=== PATIENT | male | born 1950 | race Caucasian/White ===

== ENCOUNTER 2023-04-14 08:57 | Outpatient (OUT) | payer MEDICARE, SELFPAY ==
[2023-04-14 09:23] LABS: Estimated Average Glucose 137 mg/dL; Glycohemoglobin A1C 6.4 % (4.5-6.2)
[2023-04-14 10:53] LABS: Anion Gap 7.7; BUN Creatinine Ratio 19.3; Calcium 9.5 mg/dL (8.5-10.1); Carbon Dioxide 35.7 mmol/L (21.0-32.0); Chloride 105 mmol/L (98-107); Estimated GFR (African America >60 (>=60); Estimated GFR (Non-African Ame >60 (>=60); Glucose 111 mg/dL (74-106); Potassium 4.4 mmol/L (3.5-5.1); Sodium 144 mmol/L (136-145)
== END 2023-04-14 08:58 | disposition home or self-care (01) ==
LOC: LAB 09:00
PROVIDERS: PCP Nurse Practitioner; Visit Provider Nurse Practitioner
DX: E11.9 Type 2 diabetes mellitus without complications (principal)
CPT/HCPCS: 36415; 80048; 83036

== ENCOUNTER 2024-01-17 10:53 | Outpatient (OUT) | payer MEDICARE, MEDICAID, SELFPAY ==
[2024-01-17 11:38] LABS: Estimated Average Glucose 131 mg/dL; Glycohemoglobin A1C 6.2 % (4.5-6.2)
[2024-01-17 11:40] LABS: Basophils Absolute Auto 0.1 10^3/uL (0.0-0.1); Basophils Percent Auto 1.4 % (0.2-2.0); Eosinophils Absolute Auto 0.4 10^3/uL (0.0-0.7); Eosinophils Percent Auto 5.2 % (0.9-7.0); Hematocrit 51.1 % (42.0-54.0); Hemoglobin 15.6 g/dL (14.0-18.0); Immature Granulocytes Abs Auto 0.01 10^3/uL (0.00-0.03); Immature Granulocytes Pct Auto 0.1 % (0.0-0.5); Lymphocytes Absolute Auto 1.7 10^3/uL (1.2-3.8); Lymphocytes Percent Auto 21.1 % (20.5-60.0); Mean Corpuscular HGB Conc 30.5 g/dL (29.9-35.2); Mean Corpuscular Hemoglobin 28.6 pg (25.9-34.0); Mean Corpuscular Volume 93.8 fL (80.0-94.0); Mean Platelet Volume 10.8 fL (9.5-13.5); Monocytes Absolute Auto 0.6 10^3/uL (0.3-0.8); Neutrophils Absolute Auto 5.1 10^3/uL (1.4-6.5); Neutrophils Percent Auto 64.2 % (43.0-75.0); Platelet Count 186 10^3/uL (150-450); Red Blood Count 5.45 10^6/uL (4.70-6.10); Red Cell Distribution Width 14.5 % (11.0-15.0); White Blood Count 7.9 10^3/uL (4.0-11.0)
[2024-01-17 11:48] LABS: Bilirubin Urine NEGATIVE (NEGATIVE); Blood Urine TRACE-I (NEGATIVE); Clarity Urine CLEAR (CLEAR); Color Urine LT. YELLOW (YELLOW); Glucose Urine UA NEGATIVE (NEGATIVE); Ketones Urine NEGATIVE (NEGATIVE); Leukocyte Esterase Urine TRACE (NEGATIVE); Nitrite Urine NEGATIVE (NEGATIVE); Protein Urine 100 mg/dL (NEG/TRACE); Specific Gravity Urine >=1.030 (1.005-1.025); Urobilinogen Urine 0.2 EU/dL (0.2-1.0); pH Urine 5.5 (5.0-9.0)
[2024-01-17 11:49] LABS: Urine Microscopic Indicated YES
[2024-01-17 11:56] LABS: RBC Urine 0-2 #/HPF (0-2); WBC Urine 0-2 #/HPF (NONE SEEN)
[2024-01-17 11:57] LABS: Bacteria Urine NONE SEEN #/HPF (NONE SEEN); Cast Seen? NONE SEEN #/LPF (NONE SEEN); Crystals Seen? None Seen #/HPF (None Seen); Mucus Urine NONE SEEN (NONE SEEN); Squamous Epithelial Cell Urine NONE SEEN #/LPF (NONE/RARE)
[2024-01-17 12:16] LABS: Alanine Aminotransferase 24 U/L (16-63); Albumin Globulin Ratio 0.8; Albumin Level 3.7 g/dL (3.4-5.0); Alkaline Phosphatase 96 U/L (46-116); Anion Gap 10.2; Aspartate Amino Transferase 14 U/L (15-37); BUN Creatinine Ratio 20.9; Bilirubin Total 0.6 mg/dL (0.2-1.0); Calcium 9.6 mg/dL (8.5-10.1); Carbon Dioxide 35.9 mmol/L (21.0-32.0); Chloride 102 mmol/L (98-107); Cholesterol 142 mg/dL (<=200); Estimated GFR (African America >60 (>=60); Estimated GFR (Non-African Ame >60 (>=60); Globulin 4.7 g/dL; Glucose 107 mg/dL (74-106); HDL Cholesterol 47 mg/dL (40-60); LDL Cholesterol Calculated 77.6 mg/dL; Potassium 4.1 mmol/L (3.5-5.1); Sodium 144 mmol/L (136-145); Total Protein 8.4 g/dL (6.4-8.2); Triglycerides 87 mg/dL (<=150); VLDL CHOLESTEROL 17.4 mg/dL
[2024-01-17 12:32] LABS: Prostate Specific Antigen Dx 4.02 ng/mL (<=4.00)
[2024-01-17 13:06] LABS: Creatinine Urine Random 100.18 mg/dL (20.00-300.00); Microalbum Creatinine Ratio Ur 281.4 mg/g (0.0-29.9); Microalbumin Urine Random 28.2 mg/dL (<=30.0)
[2024-01-19 04:07] LABS: PSA, Free 0.37 ng/mL
== END 2024-01-17 10:54 | disposition home or self-care (01) ==
LOC: LAB 10:55
PROVIDERS: PCP Nurse Practitioner; Visit Provider Nurse Practitioner
DX: R31.29 Other microscopic hematuria (principal); I10 Essential (primary) hypertension; Z12.5 Encounter for screening for malignant neoplasm of prostate; E11.9 Type 2 diabetes mellitus without complications; E78.2 Mixed hyperlipidemia; R97.20 Elevated prostate specific antigen [PSA]
CPT/HCPCS: 36415; 80053; 80061; 81001; 82043; 82570; 83036; 84153; 84154; 85025

== ENCOUNTER 2024-02-14 09:00 | Outpatient (OUT) | payer MEDICARE, MEDICAID, SELFPAY ==
[2024-02-14 09:33] LABS: Base Excess ABG 9.3 mmol/L (-2.0-2.0); HCO3 ABG 34.5 mmol/L (22.0-26.0); Oxygen Saturation ABG 86.7 %; pH ABG 7.378 (7.350-7.450)
[2024-02-14 09:34] LABS: Allen Test POSITIVE (POSITIVE); O2 Mode RA; Puncture Site LR
[2024-02-14 09:36] LABS: ABG PCO2 58.6 mmHg (35.0-45.0); PO2 ABG 51.1 mmHg (80.0-100.0)
--- NOTE | 2024-02-14 10:21 | RT_ITS ---
The [facility] Test Date: 2024-02-14 Pat Name: MARKEL RIGGINS Department: Room: - Gender: Male Medical Underwriter: Darell Pacheco RRT : 1950 Requested By: Suman Rutledge Order Number: [id number] Reading MD: Sumna Rutledge Interpretive Statements Pulmonary function testing was completed according to ATS criteria. Findings were considered accurate and reproducible, with exception of DLCO which did not meet ATS standards. Both pre- and post-bronchodilator values utilized for spirometry. Spirometry (based on pre-bronchodilator values): -FEV1/FVC: Normal @ 50% -FEV1: Severely reduced @ 36% -FVC: Severely reduced @ 53% -There is no significant bronchodilator response. Lung volumes by plethysmography (based on pre-bronchodilator values): -RV: Normal @ 113% -TLC: Mild-moderately reduced @ 70% Diffusion capacity: -DLCO: Severe reduction @ 42% when corrected for Hb 15.6g/dL Flow-volume loop: -Severe obstructive pattern Impressions: -Spirometry consistent with a severe obstruction without a bronchodilator response suggestive of COPD. There also appears to be a concomitant restrictive process with decreased TLC and DLCO. Clinical correlation required. Electronically Signed On 02-14-2024 16:23:46 EDT by Suman Rutledge
[2024-02-14] MEDS: ALBUTEROL SULFATE 2.5 MG/3 ML VIAL NEB IH (10:36)
== END 2024-02-14 09:01 | disposition home or self-care (01) ==
LOC: CARD 09:00
PROVIDERS: PCP Nurse Practitioner; Visit Provider Internal Medicine
DX: J43.2 Centrilobular emphysema (principal); J96.11 Chronic respiratory failure with hypoxia
CPT/HCPCS: 36600; 82805; 94060; 94726; 94729; 99406

== ENCOUNTER 2024-06-10 21:22 | Emergency (ER) | payer MEDICARE, MEDICAID, SELFPAY ==
[2024-06-10] VITALS (21 sets, daily range): BP systolic 96–122; BP diastolic 52–67; PULSE 66–80; TEMP 36.6; O2SAT 92–98; BMI 28.2
--- NOTE | 2024-06-10 21:35 | XR_ITS ---
The [address] [address] Patient Name: MARKEL RIGGINS MRN: [id number] date: 1950 Sex: M Assigned Patient Location: ED.MAIN Current Patient Location: ER Accession/Order Number: [id number] Exam Date: 06/10/2024 21:55 Report Date: 06/10/2024 22:57 At the request of: ARTI VALENZUELA Procedure: XR chest 1V EXAM: XR chest 1V HISTORY: SOB, hx of lung ca and pl effusion COMPARISON: CT chest 10/20/2023 TECHNIQUE: AP portable upright view of the chest FINDINGS: Moderate right and small left pleural effusions with adjacent hazy opacities. Vertical chronic scarring along the right lateral hemithorax is similar to CT 10/20/2023. Spiculated opacity in the right upper chest is also better visualized on CT. Prominent cardiomediastinal silhouette. No pulmonary vascular congestion or overt pneumothorax. No acute osseous or soft tissue abnormalities. XR/XR chest 1V IMPRESSION: 1.Moderate right and small left pleural effusions with adjacent hazy opacities. 2. Vertical chronic scarring along the right lateral hemithorax is similar to CT 10/20/2023. 3. Spiculated opacity/mass in the right upper chest is also better visualized on prior CT. Electronically authenticated by: LADONNA PISANO Date: 06/10/2024 22:57
--- NOTE | 2024-06-10 21:35 | ECG_ITS ---
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
--- OUTSIDE RECORDS SUMMARY | 2024-06-10 21:38 | XMS_ITS | CCD ---
Author Organization [facility] Care Team Providers Care Scientific Programmer Analyst Name Role Phone LANA EL Unavailable Unavailable AICHRUBIA MUÑOZA J. Unavailable Unavailable PHYSICIAN, DEFAULT Unavailable Unavailable PHYSICIAN, DEFAULT Unavailable Unavailable Aichholz GENO, Aidee Preston Primary Care Provider [phone] Jethro Escoto Unavailable Aichholz GENO, Aidee Preston Primary Care Provider Aichtawanaz GENO, Aidee Preston Primary Care Provider MISC, DR VASQUEZ Admitting Unavailable MISC, DR VASQUEZ Attending Unavailable AICHHOLZ, GROOMING ASSISTANT AIDEE Primary Care Unavailable AICHHOLZ, GROOMING ASSISTANT AIDEE Admitting Unavailable AICHHOLZ, GROOMING ASSISTANT AIDEE Attending Unavailable AICHHOLZ, GROOMING ASSISTANT AIDEE Primary Care Unavailable AICHHOLZ, GROOMING ASSISTANT AIDEE Consulting Unavailable AICHHOLZ, GROOMING ASSISTANT AIDEE Admitting Unavailable AICHHOLZ, GROOMING ASSISTANT AIDEE Attending Unavailable AICHHOLZ, GROOMING ASSISTANT AIDEE Primary Care Unavailable AICHHOLZ, GROOMING ASSISTANT AIDEE Consulting Unavailable Robin Mark RN Unavailable Robin Mark RN Unavailable Aichholz Aidee LORA Primary Care Provider [facility] AIDEE J Primary Care Physician AICHHOLZ, AIDEE Attending Unavailable AICHHOLZ, AIDEE Attending Unavailable AICHHOLZ, AIDEE Attending Unavailable Julita Jameson. Attending Unavailable AICHHOLZ, AIDEE J Referring Unavailable Julita Jameson. Attending Unavailable JADEN WHIPPLE Referring Unavailable JADEN WHIPPLE Attending Unavailable AICHHOLZ, AIDEE MINERVA Primary Care Unavailable JADEN WHIPPLE Referring Unavailable AICHHOLZ, AIDEE MINERVA Primary Care Unavailable JADEN WHIPPLE Referring Unavailable JADEN WHIPPLE Attending Unavailable AIDEE RAMESH Primary Care Unavailable JADEN WHIPPLE Referring Unavailable AIDEE RAMESH Primary Care Unavailable [facility] Primary Care Unavailable Gustavo, Dr. Brasher Referring Unavailable Gustavo, Dr. Brasher Attending Unavailable Dr. Shelia Blue Admitting Unavailable AIDEE RAMESH Primary Care Unavailable Blue, Dr. Brasher Attending Unavailable Gustavo, Dr. Brasher Admitting Unavailable Allergies Allergy Classification Reported Allergen(s) Allergy Type Date of Onset Reaction(s) Facility (1 source) No Known Medication Allergies; Translations: [No Known Medication Allergies] Propensity to adverse reactions (disorder) [facility] Repository Medications Current Medications Medication Drug Class(es) Dates Sig (Normalized) Sig (Original) Acetaminophen (2 sources) Tylenol NEEDE D Active amLODIPine 5 mg oral tablet (20 sources) Dihydropyridine Calcium Channel Chandni amLODIPine (NORVASC) 5 mg tablet Take 5 mg by mouth. Active Comment on above: Take 5 mg by mouth. Aspir-81 (2 sources) Aspir-81 Active Aspirin (20 sources) Platelet Aggregation Inhibitor, Nonsteroidal Anti-inflammatory Drug aspirin (ASPIR-81 ORAL) Take by mouth. Active aspirin (ASPIR-8 1 ORAL) Take by mouth. 0 Active Comment on above: Take by mouth. atorvastatin 20 mg oral tablet (20 sources) HMG-CoA Reductase Inhibitor Start: 02-28-20 24 atorvastatin 20 mg Tab Refills(s) 0 Start Date: 02/28/24 Status: Ordered Comment on above: Take 20 mg by mouth. 120 actuat budesonide 0.16 mg/actuat / formoterol fumarate 0.0048 mg/actuat / glycopyrrolate 0.009 mg/actuat metered dose inhaler (20 sources) Corticosteroid, beta2-Adrenergic Agonist Start: 10-12-19 take 2 puff(s) by inhalation twice daily budesonide-glycopyr -formoterol (BREZTRI AEROSPHERE) 160-9-4.8 mcg/actuation HFA aerosol inhaler Indications: Lung nodule , Chronic obstructive pulmonary disease, unspecified COPD type (HCC) , Nicotine dependence, chewing tobacco, with other nicotine-induced disorders Inhale 2 Puffs as instructed twice daily. 1 Inhaler 5 10/12/2021 Active Comment on above: Inhale 2 Puffs as in structed twice daily. losartan potassium 25 mg oral tablet (1 source) Angiotensin 2 Receptor Chandni Start: 02-28-20 losartan 25 mg Tab Refills(s) 0 Start Date: 02/28/24 Status: Ordered metFORMIN hydrochloride 500 mg oral tablet (20 sources) Biguanide Start: 02-28-20 metformin 500 mg Tab Refills(s) 0 Start Date: 02/28/24 Status: Ordered metFORMIN (GLUCO PHAGE) 500 mg tablet Take 2 tablets by mouth. Active take 1 tablet by charito th every twelve hours metFORMIN HCl 500 MG 1 tablet with a luis enrique l Orally BID Active Comment on above: Take 2 tablets by mo [facility]. methylPREDNISolone (11 sources) Corticosteroid Start: 01-19-2023 methylPREDNISolone (MEDROL, ORA,) 4 mg Dose-Pack Follow directions on pack. 21 tablet 01/19/2023 Active Start: 01-19-2023 methylPREDNISo lone (MEDROL, ORA,) 4 mg Dose-Pack Follow directions on pack. 21 tablet 0 01/19/2023 Active Comment on above: Follow directions on pack. sertraline 100 mg oral tablet (1 source) Serotonin Reuptake Inhibitor Start: 02-28-2024 sertraline 100 mg Tab Refills(s) 0 Start Date: 02/28/24 Status: Ordered Trelegy Ellipta 100 mcg-62.5 mcg-25 mcg inhalation powder (1 source) Start: 02-28-2024 Trelegy Ellipta 100 mcg-62.5 mcg-25 mcg inhalation powder Refills(s) 0 Start Date: 02/28/24 Status: Ordered Completed/Discontinued Medications Medication Drug Class(es) Dates Sig (Normalized) Sig (Original) albuterol 0.83 mg/ml inhalation solution (20 sources) beta2-Adrenergic Agonist Start: 07-05-2023 End: 02-14-2024 take 1 dose by inhalation three times daily as needed for wheezing albuterol (PROVENTIL) 2.5 mg /3 mL (0.083 %) nebulizer solution INHALE CONTENTS OF 1 VIAL VIA NEBULIZER 3 TIMES DAILY NEEDED FOR WHEEZING, SHORTNESS OF BREATH (INHALE OVER 5-15 MINUTES) 270 mL 5 07/05/2023 02/14/2024 Discontinued Start: 06-01-2022 End: 07-05-2023 take 2.5 mg by inhalation every eight hours as needed albuterol (PROVENTIL) 2.5 mg /3 mL (0.083 %) nebulizer solution Use 3 mL via nebulizer three times daily as needed for wheezing/shortness of breath. Inhale over 5-15 minutes 252 mL 3 06/01/2022 07/05/2023 Discontinued take 2 puff(s) by in halation every six hours as needed albuterol HFA (PROVENTIL HFA, VENTOLIN HFA) 90 mcg/actuation inhaler Inhale 2 Puffs as instructed every 6 hours as needed. Active Albuterol Sulfat e (2.5 MG/3ML) 0.083% 3 ml as needed Inhalation every 6 hrs Active Comment on above: Inhale 2 Puffs as in structed every 6 hours as needed. Use 3 mL via nebuliz er three times daily as needed for wheezing/shortness of breath. Inhale over 5-15 minutes INHALE CONTENTS OF 1 VIAL VIA NEBULIZER 3 TIMES DAILY NEEDED FOR WHEEZING, SHORTNESS OF BREATH (INHALE OVER 5-15 MINUTES) albuterol 0.833 mg/ml / ipratropium bromide 0.167 mg/ml inhalation solution (17 sources) Anticholinergic, beta2-Adrenergic Agonist Start: 11-05-19 End: 06-01-20 22 ipratropium-albutero l (DUONEB) 0.5 mg-3 mg(2.5 mg base)/3 mL nebu fluticasone-umeclidi n-vilanter (TRELEGY ELLIPTA) 200-62.5-25 mcg dsdv (20 sources) Start: 02-06-20 21 End: 09-20-19 23 take 1 dose by inhalation once daily fluticasone-umeclidi n-vilanter (TRELEGY ELLIPTA) 200-62.5-25 mcg dsdv Inhale 1 Inhalation as instructed once daily. 1 Each 0 02/05/2021 09/20/2022 Discontinued (Course of therapy completed) Start: 02-05-2021 take 1 dose by inhalation once daily zptzqnnbbwm-bhdlvesct-djcbexjb (TRELEGY ELLIPTA) 200-62.5-25 mcg dsdv Inhale 1 Inhalation as instructed once daily. 1 Each 0 02/05/2021 Active Comment on above: Inhale 1 Inhalation as instructed once daily. Problems Active Problems Problem Classification Problem Date Documented Date Episodic/Chronic Calculus of urinary tract (2 sources) Kidney stone; Translations: [Calculus of kidney] Onset: 02-28-2024 Episodic Cancer of bronchus; lung (20 sources) Malignant neoplasm of right upper lobe of lung; Translations: [Malignant neoplasm of upper lobe, right bronchus or lung] Onset: 09-20-2022 Chronic Chronic obstructive pulmonary disease and bronchiectasis (20 sources) Chronic obstructive lung disease; Translations: [Chronic obstructive pulmonary disease, unspecified] Onset: 09-20-2022 Chronic Diabetes mellitus without complication (20 sources) Type 2 diabetes mellitus without complication; Translations: [Type 2 diabetes mellitus without complications] Onset: 06-29-2020 09-21-2022 Chronic Disorders of lipid metabolism (20 sources) Hyperlipidemia; Translations: [Hyperlipidemia, unspecified] Onset: 09-20-2022 09-20-2022 Chronic Diverticulosis and diverticulitis (1 source) Diverticulitis 02-26-2024 Chronic Esophageal disorders (1 source) Gastroesophageal reflux disease 02-26-2024 Chronic Essential hypertension (20 sources) Benign essential hypertension; Translations: [Essential (primary) hypertension] Onset: 09-20-2022 09-20-2022 Chronic Genitourinary symptoms and ill-defined conditions (1 source) Microscopic hematuria 02-26-2024 Episodic Hyperplasia of prostate (1 source) Benign prostatic hypertrophy without outflow obstruction 02-26-2024 Chronic Neoplasms of unspecified nature or uncertain behavior (5 sources) Neoplasm of right upper lobe of lung; Translations: [Neoplasm of unspecified behavior of respiratory system] Episodic Other diseases of kidney and ureters (1 source) Acquired renal cyst without neoplastic change; Translations: [Cyst of kidney, acquired] Onset: 02-28-2024 Episodic Other diseases of kidney and ureters (2 sources) Cyst of kidney 02-26-2024 Episodic Other lower respiratory disease (6 sources) Nodule of lung; Translations: [Solitary pulmonary nodule] Episodic Other lower respiratory disease (4 sources) Multiple nodules of lung; Translations: [Other nonspecific abnormal finding of lung field] Episodic Other male genital disorders (2 sources) Male erectile dysfunction, unspecified; Translations: [Erectile dysfunction] Onset: 02-28-2024 Chronic Other screening for suspected conditions (not mental disorders or infectious disease) (1 source) Raised prostate specific antigen; Translations: [Elevated prostate specific antigen [PSA]] Onset: 02-26-2024 Episodic Pleurisy; pneumothorax; pulmonary collapse (3 sources) Pleural effusion; Translations: [Pleural effusion, not elsewhere classified] Onset: 05-07-2024 05-07-2024 Episodic Residual codes; unclassified (1 source) Family history of cancer; Translations: [Family history of malignant neoplasm of prostate] Onset: 02-28-2024 Episodic Residual codes; unclassified (1 source) Family history of prostate cancer 02-28-2024 Episodic Substance-related disorders (20 sources) Nicotine dependence, cigarettes, with unspecified nicotine-induced disorders; Translations: [Nicotine dependence] Onset: 03-24-2017 Chronic Unclassified (1 source) Measurement finding 02-26-2024 Past or Other Problems Problem Classification Problem Date Documented Da te Episodic/Chronic Gastritis and duodenitis (1 source) Duodenitis; Translations: [Duodenitis without bleeding] Episodic Gastrointestinal hemorrhage (3 sources) Dark stools; Translations: [Melena] Onset: 08-17-2021 Resolved: 08-17-2021 Episodic Immunizations and screening for infectious disease (2 sources) Interferon gamma assay result indeterminate; Translations: [Nonspecific reaction to cell mediated immunity measurement of gamma interferon antigen response without active tuberculosis] Episodic Other gastrointestinal disorders (2 sources) Diarrhea; Translations: [Diarrhea, unspecified] Episodic Other gastrointestinal disorders (1 source) Diarrhea, unspecified Onset: 08-17-2021 Resolved: 08-17-2021 Episodic Other lower respiratory disease (2 sources) Solitary nodule of lung; Translations: [Solitary pulmonary nodule] Episodic Other lower respiratory disease (20 sources) Abnormal findings on diagnostic imaging of lung; Translations: [Other nonspecific abnormal finding of lung field] Onset: 09-20-2022 Episodic Results Test Name Value Interpretation Reference Range Facility BODY FLUID CELL COUNTon 04-19 Clarity (Unsp spec) Not Indicated Normal Clear Cl [facility] Comment on above: Order Comment: Speci men Type: SPECIMEN FROM PLEURA OBTAINED BY THORACENTESIS Ordering Facility: [facility] Address: [address] [place] [address] Performed By: #### 2 529-6, 2344-0, 2880-1 #### [facility] CLIA [id number] [address] [place] [address] [place] Color (Body fld) Not Indicated Normal Yellow [facility] Comment on above: Order Comment: Speci men Type: SPECIMEN FROM PLEURA OBTAINED BY THORACENTESIS Ordering Facility: [facility] Address: [address] [place] [address] Performed By: #### 2 529-6, 2344-0, 2880-1 #### [facility] CLIA [id number] [address] [place] [address] [place] RBC Manual cnt (Body fld) [#/Vol] 2000 /uL High <2000 [facility] Comment on above: Order Comment: Speci men Type: SPECIMEN FROM PLEURA OBTAINED BY THORACENTESIS Ordering Facility: [facility] Address: [address] [place] [address] Performed By: #### 2 529-6, 2343-0, 2880-09 #### [facility] CLIA [id number] [address] [place] [address] [place] Specimen source Nom (Body fld) Pleural Cavity, Right Normal [facility] Comment on above: Order Comment: Speci men Type: SPECIMEN FROM PLEURA OBTAINED BY THORACENTESIS Ordering Facility: [facility] Address: [address] [place] [address] Performed By: #### 2 529-6, 2344-0, 2880-09 #### [facility] CLIA [id number] [address] [place] [address] [place] WBC Manual cnt (Body fld) [#/Vol] 994 /uL Normal <1000 [facility] Comment on above: Order Comment: Speci men Type: SPECIMEN FROM PLEURA OBTAINED BY THORACENTESIS Ordering Facility: [facility] Address: [address] [place] [address] Performed By: #### 2 529-6, 2344-0, 2881-1 #### [facility] CLIA [id number] [address] [place] [address] [place] Bacteria Fld Culton 05-07-20 24 Bacteria identified Cx Nom (Body fld) CULTURE, BODY FLD: No growth GRAM STAIN: No organisms seen Many Polymorphonuclear leukocytes Gram stain performed on cytospun specimen. Gram stain from primary specimen Normal [facility] Comment on above: Performed By: #### 2 529-6, 2344-0, 2881-1 #### [facility] CLIA [id number] [address] [place] [address] [place] Bacteria Spec Anaerobe Culto n 05-07-2024 Bacteria identified Anaer cx Nom (Unsp spec) ORGANISM ID: 1 Rare Cutibacterium acnes Susceptibility testing on C. acnes not performed due to predictable susceptibility to penicillin. C. acnes is intrinsically resistant to metronidazole. Normal [facility] Comment on above: Performed By: #### 2 529-6, 2344-0, 2881-1 #### [facility] CLIA [id number] [address] [place] [address] [place] CYTOLOGY NON-GYNon 4 CASE REPORT Normal [facility] Comment on above: Order Comment: Speci men Type: SPECIMEN FROM PLEURA OBTAINED BY THORACENTESIS Ordering Facility: [facility] Address: [address] [place] [address] Result Comment: [facility] Cytology Report Case: [id number] Authorizing Provider: Shelia Blue MD Collected: 05/07/2024 02:12 PM Ordering Location: Admitting Received: 05/07/2024 08:44 PM Pathologist: Christian Cates MD Specimen: Pleural Cavity, Right Performed By: #### C YTONON #### [facility] CLIA [id number] [address] [place] [address] [place] CLINICAL HISTORY Normal [facility] Comment on above: Order Comment: Speci men Type: SPECIMEN FROM PLEURA OBTAINED BY THORACENTESIS Ordering Facility: [facility] Address: [address] [place] [address] Result Comment: Pre- op diagnosis: Bronchiolar disease [J98.09] Performed By: #### C YTONON #### [facility] CLIA [id number] [address] [place] [address] [place] FINAL DIAGNOSIS Normal [facility] Comment on above: Order Comment: Speci men Type: SPECIMEN FROM PLEURA OBTAINED BY THORACENTESIS Ordering Facility: [facility] Address: [address] [place] [address] Result Comment: A - Pleural Cavity, Right, Fluid, Thoracentesis Negative for malignant cells. Marked chronic inflammation. The following cell blocks were associated with this case: A1 Cell Block, Alcohol Fixed Performed By: #### C YTONON #### [facility] CLIA [id number] [address] [place] [address] [place] FINAL PERFORMING LAB Normal [facility] Comment on above: Order Comment: Speci men Type: SPECIMEN FROM PLEURA OBTAINED BY THORACENTESIS Ordering Facility: [facility] Address: [address] [place] [address] Result Comment: Tech nical component, voice professor screening performed at [facility], [address] [place], [place] [id number] CLIA# [id number] Diagnostic interpretation performed at [facility], [address] [place] [id number] CLIA# [id number] Commercial Account Officer: Hiram Parsons M.D. Performed By: #### C YTONON #### [facility] CLIA [id number] [address] [place] [address] [place] GROSS DESCRIPTION Normal [facility] Comment on above: Order Comment: Speci men Type: SPECIMEN FROM PLEURA OBTAINED BY THORACENTESIS Ordering Facility: [facility] Address: [address] [place] [address] Result Comment: A. P leural Cavity, Right 60 cc cloudy j luis fluid with material. ThinPrep and Cell Block prepared. Performed By: #### C SAGAR #### [facility] CLIA [id number] [address] [place] [address] [place] ORDER COMMENT Normal [facility] Comment on above: Order Comment: Speci men Type: SPECIMEN FROM PLEURA OBTAINED BY THORACENTESIS Ordering Facility: [facility] Address: [address] [place] [address] Result Comment: Pre- op diagnosis: Bronchiolar disease [J98.09] Performed By: #### C SAGAR #### [facility] CLIA [id number] [address] [place] [address] [place] Glucose Fld-mCncon 4 Glucose (Body fld) [Mass/Vol] 112 mg/dL Normal See Comment [facility] Comment on above: Order Comment: Speci men Type: SPECIMEN FROM PLEURA OBTAINED BY THORACENTESIS Ordering Facility: [facility] Address: [address] [place] [address] Result Comment: Syno vial fluid: Synovial fluid glucose measurement may be useful in classifying various joint disorders. A concurrent plasma glucose measurement should be performed to determine the glucose plasma minus glucose synovial fluid???difference, which is normally <= 10.0 mg/dL. Artificial lowering of synovial fluid glucose, due to glycolytic action of leukocytes, may result from analyses that occur more than one hour from the time of collection. Reference: 1. CLSI. Analysis of Body Fluids in Clinical Chemistry Approved Guideline. CLSI document C49A. SIMA Gonzalez: Clinical Laboratory Standards [place]: 2007. Performed By: #### 2 529-6, 2344-0, 2881-1 #### [facility] CLIA [id number] [address] [place] [address] [place] HISTORY PHYSICALon 4 HISTORY PHYSICAL HNO ID: [id number] Author: SHELIA BLUE MD Service: Critical Care Author Type: Physician Type: H&P Filed: 05/07/2024 14:42 Note Text: Impression / Recommendations 73 year old M with history of treated malignancy of the RUL now with increasing Rt-sided pleural effusion. Pleural effusion -will proceed with diagnostic therapeutic thoracentesis. Will send fluid for routine cell count, chemistry, cytology. -risks, benefits of thoracentesis procedure discussed with patient. -obtain post thoracentesis CXR to document lung re-expansion. Thank you for allowing me to participate in the care of Markel Riggins. Please feel free to contact me with any questions or concerns. Shelia Blue MD Consulting Physician Jaden Whipple MD Reason for the Consult Markel Riggins presents today for consultation / opinion regarding pleural effusion. My impression and final recommendations will be communicated back to the requesting physician by way of shared medical record or letter via US mail. 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 Patient reports symptoms of shortness of breath the past 2-3 weeks. He had some chills a couple days ago. Weight is down 50 lbs due to loss of appetite. No significant cough or sputum production. He recently had his surveillance CT with radiation oncology. CT chest showed large right-sided pleural effusion for which he is referred today for a thoracentesis. Past Medical History PAST MEDICAL HISTORY No date: COPD (chronic obstructive pulmonary disease) (HCC) No date: Diabetes (HCC) No date: High cholesterol No date: HTN (hypertension) 12/2020: Lung nodule No date: Melanoma (HCC) Comment: left ear There is no immunization history on file for this patient. Past Surgical History PAST SURGICAL HISTORY No date: APPENDECTOMY 2018: KNEE SURGERY HX Comment: left knee replacement Medications albuterol (PROVENTIL) 2.5 mg /3 mL (0.083 %) nebulizer solutionINHALE CONTENTS OF 1 VIAL VIA NEBULIZER 3 TIMES DAILY NEEDED FOR WHEEZING, SHORTNESS OF BREATH (INHALE OVER 5-15 MINS)Disp: 270 mLRfl: 11 methylPREDNISolone (MEDROL, ORA,) 4 mg Dose-PackFollow directions on pack.Disp: 21 tabletRfl: 0 infdocxxxl-msehpszc-ki rmoterol (BREZTRI AEROSPHERE) 160-9-4.8 mcg/actuation HFA aerosol inhalerInhale 2 Puffs as instructed twice daily.Disp: 1 InhalerRfl: 5 aspirin (ASPIR-81 ORAL)Take by mouth.Disp: Rfl: albuterol HFA (PROVENTIL HFA, VENTOLIN HFA) 90 mcg/actuation inhalerInhale 2 Puffs as instructed every 6 hours as needed.Disp: Rfl: amLODIPine (NORVASC) 5 mg tabletTake 5 mg by mouth.Disp: Rfl: atorvastatin (LIPITOR) 20 mg tabletTake 20 mg by mouth.Disp: Rfl: metFORMIN (GLUCOPHAGE) 500 mg tabletTake 2 tablets by mouth. Disp: Rfl: Allergies ALLERGIES No Known Allergies Family History FAMILY HISTORY Problem Relation Age of Onset Heart disease Father other (kidney cancer) Father Cancer Sister Prostate Cancer Brother Social History Social History Tobacco Use Smoking status: Every Day Current packs/day: 1.00 Average packs/day: 1 pack/day for 51.6 years (51.6 ttl pk-yrs) Types: Cigarettes Start date: 1971 Smokeless tobacco: Never Tobacco comments: Currently smoking 0.5 pack a day. 09/20/22 - smokes 1 pack over 3 days. Vaping Use Vaping status: Never Used Substance Use Topics Alcohol use: Not Currently Drug use: Not Currently Review of Systems As per HPI. Physical Exam BP 133/70 Pulse 75 Temp 96.8 Resp 16 SpO2 98% O2 Therapy: Nasal Cannula, Liters: 2 GEN: Alert, oriented x 3, NAD, speaking in full sentences, well nourished, affect normal Diagnostic Data CT Chest 04/30/2024: Lung parenchyma and airways: Unchanged postradiation scarring with parenchymal retraction and volume loss in right upper lobe, in keeping with treated neoplasm measuring 3.2 x 3.0 cm in the AP dimension on image 60. There are additional centrilobular nodules, subpleural reticulations and associated traction bronchiectasis throughout the right upper lobe consistent with post radiation changes with an adjacent pleural effusion as described below. Upper lobe predominant centrilobular/parasept al emphysema. Mild diffuse bronchial wall thickening. Scattered sub-3 mm pulmonary nodules. No suspicious pulmonary nodule. The central airways are patent. Pleural space: Interval increase in large right-sided pleural effusion measuring near simple fluid attenuation that is loculated and tracking posteriorly from the base to the apex. No pleural thickening. Lower neck, lymph nodes, and mediastinum: The imaged thyroid gland is normal. No lymphadenopa (more content not included)... Normal [facility] LDH Fld[facility] 05-07-2024 LDH (Body fld) [Catalytic activity/Vol] 124 U/L Normal See Comment [facility] Comment on above: Order Comment: Speci men Type: SPECIMEN FROM PLEURA OBTAINED BY THORACENTESIS Ordering Facility: [facility] Address: [address] [place] [address] Result Comment: Pleu ral fluids: Pleural fluid lactate dehydrogenase (LDH) measurements may be useful for classifying pleural effusions as exudates. A ratio of pleural fluid LDH to a concurrent serum LDH > 0.6 is suggestive of exudate. Peritoneal fluids: Ascitic fluid LDH measurements may aid in characterizing secondary peritonitis and should be interpreted along with other clinical and laboratory information. Synovial fluids: Synovial fluid LDH measurements may be useful as an inflammatory marker for various arthritic conditions and should be interpreted along with other clinical and laboratory information. Reference: 1. CLSI. Analysis of Body Fluids in Clinical Chemistry Approved Guideline. CLSI document C49A. [place], [place]: Clinical Laboratory Standards [place]: 2007. Reference: 2. Hemant DIXON, Leonor Diane. Body fluid analysis: clinical utility and applicability of published studies to guide interpretation of today's laboratory testing in serous fluids. Crit Rev Clin Lab Sci, 2013:50(4,5):107 to 124. Reference: 3. Brii Saha, Jeannie Diane, Amrita DIXON. Lactate dehydrogenase activity and its isoenzymes in serum and synovial fluid of patients with rheumatoid arthritis and osteoarthritis. J Rheumatol. 1992:19:529 to 533. Performed By: #### 2 529-6, 2344-0, 288-1 #### [facility] CLIA [id number] [address] [place] [address] [place] MANUAL DIFFERENTIAL, BODY FL UIDon 05-07-2024 DIF TTL, BODY FLUID 100 cells counted Normal [facility] Comment on above: Order Comment: Speci men Type: SPECIMEN FROM PLEURA OBTAINED BY THORACENTESIS Ordering Facility: [facility] Address: [address] [place] [address] Performed By: #### 2 529-6, 2344-0, 288-1 #### [facility] CLIA [id number] [address] [place] [address] [place] EOSIN%, BF 2 % Normal [facility] Comment on above: Order Comment: Speci men Type: SPECIMEN FROM PLEURA OBTAINED BY THORACENTESIS Ordering Facility: [facility] Address: [address] [place] [address] Performed By: #### 2 529-6, 2344-0, 2880-1 #### [facility] CLIA [id number] [address] [place] [address] [place] LYMPH%, BF 47 % High 18-36 [facility] Comment on above: Order Comment: Speci men Type: SPECIMEN FROM PLEURA OBTAINED BY THORACENTESIS Ordering Facility: [facility] Address: [address] [place] [address] Performed By: #### 2 529-6, 2344-0, 288-1 #### [facility] CLIA [id number] [address] [place] [address] [place] MACRO%, BF 38 % Low 64-80 [facility] Comment on above: Order Comment: Speci men Type: SPECIMEN FROM PLEURA OBTAINED BY THORACENTESIS Ordering Facility: [facility] Address: [address] [place] [address] Performed By: #### 2 529-6, 2344-0, 2881-1 #### [facility] CLIA [id number] [address] [place], [place] [address] [place] MESO %, BF 6 % High 0-2 [facility] Comment on above: Order Comment: Speci men Type: SPECIMEN FROM PLEURA OBTAINED BY THORACENTESIS Ordering Facility: [facility] Address: [address] [place] [address] Performed By: #### 2 529-6, 2344-0, 2881-1 #### [facility] CLIA [id number] [address] [place] [address] [place] NEUT%, BF 7 % High 0-1 [facility] Comment on above: Order Comment: Speci men Type: SPECIMEN FROM PLEURA OBTAINED BY THORACENTESIS Ordering Facility: [facility] Address: [address] [place] [address] Performed By: #### 2 529-6, 2344-0, 2881-1 #### [facility] CLIA [id number] [address] [place] [address] [place] OPERATIVE NOon 05-07-2024 OPERATIVE NO HNO ID: [id number] Author: SHELIA BLUE MD Service: Pulmonary Disease Author Type: Physician Type: Operative Report Filed: 05/07/2024 16:36 Note Text: THORACENTESIS NOTE SERVICE DATE: 05/07/2024 SERVICE TIME: 1417 LOCATION: Outpatient PROCEDURE: Right Thoracentesis with Ultrasound guidance VETERINARY MEDICINE TEACHER: Shelia Blue MD ARMED SECURITY PROFESSIONAL: Jae Yousif MD (fellow) REFERRING PHYSICIAN/SERVICE Jaden Whipple MD PRE - PROCEDURE DIAGNOSIS: Pleural effusion POST PROCEDURE DIAGNOSIS: Pleural effusion INDICATION: Diagnostic and Therapeutic SAFE PRACTICE: Informed consent obtained and filed in patient's chart. SAFE PRACTICE Sign in Communication: Completed. Time Out: The procedural team confirmed the Correct Patient, the Correct Procedure, the Correct Site and the Correct Position (if applicable) during the audible time out: Completed. Sign Out Communication: Completed. PROCEDURE START TIME: 1418 IMAGING GUIDANCE: Ultrasound was used. Images were recorded. ULTRASOUND FINDINGS: The Right chest was scanned using ultrasound. A large sized effusion was seen. Septations: Absent. Pleural nodules: Absent. Pleural thickening was Absent. ANESTHESIA: Local, using 10ml of 1% Lidocaine. SEDATION: No PROCEDURE DETAIL: After scanning the chest the appropriate site for thoracentesis was marked and was prepped using Chlorhexidine Gluconate Local anesthesia was administered. A standard thoracentesis needle and catheter were advanced into the right fluid collection without any difficulty. Once the fluid collection was found, the catheter was advanced further into the pleural space, the needle was removed, and drainage was initiated using a wall suction method. Once drainage was completed the catheter was removed and the site was bandaged. The fluid was sent to the lab for further analysis. FLUID COLOR: Serous TOTAL FLUID REMOVED: 1550mL THORACENTESIS PRESSURES: Intrapleural pressures not measured. PROCEDURE END TIME: 1434 PROCEDURE TERMINATED DUE TO: No further drainage IMMEDIATE COMPLICATIONS: None POST PROCEDURE ULTRASOUND: done, with the following findings: no fluid remaining on post-US. Good apposition of lung IMPRESSION: Completed Right thoracentesis with approximately 1550mL of fluid withdrawal. Estimated blood loss: none. SIGNATURE: Jae Yousif MD PATIENT NAME: Markel Riggins DATE: May 07, 2024 TIME: 2:43 PM PAGER/CONTACT #: Attending Note For the thoracentesis procedure, I was physically present during the entire procedure. Signature: Shelia Blue MD Date: 05/07/2024 Time: 4:35 PM Normal [facility] PH PLEURAL FLUID (FOR USE [facility])on 05-07-2024 Fluid Nom (Body fld) Pleural Cavity, Right Normal [facility] Comment on above: Order Comment: Speci men Type: SPECIMEN FROM PLEURA OBTAINED BY THORACENTESIS Ordering Facility: [facility] Address: [address] [place] [address] Performed By: #### 2 529-6, 2344-0, 2881-1 #### [facility] CLIA [id number] [address] [place] [address] [place] [address] [place] pH (Body fld) 7.7 [pH] Normal [facility] Comment on above: Order Comment: Speci men Type: SPECIMEN FROM PLEURA OBTAINED BY THORACENTESIS Ordering Facility: [facility] Address: [address] [place] [address] Result Comment: No r eference range has been established for this specimen type. This test was developed and its performance characteristics determined by [facility] [place] ([facility] It has not been cleared or approved by the FDA. [facility] is regulated under CLIA as qualified to perform high-complexity testing. This test is used for clinical purposes. It should not be regarded as investigational or for research. Performed By: #### 2 529-6, 2344-0, 288-1 #### [facility] CLIA [id number] [address] [place] [address] [place] [facility] Protein (Body fld) [Mass/Vol] 4.8 g/dL Normal See Comment [facility] Comment on above: Order Comment: Speci men Type: SPECIMEN FROM PLEURA OBTAINED BY THORACENTESIS Ordering Facility: [facility] Address: [address] [place] [address] Result Comment: Sero us fluids: Effusions are the accumulation of clinically detected fluid in any of the serous cavities. Effusions are further into transudates and exudates, which aid in determining the etiology of the effusion. Transudate: Body fluid total protein measurement < 3.0 g/dL. A ratio of serous fluid total protein to a concurrent serum total protein < 0.5 indicates a transudate. Exudate: Body fluid total protein measurement >= 3.0 g/dL. A ratio of serous fluid total protein to a concurrent serum total protein >= 0.5 indicates an exudate. Reference: 1. CLSI. Analysis of Body Fluids in Clinical Chemistry Approved Guideline. CLSI document C49A. SIMA Gonzalez: Clinical Laboratory Standards [place]: 2007. Performed By: #### 2 529-6, 2344-0, 288-1 #### [facility] CLIA [id number] [address] [place] [address] [place] [facility] XR CHEST 2V FRONTAL/LATon XR CHEST 2V FRONTAL/LAT * * *Final Report* * * DATE OF EXAM: May 07 2024 3:06PM ZAK [id number] - XR CHEST 2V FRONTAL/LAT / PROCEDURE REASON: * * * * Physician Interpretation * * * * EXAMINATION: CHEST RADIOGRAPH (2 VIEW FRONTAL and LATERAL) CLINICAL HISTORY: Pleural effusion MQ: XC2_6 EXAM DATE/TIME: 05/07/2024 3:06 PM COMPARISON: CT chest, 04/30/2024 RESULT: Lines, tubes, and devices: None. Lungs and pleura: There is a spiculated nodule in the right upper lobe which likely represents treated malignancy with postradiation fibrosis in the surrounding parenchyma. There is a small right pleural effusion with mild atelectasis in the right lung base. No new consolidations in the left lung and no left No pleural effusion. No pneumothorax. Cardiomediastinal silhouette: Normal cardiomediastinal silhouette. Bones and soft tissues: Degenerative changes are present within the thoracic spine. IMPRESSION: See result. Quality Specialist: ASHLEY Transcribe Date/Time: May 07 2024 6:32P Dictated by : ERNIE MACHADO MD This examination was interpreted and the report reviewed and electronically signed by: ERNIE MACHADO MD on May 07 2024 6:32PM EST [id number] Normal [facility] XR Chest PA and Lateralon IMPRESSION: See result. Quality Specialist: PSCShari Transcribe Date/Time: May 07 2024 6:32P Dictated by : ERNIE MACHADO MD This examination was interpreted and the report reviewed and electronically signed by: ERNIE MACHADO MD on May 07 2024 6:32PM EST DIVISION OF RADIOLOGY * * *Final Report* * * DATE OF EXAM: May 07 2024 3:06PM ZAK [id number] - XR CHEST 2V FRONTAL/LAT / PROCEDURE REASON: * * * * Physician Interpretation * * * * EXAMINATION: CHEST RADIOGRAPH (2 VIEW FRONTAL & LATERAL) CLINICAL HISTORY: Pleural effusion MQ: XC2_6 EXAM DATE/TIME: 05/07/2024 3:06 PM COMPARISON: CT chest, 04/30/2024 RESULT: Lines, tubes, and devices: None. Lungs and pleura: There is a spiculated nodule in the right upper lobe which likely represents treated malignancy with postradiation fibrosis in the surrounding parenchyma. There is a small right pleural effusion with mild atelectasis in the right lung base. No new consolidations in the left lung and no left No pleural effusion. No pneumothorax. Cardiomediastinal silhouette: Normal cardiomediastinal silhouette. Bones and soft tissues: Degenerative changes are present within the thoracic spine. DIV[facility]OLOGY [facility] * * *Final Report* * * DATE OF EXAM: May 07 2024 3:06PM ZAK [id number] - XR CHEST 2V FRONTAL/LAT / PROCEDURE REASON: * * * * Physician Interpretation * * * * EXAMINATION: CHEST RADIOGRAPH (2 VIEW FRONTAL & LATERAL) CLINICAL HISTORY: Pleural effusion MQ: XC2_6 EXAM DATE/TIME: 05/07/2024 3:06 PM COMPARISON: CT chest, 04/30/2024 RESULT: Lines, tubes, and devices: None. Lungs and pleura: There is a spiculated nodule in the right upper lobe which likely represents treated malignancy with postradiation fibrosis in the surrounding parenchyma. There is a small right pleural effusion with mild atelectasis in the right lung base. No new consolidations in the left lung and no left No pleural effusion. No pneumothorax. Cardiomediastinal silhouette: Normal cardiomediastinal silhouette. Bones and soft tissues: Degenerative changes are present within the thoracic spine. IMPRESSION IMPRESSION: See result. Quality Specialist: PSCB Transcribe Date/Time: May 07 2024 6:32P Dictated by : ERNIE MACHADO MD This examination was interpreted and the report reviewed and electronically signed by: ERNIE MACHADO MD on May 07 2024 6:32PM EST [facility] Study observation (narrative) [facility] XR Chest PA and LateralOrder ed By: [facility] Provider on 05-07-2024 [facility] NURSING PROGon 05-06-2024 NURSING PROG HNO ID: [id number] Author: NIKKIE JEAN BAPTISTE RN Service: Nursing Author Type: Registered Nurse Type: Nursing Progress Note Filed: 05/06/2024 10:44 Note Text: AMBULATORY PATIENT EDUCATION TOPIC: bronchoscopy READINESS TO LEARN COGNITIVE ABILITY: Alert and oriented MOTIVATION TO LEARN: Interested FAMILY SUPPORT: None - Unavailable/disinteres reina INSTRUCTION PROVIDED TO: Patient PATIENT LEARNS BEST BY: Individual Instruction Verbal Instruction FACTORS AFFECTING LEARNING: None PHYSICAL LIMITATIONS AFFECTING LEARNING: None LEARNING RESPONSE DIAGNOSIS: lung disease METHOD OF INSTRUCTION: Individual instruction Verbal instruction PATIENT / FAMILY RESPONSE: Verbalizes understanding of: PRE-PROCEDURE INSTRUCTIONS-Correct action to take to follow pre-procedure instructions FOLLOW-UP PLAN: Complete - No need for follow-up SUPPLEMENTAL MATERIAL: None REFERRAL (RECOMMENDATION): None Electronically Signed By: Nikkie Jean Baptiste RN In Department: ADMITTING Normal [facility] 05-02-2024 CNPN Telephone ([id number]) MARKEL RIGGINS ([id number]) 1950 M Date Time Provider Department 05/02/24 LADY VIDAL [id number] During your visit today, we recorded the following information about you: Allergies As of Date: 05/02/2024 (No Known Allergies) Date Reviewed: 01/19/2023 Reviewed by: Nena Bruner RN - Fully Assessed Reason for Visit: Appointment [186] Cmt: Thoracentesis Prescriptions as of 05/02/2024 - albuterol (PROVENTIL) 2.5 mg /3 mL (0.083 %) nebulizer solution INHALE CONTENTS OF 1 VIAL VIA NEBULIZER 3 TIMES DAILY NEEDED FOR WHEEZING, SHORTNESS OF BREATH (INHALE OVER 5-15 MINS) - methylPREDNISolone (MEDROL, ORA,) 4 mg Dose-Pack Follow directions on pack. - irciclzgql-tpalqwfn-zt rmoterol (BREZTRI AEROSPHERE) 160-9-4.8 mcg/actuation HFA aerosol inhaler Inhale 2 Puffs as instructed twice daily. - aspirin (ASPIR-81 ORAL) Take by mouth. - albuterol HFA (PROVENTIL HFA, VENTOLIN HFA) 90 mcg/actuation inhaler Inhale 2 Puffs as instructed every 6 hours as needed. - amLODIPine (NORVASC) 5 mg tablet Take 5 mg by mouth. - atorvastatin (LIPITOR) 20 mg tablet Take 20 mg by mouth. - metFORMIN (GLUCOPHAGE) 500 mg tablet Take 2 tablets by mouth. Problem List As Of Date 05/02/2024 Noted Resolved Type 2 diabetes mellitus without complications *06/29/2020 Nicotine dependence, cigarettes, uncomplicated *11/19/2020 Chronic obstructive lung disease (HCC) [J44.9] 09/20/2022 Benign essential hypertension [I10] 09/20/2022 Hyperlipidemia [E78.5] 09/20/2022 Preoperative examination [Z01.818] 09/20/2022 Abnormal finding on lung imaging [R91.8] 09/20/2022 Lung cancer (HCC) [C34.90] 09/20/2022 Encounter Status:Closed by LADY LINDO on 05/02/24 [facility] Telephone ([id number]) MARKEL RIGGINS ([id number]) 1950 Date Time Provider Department 05/02/24 LADY VIDAL [id number] During your visit today, we recorded the following information about you: Allergies As of Date: 05/02/2024 (No Known Allergies) Date Reviewed: 01/19/2023 Reviewed by: Nena Bruner, EARNEST - Fully Assessed Reason for Visit: Appointment [186] Cmt: Thoracentesis Prescriptions as of 05/02/2024 - albuterol (PROVENTIL) 2.5 mg /3 mL (0.083 %) nebulizer solution INHALE CONTENTS OF 1 VIAL VIA NEBULIZER 3 TIMES DAILY NEEDED FOR WHEEZING, SHORTNESS OF BREATH (INHALE OVER 5-15 MINS) - methylPREDNISolone (MEDROL, ORA,) 4 mg Dose-Pack Follow directions on pack. - mzegttutmj-welrmhxd-mi rmoterol (BREZTRI AEROSPHERE) 160-9-4.8 mcg/actuation HFA aerosol inhaler Inhale 2 Puffs as instructed twice daily. - aspirin (ASPIR-81 ORAL) Take by mouth. - albuterol HFA (PROVENTIL HFA, VENTOLIN HFA) 90 mcg/actuation inhaler Inhale 2 Puffs as instructed every 6 hours as needed. - amLODIPine (NORVASC) 5 mg tablet Take 5 mg by mouth. - atorvastatin (LIPITOR) 20 mg tablet Take 20 mg by mouth. - metFORMIN (GLUCOPHAGE) 500 mg tablet Take 2 tablets by mouth. Problem List As Of Date 05/02/2024 Noted Resolved Type 2 diabetes mellitus without complications *06/29/2020 Nicotine dependence, cigarettes, uncomplicated *11/19/2020 Chronic obstructive lung disease (HCC) [J44.9] 09/20/2022 Benign essential hypertension [I10] 09/20/2022 Hyperlipidemia [E78.5] 09/20/2022 Preoperative examination [Z01.818] 09/20/2022 Abnormal finding on lung imaging [R91.8] 09/20/2022 Lung cancer (HCC) [C34.90] 09/20/2022 Encounter Status:Closed by LADY LINDO on 05/02/24 Normal [facility] CT Chest WO contraston 05-01 IMPRESSION: 1. Stable post radiation scarring in the right upper lobe. Interval increase in right low density pleural effusion, of uncertain etiology. 2. No new or enlarging pulmonary nodules/thoracic lymphadenopathy. Transcribe Date/Time: May 01 2024 1:27P Dictated by: ANGELES GAY MD This examination was interpreted and the report reviewed and electronically signed by: ROLANDO CORDOVA MD on May 01 2024 3:33PM EST Thank you for allowing us to participate in the care of your patient. Should there be any questions regarding this interpretation, please call [phone]. If you are unable to reach us at the number above, please feel free to contact [facility] at [phone]. DIVISION OF RADIOLOGY * * *Final Report* * * DATE OF EXAM: Apr 30 2024 2:18PM [facility] 0541 - CT CHEST WO IVCON / PROCEDURE REASON: Malignant neoplasm of unspecified part of unspecified bronchus or lung (HCC) * * * * Physician Interpretation * * * * RESULT: EXAMINATION: CHEST CT WITHOUT CONTRAST CLINICAL HISTORY: 73-year-old male with right upper lobe neoplasm, status post SBRT completed on 10/18/2022. Biopsy demonstrated atypical cells, EBUS negative, PET negative for adeel and distant disease. Technique: Spiral CT acquisition of the chest from the thoracic inlet to the upper abdomen without contrast. MQ: CTCWO_6 CT Radiation dose: Integrated Dose-length product (DLP) for this visit = 362 mGy*cm CT Dose Reduction Employed: Automated exposure control (AEC) Comparison: CT chest 10/20/2023 RESULT: Limitations: None. Lines, tubes, and devices: None. Lung parenchyma and airways: Unchanged postradiation scarring with parenchymal retraction and volume loss in right upper lobe, in keeping with treated neoplasm measuring 3.2 x 3.0 cm in the AP dimension on image 60. There are additional centrilobular nodules, subpleural reticulations and associated traction bronchiectasis throughout the right upper lobe consistent with post radiation changes with an adjacent pleural effusion as described below. Upper lobe predominant centrilobular/parasept al emphysema. Mild diffuse bronchial wall thickening. Scattered sub-3 mm pulmonary nodules. No suspicious pulmonary nodule. The central airways are patent. Pleural space: Interval increase in large right-sided pleural effusion measuring near simple fluid attenuation that is loculated and tracking posteriorly from the base to the apex. No pleural thickening. Lower neck, lymph nodes, and mediastinum: The imaged thyroid gland is normal. No lymphadenopathy in the supraclavicular, axillary, mediastinal, or hilar regions. Heart, pericardium, and thoracic vessels: The thoracic aorta and main pulmonary artery are normal in caliber. Atherosclerotic calcification of the ascending aorta, aortic arch and descending aorta. The cardiac chambers are normal in size. No coronary artery atherosclerotic calcifications are noted, although the study is not optimized for coronary assessment. No pericardial effusion or thickening. Bones and soft tissues: Degenerative changes of the spine. No destructive bone lesion. Last PET scan on 09/01/2022 did not show any neoplastic hypermetabolic lesions. Upper abdomen: Splenic granulomas. Diverticulosis without diverticulitis. Localizer images: No additional findings. DIVISION OF RADIOLOGY Provider, [facility] - 05/01/2024 * * *Final Report* * * DATE OF EXAM: Apr 30 2024 2:18PM [facility] 0541 - CT CHEST WO IVCON / PROCEDURE REASON: Malignant neoplasm of unspecified part of unspecified bronchus or lung (HCC) * * * * Physician Interpretation * * * * RESULT: EXAMINATION: CHEST CT WITHOUT CONTRAST CLINICAL HISTORY: 73-year-old male with right upper lobe neoplasm, status post SBRT completed on 10/18/2022. Biopsy demonstrated atypical cells, EBUS negative, PET negative for adeel and distant disease. Technique: Spiral CT acquisition of the chest from the thoracic inlet to the upper abdomen without contrast. MQ: CTCWO_6 CT Radiation dose: Integrated Dose-length product (DLP) for this visit = 362 mGy*cm CT Dose Reduction Employed: Automated exposure control (AEC) Comparison: CT chest 10/20/2023 RESULT: Limitations: None. Lines, tubes, and devices: None. Lung parenchyma and airways: Unchanged postradiation scarring with parenchymal retraction and volume loss in right upper lobe, in keeping with treated neoplasm measuring 3.2 x 3.0 cm in the AP dimension on image 60. There are additional centrilobular nodules, subpleural reticulations and associated traction bronchiectasis throughout the right upper lobe consistent with post radiation changes with an adjacent pleural effusion as described below. Upper lobe predominant centrilobular/parasept al emphysema. Mild diffuse bronchial wall thickening. Scattered sub-3 mm pulmonary nodules. No suspicious pulmonary nodule. The central airways are patent. Pleural space: Interval increase in large right-sided pleural effusion measuring near simple fluid attenuation that is loculated and tracking posteriorly from the base to the apex. No pleural thickening. Lower neck, lymph nodes, and mediastinum: The imaged thyroid gland is normal. No lymphadenopathy in the supraclavicular, axillary, mediastinal, or hilar regions. Heart, pericardium, and thoracic vessels: The thoracic aorta and main pulmonary artery are normal in caliber. Atherosclerotic calcification of the ascending aorta, aortic arch and descending aorta. The cardiac chambers are normal in size. No coronary artery atherosclerotic calcifications are noted, although the study is not optimized for coronary assessment. No pericardial effusion or thickening. Bones and soft tissues: Degenerative changes of the spine. No destructive bone lesion. Last PET scan on 09/01/2022 did not show any neoplastic hypermetabolic lesions. Upper abdomen: Splenic granulomas. Diverticulosis without diverticulitis. Localizer images: No additional findings. IMPRESSION IMPRESSION: 1. Stable post radiation scarring in the right upper lobe. Interval increase in right low density pleural effusion, of uncertain etiology. 2. No new or enlarging pulmonary nodules/thoracic lymphadenopathy. Transcribe Date/Time: May 01 2024 1:27P Dictated by: ANGELES GAY MD This examination was interpreted and the report reviewed and electronically signed by: ROLANDO CORDOVA MD on May 01 2024 3:33PM EST Thank you for allowing us to participate in the care of your patient. Should there be any questions regarding this interpretation, please call [phone]. If you are unable to reach us at the number above, please feel free to contact [facility] at [phone]. [facility] Chest WO contrastOrdered By: Ccf Provider on 05-01-[address] [facility] [address] CHEST WO IVCONon 04-30-20 CT CHEST WO IVCON * * *Final Report* * * DATE OF EXAM: Apr 30 2024 2:18PM [facility] 0541 - CT CHEST WO IVCON / PROCEDURE REASON: Malignant neoplasm of unspecified part of unspecified bronchus or lung (HCC) * * * * Physician Interpretation * * * * RESULT: EXAMINATION: CHEST CT WITHOUT CONTRAST CLINICAL HISTORY: 73-year-old male with right upper lobe neoplasm, status post SBRT completed on 10/18/2022. Biopsy demonstrated atypical cells, EBUS negative, PET negative for adeel and distant disease. Technique: Spiral CT acquisition of the chest from the thoracic inlet to the upper abdomen without contrast. MQ: CTCWO_6 CT Radiation dose: Integrated Dose-length product (DLP) for this visit = 362 mGy*cm CT Dose Reduction Employed: Automated exposure control (AEC) Comparison: CT chest 10/20/2023 RESULT: Limitations: None. Lines, tubes, and devices: None. Lung parenchyma and airways: Unchanged postradiation scarring with parenchymal retraction and volume loss in right upper lobe, in keeping with treated neoplasm measuring 3.2 x 3.0 cm in the AP dimension on image 60. There are additional centrilobular nodules, subpleural reticulations and associated traction bronchiectasis throughout the right upper lobe consistent with post radiation changes with an adjacent pleural effusion as described below. Upper lobe predominant centrilobular/parasept al emphysema. Mild diffuse bronchial wall thickening. Scattered sub-3 mm pulmonary nodules. No suspicious pulmonary nodule. The central airways are patent. Pleural space: Interval increase in large right-sided pleural effusion measuring near simple fluid attenuation that is loculated and tracking posteriorly from the base to the apex. No pleural thickening. Lower neck, lymph nodes, and mediastinum: The imaged thyroid gland is normal. No lymphadenopathy in the supraclavicular, axillary, mediastinal, or hilar regions. Heart, pericardium, and thoracic vessels: The thoracic aorta and main pulmonary artery are normal in caliber. Atherosclerotic calcification of the ascending aorta, aortic arch and descending aorta. The cardiac chambers are normal in size. No coronary artery atherosclerotic calcifications are noted, although the study is not optimized for coronary assessment. No pericardial effusion or thickening. Bones and soft tissues: Degenerative changes of the spine. No destructive bone lesion. Last PET scan on 09/01/2022 did not show any neoplastic hypermetabolic lesions. Upper abdomen: Splenic granulomas. Diverticulosis without diverticulitis. Localizer images: No additional findings. IMPRESSION: 1. Stable post radiation scarring in the right upper lobe. Interval increase in right low density pleural effusion, of uncertain etiology. 2. No new or enlarging pulmonary nodules/thoracic lymphadenopathy. Transcribe Date/Time: May 01 2024 1:27P Dictated by: ANGELES GAY MD This examination was interpreted and the report reviewed and electronically signed by: ROLANDO CORDOVA MD on May 01 2024 3:33PM EST Thank you for allowing us to participate in the care of your patient. Should there be any questions regarding this interpretation, please call [phone]. If you are unable to reach us at the number above, please feel free to contact [facility] at [phone]. [id number] Normal [facility] CT Chest WO contraston 04-30 Radiology Study observation (narrative) [facility] Reportson 03-01-2024 Lab Reports [id number]. 00TIFF [facility] Physician Referralon 024 Physician Referral [id number]. 00TIFF [facility] Screenson 02-29-2024 Screens [id number]. 00TIFF [facility] Screens [id number] TIFF [facility] Ambulatory Visit Summaryon 0 02-28-2024 Ambulatory Visit Summary MARKEL RIGGINS :1950 Visit Date:02/28/2024 Ambulatory Visit Instructions Your Diagnosis Rising PSA level Current smoker Kidney stone Bilateral renal cysts Erectile dysfunction Family history of prostate cancer Lung cancer Your Care Team Attending Physician - Julita Jameson MD Primary Care Physician - AIDEE RAMESH CNP Referring Physician - AIDEE RAMESH CNP This Is Your Medications List Contact prescribing physician if questions or concerns atorvastatin (atorvastatin 20 mg Tab) fluticasone/umeclidini um/vilanterol (Trelegy Ellipta 100 mcg-62.5 mcg-25 mcg inhalation powder) losartan (losartan 25 mg Tab) metformin (metformin 500 mg Tab) sertraline (sertraline 100 mg Tab) Procedures Performed Cystourethroscopy (06/30/2014), Appendectomy, Cataract, Knee, Tonsillectomy. Discharge Vitals Heart Rate (Peripheral) 75 Respiratory Rate 16 Blood Pressure 127/85 Height 185 cm Height 73 in Weight 96 kg Weight 211.2 lb BMI 28.05 What to do next Scheduled Follow-Up Appointments Monday 10:45 AM EDT With: Julita Jameson MD Where: [facility] Patient Educationon 02-28-20 24 Patient Education Oncology Prostate Cancer Screening Prostate cancer screening is testing that is done to check for the presence of prostate cancer in men. The prostate gland is a walnut-sized gland that is located below the bladder and in front of the rectum in males. The function of the prostate is to add fluid to semen during ejaculation. Prostate cancer is one of the most common types of cancer in men. Who should have prostate cancer screening? Screening recommendations vary based on age and other risk factors, as well as between the professional organizations who make the recommendations. In general, screening is recommended if: ? You are age 50 to 70 and have an average risk for prostate cancer. You should talk with your health care provider about your need for screening and how often screening should be done. Because most prostate cancers are slow growing and will not cause , screening in this age group is generally reserved for men who have a 10- to 15-year life expectancy. ? You are younger than age 50, and you have these risk factors: ? Having a father, brother, or uncle who has been diagnosed with prostate cancer. The risk is higher if your family member's cancer occurred at an early age or if you have multiple family members with prostate cancer at an early age. ? Being a male who is Black or is of [place] or sub-Saharan descent. In general, screening is not recommended if: ? You are younger than age 40. ? You are between the ages of 40 and 49 and you have no risk factors. ? You are 70 years of age or older. At this age, the risks that screening can cause are greater than the benefits that it may provide. If you are at high risk for prostate cancer, your health care provider may recommend that you have screenings more often or that you start screening at a younger age. How is screening for prostate cancer done? The recommended prostate cancer screening test is a blood test called the prostate-specific antigen (PSA) test. PSA is a protein that is made in the prostate. As you age, your prostate naturally produces more PSA. Abnormally high PSA levels may be caused by: ? Prostate cancer. ? An enlarged prostate that is not caused by cancer (benign prostatic hyperplasia, or BPH). This condition is very common in older men. ? A prostate gland infection (prostatitis) or urinary tract infection. ? Certain medicines such as male hormones (like testosterone) or other medicines that raise testosterone levels. A rectal exam may be done as part of prostate cancer screening to help provide information about the size of your prostate gland. When a rectal exam is performed, it should be done after the PSA level is drawn to avoid any effect on the results. Depending on the PSA results, you may need more tests, such as: ? A physical exam to check the size of your prostate gland, if not done as part of screening. ? Blood and imaging tests. ? A procedure to remove tissue samples from your prostate gland for testing (biopsy). This is the only way to know for certain if you have prostate cancer. What are the benefits of prostate cancer screening? ? Screening can help to identify cancer at an early stage, before symptoms start and when the cancer can be treated more easily. ? There is a small chance that screening may lower your risk of dying from prostate cancer. The chance is small because prostate cancer is a slow-growing cancer, and most men with prostate cancer from a different cause. What are the risks of prostate cancer screening? The main risk of prostate cancer screening is diagnosing and treating prostate cancer that would never have caused any symptoms or problems. This is called overdiagnosisand overtreatment. PSA screening cannot tell you if your PSA is high due to cancer or a different cause. A prostate biopsy is the only procedure to diagnose prostate cancer. Even the results of a biopsy may not tell you if your cancer needs to be treated. Slow-growing prostate cancer may not need any treatment other than monitoring, so diagnosing and treating it may cause unnecessary stress or other side effects. Questions to ask your health care provider ? When should I start prostate cancer screening? ? What is my risk for prostate cancer? ? How often do I need screening? ? What type of screening tests do I need? ? How do I get my test results? ? What do my results mean? ? Do I need treatment? Where to find more information ? The [place] [employer]: www.cancer.org ? [place] [employer]: www.auanet.org Contact a health care provider if: ? You have difficulty urinating. ? You have pain when you urinate or ejaculate. ? You have blood in your urine or semen. ? You have pain in your back or in the area of your prostate. Summary ? Prostate cancer is a common type of cancer in men. The prostate gland is located below the bladder and in front of the rectum. This gland adds flu (more content not included)... Normal [facility] CT CHEST WO IVCONon 10-20-19 CT CHEST WO IVCON * * *Final Report* * * DATE OF EXAM: Oct 20 2023 8:29AM [facility] 0541 - CT CHEST WO IVCON / PROCEDURE REASON: Malignant neoplasm of unspecified part of unspecified bronchus or lung (HCC) * * * * Physician Interpretation * * * * RESULT: EXAMINATION: CHEST CT WITHOUT CONTRAST CLINICAL HISTORY: 73-year-old male with right upper lobe neoplasm (biopsy is not diagnostic), status post SBRT completed on 10/18/2022. Technique: Spiral CT acquisition of the chest from the thoracic inlet to the upper abdomen without contrast. MQ: CTCWO_6 CT Radiation dose: Integrated Dose-length product (DLP) for this visit = 434 mGy*cm CT Dose Reduction Employed: Automated exposure control (AEC) Comparison: Prior chest CTs with most recent dated 01/19/2023 RESULT: Limitations: Respiratory motion artifacts. Lines, tubes, and devices: None. 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 Interval development of a low-density indeterminate medium-size RIGHT pleural effusion. There are a few additional small lung nodule, stable. For reference, a 3 mm left apical nodule on image 42, a 2 mm left upper lobe nodule on image 57. Interval resolution of right lower lobe centrilobular tree-in-bud opacities, likely infectious in etiology. Upper lung predominant mild centrilobular and paraseptal emphysema. Mild diffuse bronchial wall thickening. Minimal secretions in the trachea. Lower neck, lymph nodes, and mediastinum: The imaged thyroid gland is normal. Stable mediastinal and right hilar calcified lymph nodes. No new or enlarging lymphadenopathy in the supraclavicular, axillary, mediastinal, or hilar regions. The esophagus is not dilated. Heart, pericardium, and thoracic vessels: The thoracic aorta and main pulmonary artery are normal in caliber. Mild atherosclerotic calcifications in the thoracic aorta and aortic root. The cardiac chambers are normal in size. Scattered three-vessel coronary artery atherosclerotic calcifications are noted, although the study is not optimized for coronary assessment. No pericardial effusion or thickening. Bones and soft tissues: No destructive bone lesion. Severe degenerative changes of the thoracic spine. Diffuse osteopenia. Small intramuscular lipoma in the right teres minor muscle. Bilateral small gynecomastia. Upper abdomen: No acute abnormality in the imaged upper abdomen. Parts Consultant (topogram) images: No additional findings. IMPRESSION: 1. Evolving post radiation fibrotic changes in the RIGHT upper lobe. New low-density medium sized RIGHT pleural effusion, of uncertain etiology. 2. Interval resolution of previously noted bronchiolitis in the RIGHT lower lobe. Few small nodules in the LEFT lung are stable since the prior exam. No new or enlarging pulmonary nodules are noted. 3. No thoracic lymphadenopathy. Transcribe Date/Time: Oct 20 2023 1:09P Dictated by: DEVON TOURE MD This examination was interpreted and the report reviewed and electronically signed by: HEIDE MALONE MD on Oct 20 2023 4:30PM EST Thank you for allowing us to participate in the care of your patient. Should there be any questions regarding this interpretation, please call [phone]. If you are unable to reach us at the number above, please feel free to contact [facility] at [phone]. [id number] Normal [facility] CT Chest WO contraston 10-20 IMPRESSION: 1. Evolving post radiation fibrotic changes in the RIGHT upper lobe. New low-density medium sized RIGHT pleural effusion, of uncertain etiology. 2. Interval resolution of previously noted bronchiolitis in the RIGHT lower lobe. Few small nodules in the LEFT lung are stable since the prior exam. No new or enlarging pulmonary nodules are noted. 3. No thoracic lymphadenopathy. Transcribe Date/Time: Oct 20 2023 1:09P Dictated by: DEVON TOURE MD This examination was interpreted and the report reviewed and electronically signed by: HEIDE MALONE MD on Oct 20 2023 4:30PM EST Thank you for allowing us to participate in the care of your patient. Should there be any questions regarding this interpretation, please call [phone]. If you are unable to reach us at the number above, please feel free to contact [facility] at [phone]. DIVISION OF RADIOLOGY * * *Final Report* * * DATE OF EXAM: Oct 20 2023 8:29AM [facility] 0541 - CT CHEST WO IVCON / PROCEDURE REASON: Malignant neoplasm of unspecified part of unspecified bronchus or lung (HCC) * * * * Physician Interpretation * * * * RESULT: EXAMINATION: CHEST CT WITHOUT CONTRAST CLINICAL HISTORY: 73-year-old male with right upper lobe neoplasm (biopsy is not diagnostic), status post SBRT completed on 10/18/2022. Technique: Spiral CT acquisition of the chest from the thoracic inlet to the upper abdomen without contrast. MQ: CTCWO_6 CT Radiation dose: Integrated Dose-length product (DLP) for this visit = 434 mGy*cm CT Dose Reduction Employed: Automated exposure control (AEC) Comparison: Prior chest CTs with most recent dated 01/19/2023 RESULT: Limitations: Respiratory motion artifacts. Lines, tubes, and devices: None. 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 Interval development of a low-density indeterminate medium-size RIGHT pleural effusion. There are a few additional small lung nodule, stable. For reference, a 3 mm left apical nodule on image 42, a 2 mm left upper lobe nodule on image 57. Interval resolution of right lower lobe centrilobular tree-in-bud opacities, likely infectious in etiology. Upper lung predominant mild centrilobular and paraseptal emphysema. Mild diffuse bronchial wall thickening. Minimal secretions in the trachea. Lower neck, lymph nodes, and mediastinum: The imaged thyroid gland is normal. Stable mediastinal and right hilar calcified lymph nodes. No new or enlarging lymphadenopathy in the supraclavicular, axillary, mediastinal, or hilar regions. The esophagus is not dilated. Heart, pericardium, and thoracic vessels: The thoracic aorta and main pulmonary artery are normal in caliber. Mild atherosclerotic calcifications in the thoracic aorta and aortic root. The cardiac chambers are normal in size. Scattered three-vessel coronary artery atherosclerotic calcifications are noted, although the study is not optimized for coronary assessment. No pericardial effusion or thickening. Bones and soft tissues: No destructive bone lesion. Severe degenerative changes of the thoracic spine. Diffuse osteopenia. Small intramuscular lipoma in the right teres minor muscle. Bilateral small gynecomastia. Upper abdomen: No acute abnormality in the imaged upper abdomen. Parts Consultant (topogram) images: No additional findings. DIVISION OF RADIOLOGY [facility] * * *Final Report* * * DATE OF EXAM: Oct 20 2023 8:29AM [facility] 0541 - CT CHEST WO IVCON / PROCEDURE REASON: Malignant neoplasm of unspecified part of unspecified bronchus or lung (HCC) * * * * Physician Interpretation * * * * RESULT: EXAMINATION: CHEST CT WITHOUT CONTRAST CLINICAL HISTORY: 73-year-old male with right upper lobe neoplasm (biopsy is not diagnostic), status post SBRT completed on 10/18/2022. Technique: Spiral CT acquisition of the chest from the thoracic inlet to the upper abdomen without contrast. MQ: CTCWO_6 CT Radiation dose: Integrated Dose-length product (DLP) for this visit = 434 mGy*cm CT Dose Reduction Employed: Automated exposure control (AEC) Comparison: Prior chest CTs with most recent dated 01/19/2023 RESULT: Limitations: Respiratory motion artifacts. Lines, tubes, and devices: None. 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 Interval development of a low-density indeterminate medium-size RIGHT pleural effusion. There are a few additional small lung nodule, stable. For reference, a 3 mm left apical nodule on image 42, a 2 mm left upper lobe nodule on image 57. Interval resolution of right lower lobe centrilobular tree-in-bud opacities, likely infectious in etiology. Upper lung predominant mild centrilobular and paraseptal emphysema. Mild diffuse bronchial wall thickening. Minimal secretions in the trachea. Lower neck, lymph nodes, and mediastinum: The imaged thyroid gland is normal. Stable mediastinal and right hilar calcified lymph nodes. No new or enlarging lymphadenopathy in the supraclavicular, axillary, mediastinal, or hilar regions. The esophagus is not dilated. Heart, pericardium, and thoracic vessels: The thoracic aorta and main pulmonary artery are normal in caliber. Mild atherosclerotic calcifications in the thoracic aorta and aortic root. The cardiac chambers are normal in size. Scattered three-vessel coronary artery atherosclerotic calcifications are noted, although the study is not optimized for coronary assessment. No pericardial effusion or thickening. Bones and soft tissues: No destructive bone lesion. Severe degenerative changes of the thoracic spine. Diffuse osteopenia. Small intramuscular lipoma in the right teres minor muscle. Bilateral small gynecomastia. Upper abdomen: No acute abnormality in the imaged upper abdomen. Parts Consultant (topogram) images: No additional findings. IMPRESSION IMPRESSION: 1. Evolving post radiation fibrotic changes in the RIGHT upper lobe. New low-density medium sized RIGHT pleural effusion, of uncertain etiology. 2. Interval resolution of previously noted bronchiolitis in the RIGHT lower lobe. Few small nodules in the LEFT lung are stable since the prior exam. No new or enlarging pulmonary nodules are noted. 3. No thoracic lymphadenopathy. Transcribe Date/Time: Oct 20 2023 1:09P Dictated by: DEVON TOURE MD This examination was interpreted and the report reviewed and electronically signed by: HEIDE MALONE MD on Oct 20 2023 4:30PM EST Thank you for allowing us to participate in the care of your patient. Should there be any questions regarding this interpretation, please call [phone]. If you are unable to reach us at the number above, please feel free to contact [facility] at [phone]. [facility] Study observation (narrative) [facility] CT Chest WO contrastOrdered By: Ccf Provider on 10-20-[address] [facility] [address] CHEST WO IVCONon 01-20-20 [facility] PSA, FREE AND TOTAL RATIOon 10-04-2022 % Free PSA 21.3 % Normal [facility] Comment on above: Result Comment: The table below lists the probability of prostate cancer for men with non-suspicious RICK results and total PSA between 4 and 10 ng/mL, by patient age (Gamal et al, WEN 1998, 279:1542). % Free PSA 50-64 yr 65-75 yr 0.00-10.00% 56% 55% 10.01-15.00% 24% 35% 15.01-20.00% 17% 23% 20.01-25.00% 10% 20% >25.00% 5% 9% Please note: Gamal et al did not make specific recommendations regarding the use of percent free PSA for any other population of men. Performed By: #### P SAFREE #### [facility] [address] [place] [address] Dr. Dallas Crawley Prostate specific Ag [Mass/Vol] 2.4 ng/mL Normal 0.0-4.0 [facility] Comment on above: Result Comment: Ruby michaels ECLIA methodology. . According to the [place] [employer], Serum PSA should decrease and remain at undetectable levels after radical prostatectomy. The AUA defines biochemical recurrence as an initial PSA value 0.2 ng/mL or greater followed by a subsequent confirmatory PSA value 0.2 ng/mL or greater. Values obtained with different assay methods or kits cannot be used interchangeably. Results cannot be interpreted as absolute evidence of the presence or absence of malignant disease. Performed By: #### P SAFREE #### [facility] [address] [place] [address] Dr. Dallas Crawley PSA, Free 0.51 ng/mL Normal N/A [facility] Comment on above: Result Comment: Ruby michaels ECLIA methodology. Performed By: #### P SAFREE #### [facility] [address] [place] [address] Dr. Dallas Crawley CBC AUTO DIFFon 10-03-2022 BASO # 0.1 103/ul Normal 0.0-0.1 [facility] Comment on above: Performed By: #### C BC #### [facility] [address] [place] [address] Dr. Dallas Crawley Basophils/100 WBC (Bld) 1.3 % Normal 0.2-2.0 [facility] Comment on above: Performed By: #### C BC #### [facility] [address] [place] [address] Dr. Dallas Crawley EO # 0.4 103/ul Normal 0.0-0.7 [facility] Comment on above: Performed By: #### C BC #### [facility] [address] [place] [address] Dr. Dallas Crawley Eosinophils/100 WBC (Bld) 3.8 % Normal 0.9-7.0 [facility] Comment on above: Performed By: #### C BC #### [facility] [address] [place] [address] Dr. Dlalas Crawley Erythrocyte distribution width (RBC) [Ratio] 13.4 % Normal 11.0-15.0 [facility] Comment on above: Performed By: #### C BC #### [facility] [address] [address] [address] Dallas Crawley Hematocrit (Bld) [Volume fraction] 46.7 % Normal 42.0-54.0 [facility] Comment on above: Performed By: #### C BC #### [facility] [address] [place] [address] Dr. Dallas Crawley Hemoglobin (Bld) [Mass/Vol] 14.8 g/dL Normal 14.0-18.0 [facility] Comment on above: Performed By: #### C BC #### [facility] [address] [place] [address] Dr. Dallas Crawley IG # 0.03 10e3/ul Normal 0.00-0.03 [facility] Comment on above: Performed By: #### C BC #### [facility] [address] [place] [address] Dr. Dallas Crawley IG % 0.3 % Normal 0.0-0.5 [facility] Comment on above: Performed By: #### C BC #### [facility] [address] [place] [address] Dr. Dallas Crawley LYMPH # 3.3 103/ul Normal 1.2-3.8 [facility] Comment on above: Performed By: #### C BC #### [facility] [address] [place] [address] Dr. Dallas Crawley Lymphocytes/100 WBC (Bld) 33.3 % Normal 20.5-60.0 [facility] Comment on above: Performed By: #### C BC #### [facility] [address] [place] [address] Dr. Dallas Crawley MANUAL DIFF REQ NO Normal [facility] Comment on above: Performed By: #### C BC #### [facility] [address] [place] [address] Dr. Dallas Crawley MCH (RBC) [Entitic mass] 29.4 pg Normal 25.9-34.0 [facility] Comment on above: Performed By: #### C BC #### [facility] [address] [id number] Dallas Crawley MCHC (RBC) [Mass/Vol] 31.7 g/dL Normal 29.9-35.2 [facility] Comment on above: Performed By: #### C BC #### [facility] [address] [id number] Dallas Crawley MCV (RBC) [Entitic vol] 92.7 fL Normal 80.0-94.0 [facility] Comment on above: Performed By: #### C BC #### [facility] [address] [address] [address] Dallas Crawley MONO # 0.8 103/ul Normal 0.3-0.8 [facility] Comment on above: Performed By: #### C BC #### [facility] [address] [place] [address] Dr. Dallas Crawley Monocytes/100 WBC (Bld) 8.2 % Normal 1.7-12.0 [facility] Comment on above: Performed By: #### C BC #### [facility] [address] [place] [address] Dr. Dallas Crawley NEUT # 5.3 103/ul Normal 1.4-6.5 [facility] Comment on above: Performed By: #### C BC #### [facility] [address] [place] [address] Dr. Dallas Crawley Neutrophils/100 WBC (Bld) 53.1 % Normal 43.0-75.0 [facility] Comment on above: Performed By: #### C BC #### [facility] [address] [place], [place] [id number] Dr. Dallas Crawley Platelet mean volume (Bld) [Entitic vol] 10.1 fL Normal 9.5-13.5 [facility] Comment on above: Performed By: #### C BC #### [facility] [address] [place] [address] Dr. Dallas Crawley PLT 196 103/ul Normal 150-450 [facility] Comment on above: Performed By: #### C BC #### [facility] [address] [address] [address] Dallas Crawley RBC 5.04 106/ul Normal 4.70-6.10 [facility] Comment on above: Performed By: #### C BC #### [facility] [address] [place] [address] Dr. Dallas Crawley WBC 9.9 103/ul Normal 4.0-11.0 [facility] Comment on above: Performed By: #### C BC #### [facility] [address] [place] [address] Dr. Dallas Crawley GLYCOHEMOGLOBIN A1Con 2022 ADA RECOMMENDATION SEE BELOW Normal [facility] Comment on above: Result Comment: ADA RECOMMENDED LIMIT 4.0 - 6.0 ADA THERAPEUTIC TARGET < 7.0 ACTION SUGGESTED > 7.0 Performed By: #### A 1C #### [facility] [address] [place] [address] Dr. Dallas Crawley Glucose [Mass/Vol] 146 mg/dL Normal [facility] Comment on above: Performed By: #### A 1C #### [facility] [address] [place] [address] Dr. Dallas Crawley HbA1c (Bld) [Mass fraction] 6.7 % Critically high 4.5-6.2 [facility] Comment on above: Performed By: #### A 1C #### [facility] [address] [place] [address] Dr. Dallas Crawley LIPID PROFILEon 10-03-2022 CHOL-HDL RATIO NORM SEE BELOW Normal [facility] Comment on above: Result Comment: 3.3 - 4.4 LOW RISK 4.4 - 7.1 AVERAGE RISK 7.1 - 11.0 MODERATE RISK >11.0 HIGH RISK Performed By: #### L IPID, CMP #### [facility] [address] [place] [address] Dr. Dallas Crawley Cholesterol [Mass/Vol] 137 mg/dL Normal <=200 [facility] Comment on above: Performed By: #### L IPID, CMP #### [facility] [address] [place] [address] Dr. Dallas Crawley Cholesterol in HDL [Mass/Vol] 43 mg/dL Normal 40-60 [facility] Comment on above: Performed By: #### L IPID, CMP #### [facility] [address] [address] [address] Dallas Crawley Cholesterol in LDL [Mass/Vol] 71.0 mg/dL Normal [facility] Comment on above: Performed By: #### L IPID, CMP #### [facility] [address] [place] [address] Dr. Dallas Crawley Cholesterol.total/C holesterol in HDL [Mass ratio] 3.2 {ratio} Normal [facility] Comment on above: Performed By: #### L IPID, CMP #### [facility] [address] [place] [address] Dr. Dallas Crawley HDL NORMAL > or = 60 mg/dl - LO W CARDIOVASCULAR RISK <40 mg/dl - HIGH CARDIOVASCULAR RISK Normal [facility] Comment on above: Performed By: #### L IPID, CMP #### [facility] [address] [place] [address] Dr. Dallas Crawley LDL CALC NORMAL SEE BELOW Normal [facility] Comment on above: Result Comment: <100 mg/dl OPTIMAL 100 - 129 mg/dl NEAR OR ABOVE OPTIMAL 130 - 159 mg/dl BORDERLINE HIGH 160 - 189 mg/dl HIGH >190 mg/dl VERY HIGH Performed By: #### L IPID, CMP #### [facility] [address] [place] [address] Dr. Dallas Crawley Triglyceride [Mass/Vol] 115 mg/dL Normal <=150 [facility] Comment on above: Performed By: #### L IPID, CMP #### [facility] [address] [place] [address] Dr. Dallas Crawley VLDL CALC 23.0 mg/dL Normal [facility] Comment on above: Performed By: #### L IPID, CMP #### [facility] [address] [place] [address] Dr. Dallas Crawley MICROALBUMIN, RAND URon 01- mALB 33.3 mg/L Critically high <=30.0 [facility] Comment on above: Performed By: #### M ALBR #### [facility] [address] [address] [address] Dallas Crawley PROF 14(COMP METB)on 023 Albumin [Mass/Vol] 3.6 g/dL Normal 3.4-5.0 [facility] Comment on above: Performed By: #### L IPID, CMP #### [facility] [address] [place] [address] Dr. Dallas Crawley Albumin/Globulin [Mass ratio] 0.8 {ratio} Normal [facility] Comment on above: Performed By: #### L IPID, CMP #### [facility] [address] [place] [address] Dr. Dallas Crawley ALP [Catalytic activity/Vol] 90 U/L Normal 46-116 [facility] Comment on above: Performed By: #### L IPID, CMP #### [facility] [address] [place] [address] Dr. Dallas Crawley ALT [Catalytic activity/Vol] 27 U/L Normal 16-63 [facility] Comment on above: Performed By: #### L IPID, CMP #### [facility] [address] [place] [address] Dr. Dallas Crawley Anion gap [Moles/Vol] 12.0 mmol/L Normal [facility] Comment on above: Performed By: #### L IPID, CMP #### [facility] [address] [place] [address] Dr. Dallas Crawley AST [Catalytic activity/Vol] 20 U/L Normal 15-37 [facility] Comment on above: Performed By: #### L IPID, CMP #### [facility] [address] [address] [address] Dallas Crawley Bilirubin [Mass/Vol] 0.5 mg/dL Normal 0.2-1.0 [facility] Comment on above: Performed By: #### L IPID, CMP #### [facility] [address] [place] [address] Dr. Dallas Crawley Calcium [Mass/Vol] 9.5 mg/dL Normal 8.5-10.1 [facility] Comment on above: Performed By: #### L IPID, CMP #### [facility] [address] [place] [address] Dr. Dallas Crawley Chloride [Moles/Vol] 103 mmol/L Normal 98-107 [facility] Comment on above: Performed By: #### L IPID, CMP #### [facility] [address] [place] [address] Dr. Dallas Crawley CO2 [Moles/Vol] 31.4 mmol/L Normal 21.0-32.0 [facility] Comment on above: Performed By: #### L IPID, CMP #### [facility] [address] [place] [address] Dr. Dallas Crawley Creatinine [Mass/Vol] 0.76 mg/dL Normal 0.70-1.30 [facility] Comment on above: Performed By: #### L IPID, CMP #### [facility] [address] [place] [address] Dr. Dallas Crawley EGFR-AF JORDANIAN >60 Normal >=60 [facility] Comment on above: Performed By: #### L IPID, CMP #### [facility] [address] [place] [address] Dr. Dallas Crawley EGFR-NON AF JORDANIAN >60 Normal >=60 [facility] Comment on above: Performed By: #### L IPID, CMP #### [facility] [address] [place] [address] Dr. Dallas Crawley Globulin (S) [Mass/Vol] 4.4 g/dL Normal [facility] Comment on above: Performed By: #### L IPID, CMP #### [facility] [address] [place] [address] Dr. Dallas Crawley Glucose [Mass/Vol] 108 mg/dL Critically high 74-106 [facility] Comment on above: Performed By: #### L IPID, CMP #### [facility] [address] [place] [address] Dr. Dallas Crawley Potassium [Moles/Vol] 4.4 mmol/L Normal 3.5-5.1 [facility] Comment on above: Performed By: #### L IPID, CMP #### [facility] [address] [place] [address] Dr. Dallas Crawley Protein [Mass/Vol] 8.0 g/dL Normal 6.4-8.2 [facility] Comment on above: Performed By: #### L IPID, CMP #### [facility] [address] [place] [address] Dr. Dallas Crawley Sodium [Moles/Vol] 142 mmol/L Normal 136-145 [facility] Comment on above: Performed By: #### L IPID, CMP #### [facility] [address] [place] [address] Dr. Dallas Crawley Urea nitrogen [Mass/Vol] 14.0 mg/dL Normal 7.0-18.0 [facility] Comment on above: Performed By: #### L IPID, CMP #### [facility] [address] [place] [address] Dr. Dallas Crawley Urea nitrogen/Creatinine [Mass ratio] 18.4 mg/mg Normal [facility] Comment on above: Performed By: #### L IPID, CMP #### [facility] [address] [place] [address] Dr. Dallas Crawley UA RANDOM W/MICROSCOPICon BACTERIA NONE SEEN Normal NONE SEEN [facility] Comment on above: Performed By: #### U AMIC #### [facility] [address] [place] [address] Dr. Dallas Crawley Bilirubin Ql (U) Negative Normal NEGATIVE [facility] Comment on above: Performed By: #### U AMIC #### [facility] [address] [place] [address] Dr. Dallas Crawley CAST NONE SEEN Normal NONE SEEN [facility] Comment on above: Performed By: #### U AMIC #### [facility] [address] [place] [address] Dr. Dallas Crawley Clarity (U) CLEAR Normal CLEAR [facility] Comment on above: Performed By: #### U AMIC #### [facility] [address] [address] [address] Dallas Crawley Color (U) LT. YELLOW Normal YELLOW [facility] Comment on above: Performed By: #### U AMIC #### [facility] [address] [address] [address] Dallas Crawley Crystals LM Nom (Urine sed) NONE SEEN Normal NONE SEEN [facility] Comment on above: Performed By: #### U AMIC #### [facility] [address] [address] [address] Dallas Crawley Epithelial cells LM Ql (Urine sed) FEW Abnormal NONE SEEN /RARE [facility] Comment on above: Performed By: #### U AMIC #### [facility] [address] [address] [address] Dallas Crawley Glucose Ql (U) Negative Normal NEGATIVE [facility] Comment on above: Performed By: #### U AMIC #### [facility] [address] [address] [address] Dallas Crawley Hemoglobin Ql (U) TRACE-INTACT Abnormal NEGATIVE [facility] Comment on above: Performed By: #### U AMIC #### [facility] [address] [place] [address] Dr. Dallas Crawley Ketones Ql (U) Negative Normal NEGATIVE [facility] Comment on above: Performed By: #### U AMIC #### [facility] [address] [address] [address] Dallas Crawley LEUKOCYTES Negative Normal NEGATIVE [facility] Comment on above: Performed By: #### U AMIC #### [facility] [address] [address] [address] Dallas Crawley MUCOUS NONE SEEN Normal NONE SEEN [facility] Comment on above: Performed By: #### U AMIC #### [facility] [address] [address] [address] Dallas Crawley Nitrite Ql (U) Negative Normal NEGATIVE [facility] Comment on above: Performed By: #### U AMIC #### [facility] [address] [place] [address] Dr. Dallas Crawley pH (U) 6.0 [pH] Normal 5-9 [facility] Comment on above: Performed By: #### U AMIC #### [facility] [address] [place] [address] Dr. Dallas Crawley RBC 0-2 Normal 0-2 [facility] Comment on above: Performed By: #### U AMIC #### [facility] [address] [place] [address] Dr. Dallas Crawley SPEC GRAVITY 1.025 Normal 1.005-<=1.025 [facility] Comment on above: Performed By: #### U AMIC #### [facility] [address] [place] [address] Dr. Dallas Crawley UA PROTEIN 30 mg/dl Abnormal NEGATIVE/ TRACE [facility] Comment on above: Performed By: #### U AMIC #### [facility] [address] [place] [address] Dr. Dallas Crawley Urobilinogen Qn (U) 0.2 {Christiano'U}/dL Normal 0.2 - 1. 0 [facility] Comment on above: Performed By: #### U AMIC #### [facility] [address] [place] [address] Dr. Dallas Crawley WBC NONE SEEN Normal NONE SEEN [facility] Comment on above: Performed By: #### U AMIC #### [facility] [address] [place] [address] Dr. Dallas Crawley CYTOLOGY NON-GYNon 3 ADEQUACY INTERPRETATION A: #1,2: Atypical cells present #3-5: Non-diagnostic B: #1: Non-diagnostic #2,3: Lymphoid sample C: #1: Atypical cells present #2: Non-diagnostic D: #1,2: Lymphoid sample E: #1,2: Non-diagnostic Dr. Cliff Brothers/ Denisse Barlow/ Lolis Ramirez Each letter in the above intra-procedural assessment refers to a unique site. The specific site is indicated in the final diagnosis portion of the report. Each number in this assessment references a discrete evaluation episode. Intra-procedural assessment performed at [facility], [address] [place], [place] [address]. [place] [address] [facility] Case Report Medical Cytology Report Case: [id number] Authorizing Provider: Ihsan Shah MD Collected: 09/21/2022 08:37 AM Ordering Location: Admitting Received: 09/21/2022 11:49 AM Pathologist: Joelle Brothers MD Specimens: A) - TRANSBRONCHIAL FINE-NEEDLE ASPIRATION, RIGHT UPPER LOBE APICAL NODULE B) - EBUS TRANSBRONCHIAL FINE-NEEDLE ASPIRATION, 4L C) - BRONCHIAL BRUSHING, RIGHT UPPER LOBE APICAL NODULE D) - EBUS TRANSBRONCHIAL FINE-NEEDLE ASPIRATION, 4R E) - BRONCHIAL BRUSHING, RIGHT UPPER LOBE APICAL NODULE, TRIPLE NEEDLE BRUSH [facility] Clinical History Right upper lobe nodules, smoker, prior lung carcinoma right upper lobe s/p radiation therapy [facility] Diagnosis Comment Rare atypical cells are seen in all three samples from the right upper lobe apical nodule (parts A, C, and E), in a background of alveolar macrophages and histocytes. The cells have abundant cytoplasm, large nuclei, prominent nucleoli, and frequent multinucleation. The patient's prior history of clinically diagnosed lung carcinoma treated with radiation therapy is noted. The significance of these atypical cells is uncertain; too few cells are present for further evaluation. This case was reviewed at the cytology consensus conference, and Drs. Yusuf and Osman agree with the diagnosis. [facility] FINAL DIAGNOSIS A - TRANSBRONCHIAL FINE-NEEDLE ASPIRATION - RIGHT UPPER LOBE APICAL NODULE Rare atypical cells present, not otherwise diagnostic. (See comment.) B - EBUS TRANSBRONCHIAL FINE-NEEDLE ASPIRATION - 4L Negative for malignant cells. Benign lymphoid sample. C - BRONCHIAL BRUSHING - RIGHT UPPER LOBE APICAL NODULE Rare atypical cells present, not otherwise diagnostic. (See comment.) D - EBUS TRANSBRONCHIAL FINE-NEEDLE ASPIRATION - 4R Negative for malignant cells. Benign lymphoid sample. E - BRONCHIAL BRUSHING - RIGHT UPPER LOBE APICAL NODULE, TRIPLE NEEDLE BRUSH Rare atypical cells present, not otherwise diagnostic. (See comment.) The following cell blocks were associated with this case: A1 Cell Block, Alcohol Fixed B1 Cell Block, Alcohol Fixed C1 Cell Block, Alcohol Fixed D1 Cell Block, Alcohol Fixed E1 Cell Block, Alcohol Fixed [facility] Gross Description A. TRANSBRONCHIAL FINE-NEEDLE ASPIRATION 30 cc clear red CytoLyt with particles. ThinPrep and Cell Block prepared and 10 smears (5 air dried and 5 fixed). [facility] ORDER COMMENT Pre-op diagnosis: Bronchiolar disease [J98.09] [facility] Performing Lab Technical component, voice professor screening [facility] [address] [facility] [address] CLIA# [id number] Diagnostic interpretation performed at [facility], [address] [facility] [address] CLIA# [id number] Commercial Account Officer: Hiram Parsons M.D. [facility] BRONCHOSCOPYon 09-21-[address] [facility] [address] CHEST WO IVCONon 09-20-[address] [facility] [address] CHEST WO IVCONon 08-12-[address] [facility] [address] CHEST WO IVCONon 05-17-20 22 [facility] GLYCOHEMOGLOBIN A1Con 2021 ADA RECOMMENDATION SEE BELOW Normal [facility] Comment on above: Result Comment: ADA RECOMMENDED LIMIT 4.0 - 6.0 ADA THERAPEUTIC TARGET < 7.0 ACTION SUGGESTED > 7.0 Performed By: #### A 1C #### [facility] [address] [address] [address] Dallas Crawley Glucose [Mass/Vol] 146 mg/dL Normal [facility] Comment on above: Performed By: #### A 1C #### [facility] [address] [address] [address] Dallas Crawley HbA1c (Bld) [Mass fraction] 6.7 % Critically high 4.5-6.2 [facility] Comment on above: Performed By: #### A 1C #### [facility] [address] [address] [address] Dallas Crawley PROF CHEM 8 (BAS METB)on Anion gap [Moles/Vol] 11.2 mmol/L Normal [facility] Comment on above: Performed By: #### B MP #### [facility] [address] [address] [address] Dallas Crawley Calcium [Mass/Vol] 9.3 mg/dL Normal 8.5-10.1 [facility] Comment on above: Performed By: #### B MP #### [facility] [address] [place] [address] Dr. Dallas Crawley Chloride [Moles/Vol] 102 mmol/L Normal 98-107 [facility] Comment on above: Performed By: #### B MP #### [facility] [address] [address] [address] Dallas Crawley CO2 [Moles/Vol] 31.3 mmol/L Normal 21.0-32.0 [facility] Comment on above: Performed By: #### B MP #### [facility] [address] [address] [address] Dallas Crawley Creatinine [Mass/Vol] 1.12 mg/dL Normal 0.70-1.30 [facility] Comment on above: Performed By: #### B MP #### [facility] [address] [address] [address] Dallas Crawley EGFR-AF JORDANIAN >60 Normal >=60 [facility] Comment on above: Performed By: #### B MP #### [facility] [address] [address] [address] Dallas Crawley EGFR-NON AF JORDANIAN >60 Normal >=60 [facility] Comment on above: Performed By: #### B MP #### [facility] [address] [address] [address] Dallas Crawley Glucose [Mass/Vol] 104 mg/dL Normal 74-106 [facility] Comment on above: Performed By: #### B MP #### [facility] [address] [address] [address] Dallas Crawley Potassium [Moles/Vol] 4.5 mmol/L Normal 3.5-5.1 [facility] Comment on above: Performed By: #### B MP #### [facility] [address] [address] [address] Dallas Crawley Sodium [Moles/Vol] 140 mmol/L Normal 136-145 [facility] Comment on above: Performed By: #### B MP #### [facility] [address] [address] [address] Dallas Crawley Urea nitrogen [Mass/Vol] 16.0 mg/dL Normal 7.0-18.0 [facility] Comment on above: Performed By: #### B MP #### [facility] [address] [place], [place] [address] Dr. Dallas Crawley Urea nitrogen/Creatinine [Mass ratio] 14.3 mg/mg Normal [facility] Comment on above: Performed By: #### B MP #### [facility] [address] [place], [place] [address] Dr. Dallas Crawley SIX MINUTE WALKon 12-24-2021 [facility] Glucose Poct Glucometerson 1 10-25-2020 Commemt1 Glu2: Cleaned Meter Normal [facility] Comment on above: Result Comment: PERF ORMED BY: [facility] [address] [place] [place] [address] PATHOLOGIST P[employer] LINE MAINTENANCE SUPERVISOR JACK OREILLY M.D. Performed By: #### G LULS #### Point of Care testing , Glucose [Mass/Vol] 120 mg/dL Normal [facility] Comment on above: Result Comment: [facility] Glucose Reference Range is dependent on time and content of last meal. Glucose of more than 200 mg/dL in a nonstressed, ambulatory subject supports the diagnosis of Diabetes Mellitus. Performed By: #### G LULS #### Point of Care testing , Histoplasma Galacto Ag EIAon 12-23-2020 Disclaimer: Normal . [facility] Comment on above: Order Comment: Reaso n for Exam Lung nodule Result Comment: This test was developed and its performance characteristics determined by [facility]. It has not been cleared or approved by the Food and Drug Administration. Performed at: [facility] [address] [id number] Tire Spotter: Alvarado Pierre MD, Phone: [phone] PERFORMED BY: [facility] [address] [place] [address] PATHOLOGIST [employer] MAINTENANCE SUPERVISOR JACK OREILLY M.D. Performed By: #### H ISTOPL GAL AG #### [facility] , Histoplasma Gal'millan Ag, Ser <0.5 Normal <0.5 ng/mL [facility] Comment on above: Order Comment: Reaso n for Exam Lung nodule Performed By: #### H ISTOPL GAL AG #### [facility] , Histoplasma Galacto Ag, Uron 12-22-2020 Histoplasma disclaimer Normal . [facility] Comment on above: Order Comment: Reaso n for Exam Lung nodule Result Comment: This test was developed and its performance characteristics determined by [facility]. It has not been cleared or approved by the Food and Drug Administration. Performed at: [address] [id number] Tire Spotter: Alvarado Pierre MD, Phone: [phone] PERFORMED BY: [facility] [address] [place] [address] PATHOLOGIST P[employer] LINE MAINTENANCE SUPERVISOR JACK OREILLY M.D. Performed By: #### Q UANT TB, UR HISTOPLAS #### [facility] , Histoplasma GALACTOMANNAN, UR <0.5 Normal <0.5 ng/mL [facility] Comment on above: Order Comment: Reaso n for Exam Lung nodule Performed By: #### Q UANT TB, UR HISTOPLAS #### [facility] , QuantiFERON TB Goldon 2020 QFTB Criteria Normal . [facility] Comment on above: Order Comment: Reaso n for Exam Lung nodule Result Comment: The QuantiFERON-TB Gold Plus result is determined by subtracting the Nil value from either TB antigen (Ag) tube. The mitogen tube serves as a control for the test. Performed By: #### Q UANT TB, UR HISTOPLAS #### [facility] , Quant TB Ag Value 2.20 Normal . [facility] Comment on above: Order Comment: Reaso n for Exam Lung nodule Performed By: #### Q UANT TB, UR HISTOPLAS #### [facility] , Quant TB Gold Plus Positive Critically abnormal Negative [facility] Comment on above: Order Comment: Reaso n for Exam Lung nodule Result Comment: The specimen received for QuantiFERON testing was incubated by the ordering institution. Specific procedures outlined in our Directory of Services and in the package insert for the QuantiFERON Gold (In Tube) test must be followed to enable for proper stimulation of cells for the production of interferon gamma. Chemiluminescence immunoassay methodology Performed at: [facility] [address] [id number] Tire Spotter: Deep Wilson PhD, Phone: [phone] PERFORMED BY: [place] [address] PATHOLOGIST PIPE LINE MAINTENANCE SUPERVISOR JACK OREILLY M.D. Performed By: #### Q UANT TB, UR HISTOPLAS #### [facility] , Quant TB2 Ag Value 1.94 Normal . [facility] Comment on above: Order Comment: Reaso n for Exam Lung nodule Performed By: #### Q UANT TB, UR HISTOPLAS #### [facility] , Quantiferon Nil Value 0.04 Normal . [facility] Comment on above: Order Comment: Reaso n for Exam Lung nodule Performed By: #### Q UANT TB, UR HISTOPLAS #### [facility] , Quantiferon TB Mitogen >10.00 Normal . [facility] Comment on above: Order Comment: Reaso n for Exam Lung nodule Performed By: #### Q UANT TB, UR HISTOPLAS #### [facility] , Glucose Poct Glucometerson 0 12-02-2020 Glucose [Mass/Vol] 133 mg/dL Normal [facility] Comment on above: Result Comment: [facility] Glucose Reference Range is dependent on time and content of last meal. Glucose of more than 200 mg/dL in a nonstressed, ambulatory subject supports the diagnosis of Diabetes Mellitus. PERFORMED BY: [place] [address] PATHOLOGIST PIPE LINE MAINTENANCE SUPERVISOR JACK OREILLY M.D. Performed By: #### G LULS #### Point of Care testing , PET tumor init tx strat sb-m ton 12-02-2020 PET tumor init tx strat sb-mt [facility] [place] [address] Nuclear Medicine Report Signed Patient: Markel Riggins MR#: [id number] : 1950 Acct:[id number] Age/Sex: 70 / M ADM Date: 12/02/20 Loc: Room: Type: [facility] Attending Dr: Aidee Ramesh Ordering Provider: Aidee Ramesh Date of Service: 12/02/20 PET/PET tumor init tx strat sb-mt: R91.8 Copies to: Bobby Bradford Jr, MD Whole body PET-CT 12/02/2020. CLINICAL DATA: Right upper lobe lung nodule. TECHNIQUE: Nondiagnostic CT of the whole body was performed for anatomic localization and attenuation correction. Positron emission tomography (PET) of the whole body was then performed 1 hour after the intravenous administration of 11.2 mCi of F-18 Fluorodeoxyglucose (FDG). The CT and PET data sets were fused. The blood glucose level at the time of injection was 133 mg/dl. COMPARISON: CT chest 11/19/2020 ([facility]). FINDINGS: There is a small irregular nodular density demonstrating hypermetabolic activity consistent with malignancy in the upper lobe of the right lung (maximum SUV 6.1). There are also a few mildly hypermetabolic right hilar lymph nodes (maximum SUV 3.4). No other hypermetabolic activity suspicious for malignancy is identified in the neck, chest, abdomen, or pelvis. Intestinal activity is presumably physiologic. There is physiologic activity in the urinary tract. There are findings related to a history of granulomatous disease. There is right nephrolithiasis. There is a right renal cyst. There are other indeterminate lesions demonstrating no hypermetabolic activity arising from both kidneys. There is colonic diverticulosis. Atherosclerotic disease is noted. PET/PET tumor init tx strat sb-mt IMPRESSION: 1. Small irregular nodular density demonstrating hypermetabolic activity consistent with malignancy in the upper lobe of the right lung. 2. Few mildly hypermetabolic right hilar lymph nodes. Impression dictated by: Bobby Taylor Jr., M.D.12/02/2020 7:20 PM Dictation Location: [place] [address] Transcribed By: [facility] 12/02/201919 Dictated By: Bobby Taylor Jr, MD 12/02/20 1437 Signed By: 12/02/201919 [facility] CT LUNG SCREENINGon 03-24-20 CT LUNG SCREENING EXAMINATION: Chest C T without contrast (Low Dose - Lung Cancer Screening)DATE: 03/24/2017.COMPARISON: None.CLINICAL HISTORY: Patient is a 66-year-old former smoker who quit less than 15 years ago with a greater than 40 pack-year smoking history.TECHNIQUE: Multiple contiguous axial images through the chest were obtained utilizing low dose protocol. Sagittal and Coronal Reformations, as well as MIP images were also provided.DFOV: 380 mmCTDIvol: 2.48 mGyFINDINGS:No focal consolidation, pleural effusion or pneumothorax. No pulmonary nodules are seen. No mediastinal or hilar lymphadenopathy. Calcified mediastinal and bihilar lymph nodes. Normal cardiac size. Coronary artery atherosclerosis. Nonaneurysmal thoracic aorta. Visualized upper abdomen is normal. Hypertrophic degenerative changes thoracic spine.1. Benign previous granulomatous disease2. No pulmonary nodulesMODIFIER: NoneLUNG RADS CATEGORY:Category 1: NegativeRecommendation s: Continue annual screening with low dose CT in 12 months.If you would like to register your patient with the [facility] Lung Nodule/Lung Cancer Screening Program, please contact the Nurse Navigator at [phone] inal report electronically signed by Radha Munguia on 03/24/2017 2:09 PMInterpreted by:DUKE Mcallisterigned by:Radha Munguia MD03/24/17Final result Normal [facility] Vital Signs Date Time Vital Sign Value Performing Clinician Facility 02-28-2024 09:37-0400 Blood Pressure Location Julita Jameson [facility] 02-28-2024 09:37-0400 Diastolic blood pressure 85 mm[Hg] Julita Upe [facility] 02-28-2024 09:37-0400 Heart rate 75 /min Julita Jameson [facility] 02-28-2024 09:37-0400 Respiratory rate 16 /min Julita Jameson [facility] 02-28-2024 09:37-0400 Systolic blood pressure 127 mm[Hg] Juliat Lue [facility] 01-19-2023 11:10-0400 Body temperature 97.81 [degF] Jaden Whipple MD Work Phone: [facility] 01-19-2023 11:10-0400 Body weight 117.57 kg Jaden Whipple MD Work Phone: [facility] 01-19-2023 11:10-0400 Diastolic blood pressure 60 mm[Hg] Jaden Whipple MD Work Phone: [facility] 01-19-2023 11:10-0400 Heart rate 93 /min Jaden Whipple MD Work Phone: [facility] 01-19-2023 11:10-0400 Respiratory rate 20 /min Jaden Whipple MD Work Phone: [facility] 01-19-2023 11:10-0400 SaO2% (BldA) [Mass fraction] 93 % Jaden Whipple MD Work Phone: [facility] 01-19-2023 11:10-0400 Systolic blood pressure 117 mm[Hg] Jaden Whipple MD Work Phone: [facility] 10-18-2022 15:01-0500 Body temperature 97.5 [degF] Jaden Whipple MD Work Phone: [facility] 10-18-2022 15:01-0500 Body weight 118.03 kg Jaden Whipple MD Work Phone: [facility] 10-18-2022 15:01-0500 Diastolic blood pressure 60 mm[Hg] Jaden Whipple MD Work Phone: [facility] 10-18-2022 15:01-0500 Heart rate 76 /min Jaden Whipple MD Work Phone: [facility] 10-18-2022 15:01-0500 Respiratory rate 20 /min Jaden Whipple MD Work Phone: [facility] 10-18-2022 15:01-0500 SaO2% (BldA) [Mass fraction] 94 % Jaden Whipple MD Work Phone: [facility] 10-18-2022 15:01-0500 Systolic blood pressure 157 mm[Hg] Jaden Whiplpe MD Work Phone: [facility] 10-05-2022 10:57-0500 Body temperature 97.9 [degF] Nurse Main Work Phone: [facility] 10-05-2022 10:57-0500 Body weight 117.84 kg Nurse Main Work Phone: [facility] 10-05-2022 10:57-0500 Diastolic blood pressure 64 mm[Hg] Nurse Main Work Phone: [facility] 10-05-2022 10:57-0500 Heart rate 74 /min Nurse Main Work Phone: [facility] 10-05-2022 10:57-0500 Respiratory rate 16 /min Nurse Main Work Phone: [facility] 10-05-2022 10:57-0500 SaO2% (BldA) [Mass fraction] 94 % Nurse Main Work Phone: [facility] 10-05-2022 10:57-0500 Systolic blood pressure 140 mm[Hg] Nurse Main Work Phone: [facility] 09-21-2022 12:15-0500 Diastolic blood pressure 60 mm[Hg] Ihsan Shah MD Work Phone: [facility] 09-21-2022 12:15-0500 Heart rate 64 /min Ihsan Shah MD Work Phone: [facility] 09-21-2022 12:15-0500 Respiratory rate 18 /min Ihsan Shah MD Work Phone: [facility] 09-21-2022 12:15-0500 SaO2% (BldA) [Mass fraction] 96 % Ihsan Shah MD Work Phone: [facility] 09-21-2022 12:15-0500 Systolic blood pressure 128 mm[Hg] Ihsan Shah MD Work Phone: [facility] 09-21-2022 11:24-0500 Body temperature 96.8 [degF] Ihsan Shah MD Work Phone: [facility] 09-20-2022 08:46-0500 Body temperature 96.8 [degF] Sumaya Clement PA-C Work Phone: [facility] 09-20-2022 08:46-0500 Diastolic blood pressure 59 mm[Hg] Sumaya Clement PA-C Work Phone: [facility] 09-20-2022 08:46-0500 Heart rate 85 /min Sumaya Clement PA-C Work Phone: [facility] 09-20-2022 08:46-0500 Respiratory rate 16 /min Sumaya Clement PA-C Work Phone: [facility] 09-20-2022 08:46-0500 SaO2% (BldA) [Mass fraction] 94 % Sumaya Clement PA-C Work Phone: [facility] 09-20-2022 08:46-0500 Systolic blood pressure 136 mm[Hg] Sumaya Clement PA-C Work Phone: [facility] 06-01-2022 11:07-0400 Body height 182.9 cm Vesta Willard APRN.GROOMING ASSISTANT Work Phone: [facility] 06-01-2022 11:07-0400 Body weight 119.75 kg Vesta Willard APRN.GROOMING ASSISTANT Work Phone: [facility] 06-01-2022 11:07-0400 Diastolic blood pressure 80 mm[Hg] Vesta Willard FORM TAMPER.GROOMING ASSISTANT Work Phone: [facility] 06-01-2022 11:07-0400 Heart rate 71 /min Vesta Willard FORM TAMPER.GROOMING ASSISTANT Work Phone: [facility] 06-01-2022 11:07-0400 SaO2% (BldA) [Mass fraction] 93 % Vesta Willard FORM TAMPER.GROOMING ASSISTANT Work Phone: [facility] 06-01-2022 11:07-0400 Systolic blood pressure 143 mm[Hg] Vesta Willard FORM TAMPER.GROOMING ASSISTANT Work Phone: [facility] 05-18-2022 13:51-0400 Body temperature 97.81 [degF] Jaden Whipple MD Work Phone: [facility] 05-18-2022 13:51-0400 Body weight 119.93 kg Jaden Whipple MD Work Phone: [facility] 05-18-2022 13:51-0400 Diastolic blood pressure 82 mm[Hg] Jaden Whipple MD Work Phone: [facility] 05-18-2022 13:51-0400 Heart rate 71 /min Jaden Whipple MD Work Phone: [facility] 05-18-2022 13:51-0400 Respiratory rate 20 /min Jaden Whipple MD Work Phone: [facility] 05-18-2022 13:51-0400 SaO2% (BldA) [Mass fraction] 95 % Jaden Whipple MD Work Phone: [facility] 05-18-2022 13:51-0400 Systolic blood pressure 137 mm[Hg] Jadne Whipple MD Work Phone: [facility] 01-06-2022 13:29-0400 Body temperature 97.81 [degF] Jaden Whipple MD Work Phone: [facility] 01-06-2022 13:29-0400 Body weight 121.43 kg Jaden Whipple MD Work Phone: [facility] 01-06-2022 13:29-0400 Diastolic blood pressure 57 mm[Hg] Jaden Whipple MD Work Phone: [facility] 01-06-2022 13:29-0400 Heart rate 81 /min Jaden Whipple MD Work Phone: [facility] 01-06-2022 13:29-0400 Respiratory rate 18 /min Jdaen Whipple MD Work Phone: [facility] 01-06-2022 13:29-0400 SaO2% (BldA) [Mass fraction] 95 % Jaden Whipple MD Work Phone: [facility] 01-06-2022 13:29-0400 Systolic blood pressure 152 mm[Hg] Jaden Whipple MD Work Phone: [facility] 12-24-2021 13:00-0400 Body height 180.9 cm Pulm 1 Work Phone: [facility] 12-24-2021 13:00-0400 Body weight 118.25 kg Pulm 1 Work Phone: [facility] 12-24-2021 09:34-0400 Body temperature 97.5 [degF] Nurse Main Work Phone: [facility] 12-24-2021 09:34-0400 Body weight 118.84 kg Nurse Main Work Phone: [facility] 12-24-2021 09:34-0400 Diastolic blood pressure 59 mm[Hg] Nurse Main Work Phone: [facility] 12-24-2021 09:34-0400 Heart rate 74 /min Nurse Main Work Phone: [facility] 12-24-2021 09:34-0400 Respiratory rate 14 /min Nurse Main Work Phone: [facility] 12-24-2021 09:34-0400 SaO2% (BldA) [Mass fraction] 95 % Nurse Main Work Phone: [facility] 12-24-2021 09:34-0400 Systolic blood pressure 135 mm[Hg] Nurse Main Work Phone: [facility] 12-21-2021 10:10-0400 Body height 181.6 cm Jaden Whipple MD Work Phone: [facility] 12-21-2021 10:10-0400 Body temperature 97.39 [degF] Jaden Whipple MD Work Phone: [facility] 12-21-2021 10:10-0400 Body weight 118.62 kg Jaden Whipple MD Work Phone: [facility] 12-21-2021 10:10-0400 Diastolic blood pressure 62 mm[Hg] Jaden Whipple MD Work Phone: [facility] 12-21-2021 10:10-0400 Heart rate 73 /min Jaden Whipple MD Work Phone: [facility] 12-21-2021 10:10-0400 Respiratory rate 20 /min Jaden Whipple MD Work Phone: [facility] 12-21-2021 10:10-0400 SaO2% (BldA) [Mass fraction] 97 % Jaden Whipple MD Work Phone: [facility] 12-21-2021 10:10-0400 Systolic blood pressure 142 mm[Hg] Jaden Whipple MD Work Phone: [facility] 08-17-2021 10:00-0500 Body height 185.42 cm Jethro Escoto Other [employer] Other 08-17-2021 10:00-0500 Body mass index (BMI) [Ratio] 34.04 kg/m2 Jethro Escoto Other [facility] Other 08-17-2021 10:00-0500 Body weight 117.03 kg Jethro Escoto Other [employer] Other Encounters Encounter Date Encounter Type Care Provider Facility Start: 08-21-2024 ambulatory Julita Jameson Facility:[facility] Start: 05-24-2024 End: 05-24-2024 Orders Only Jaden Whipple MD Work Phone: Radiation Oncology Comment on above: Malignant neoplasm o f unspecified part of unspecified bronchus or lung (HCC) (Primary Dx) Start: 05-07-2024 End: 05-07-2024 Subsequent hospital visit by physician Shelia Blue MD Work Phone: Radiology Comment on above: Pleural effusion [J9 0] Start: 05-07-2024 End: 05-07-2024 ambulatory AIDEE RAMESH Facility:[facility] Start: 05-02-2024 End: 05-24-2024 Telemedicine consultation with patient Jaden Whipple MD Work Phone: Radiation Oncology Start: 05-02-[address] [id number] Comment on above: Appointment (Thorace ntesis) Start: 05-02-2024 End: 05-24-2024 ambulatory Jaden Whipple MD Work Phone: Radiation Oncology Comment on above: Malignant neoplasm o f unspecified part of unspecified bronchus or lung (HCC) (Primary Dx); Pleural effusion Start: 04-30-2024 End: 04-30-2024 ambulatory JADEN WHIPPLE Facility:[facility] Start: 04-30-2024 End: 04-30-2024 Subsequent hospital visit by physician Arrival Time Radiology Work Phone: Radiology Pet CT Comment on above: Malignant neoplasm o f unspecified part of unspecified bronchus or lung (HCC) [C34.90] Start: 04-23-2024 End: 04-23-2024 ambulatory AIDEE RAMESH Not Available Start: 02-28-2024 End: 02-28-2024 ambulatory AIDEE RAMESH Facility:[facility] Start: 02-28-2024 End: 02-28-2024 Patient encounter procedure Julita Jameson [facility] Start: 02-10-2024 Refill William Salazar MD Work Phone: Pulmonary Medicine Comment on above: Refill Request Start: 01-18-2024 ambulatory Julita Jameson Facility:[facility] Start: 01-18-2024 End: 01-18-2024 ambulatory AIDEE WORLEYHOLChristos Not Available Start: 12-06-2023 End: 12-06-2023 ambulatory AIDEE AICHHOLZ Not Available Start: 11-02-2023 ambulatory Jaden corcker MD Work Phone: Radiation Oncology Comment on above: Malignant neoplasm o f unspecified part of unspecified bronchus or lung (HCC) (Primary Dx) Start: 11-02-2023 Telemedicine consultation with patient Jaden Whipple MD Work Phone: [facility] Start: 11-01-2023 End: 11-01-2023 ambulatory JADEN WHIPPLE Facility:[facility] Start: 10-20-2023 End: 10-20-2023 ambulatory JADEN WHIPPLE Facility:[facility] Start: 10-20-2023 End: 10-20-2023 Subsequent hospital visit by physician Arrival Time Radiology Work Phone: Radiology Pet CT Comment on above: Malignant neoplasm o f unspecified part of unspecified bronchus or lung (HCC) [C34.90] Start: 06-17-2023 Refill Vesta Willard APRN.CNP Work Phone: Pulmonary Medicine Comment on above: Refill Request Start: 01-19-2023 End: 01-19-2023 Patient encounter procedure Jaden Whipple MD Work Phone: Radiation Oncology Comment on above: Malignant neoplasm o f unspecified part of unspecified bronchus or lung (HCC) (Primary Dx) Start: 01-19-2023 End: 01-19-2023 Subsequent hospital visit by physician [facility] Work Phone: Radiology Comment on above: Neoplasm of lung [D4 9.1] Start: 01-16-2023 End: 01-16-2023 ambulatory [facility]m [place] Work Phone: Pulmonary Lab Comment on above: Spirometry Start: 01-16-2023 End: 01-16-2023 Patient encounter procedure [facility] [place] Work Phone: [facility] Start: 10-18-2022 End: 10-18-2022 Patient encounter procedure Jaden Whipple MD Work Phone: [facility] Comment on above: Malignant neoplasm o f bronchus and lung (HCC) (Primary Dx); Neoplasm of lung Start: 10-18-2022 Radiation Oncology Note Asher Whipple MD Work Phone: Radiation Oncology Comment on above: Completion Note Start: 10-05-2022 End: 10-05-2022 Patient encounter procedure Jaden Whipple MD Work Phone: [facility] Comment on above: Malignant neoplasm o f upper lobe of right lung (HCC) (Primary Dx) Start: 10-05-2022 Radiation Oncology Note Asher Whipple MD Work Phone: Radiation Oncology Comment on above: Simulation Note Treatment Planning Start: 10-05-2022 End: 10-05-2022 Nursing evaluation of patient and report Nurse Juliann Main Work Phone: Radiation Oncology Comment on above: Lung nodules (Primar y Dx); Malignant neoplasm of upper lobe of right lung (HCC) Start: 10-03-2022 End: 10-04-2022 ambulatory GENO RAMESH Facility: Start: 09-28-2022 Orders Only Jaden crocker MD Work Phone: Radiation Oncology Comment on above: Lung nodules (Primar y Dx); Malignant neoplasm of upper lobe of right lung (HCC) Start: 09-26-2022 Telephone encounter Ihsan Shah MD Work Phone: Pulmonary Medicine Comment on above: Results Malignant neoplasm o f upper lobe of right lung (HCC) (Primary Dx) Start: 09-21-2022 End: 09-21-2022 Subsequent hospital visit by physician Ihasn Shah MD Work Phone: Admitting Comment on above: Bronchiolar disease [J98.09] Start: 09-20-2022 End: 09-20-2022 Subsequent hospital visit by physician Ct 2 Main Qb (I-Stat) Radiology Comment on above: Preoperative examina tion [Z01.818] Start: 09-20-2022 End: 09-20-2022 Patient encounter procedure Sumayalucho Peña PA-C Work Phone: Pulmonary Medicine Comment on above: Chronic obstructive pulmonary disease, unspecified COPD type (HCC) (Primary Dx); Preoperative examination; Abnormal finding on lung imaging; Malignant neoplasm of upper lobe of right lung (HCC); Nicotine dependence, cigarettes, uncomplicated Start: 09-20-2022 End: 09-20-2022 Preprocedural examination done Sumayalucho Peña PA-C Work Phone: Pulmonary Medicine Start: 09-08-2022 [facility] above: pre op bronch (Sched ule and confirm) Start: 09-07-2022 Orders Only Sumaya Kwok ent PA-C Work Phone: Admitting Comment on above: Preoperative examina tion (Primary Dx) Start: 09-07-2022 Preprocedural examination done Sumayalucho Peña PA-C Work Phone: Admitting Start: 09-06-2022 Telephone encounter Jaden Whipple MD Work Phone: Radiation Oncology Comment on above: Bronchoscopy Schedul ing Start: 08-15-2022 Orders Only Jaden crocker MD Work Phone: Radiation Oncology Comment on above: Lung nodules (Primar y Dx); Neoplasm of lung Start: 08-12-2022 End: 08-12-2022 Subsequent hospital visit by physician Mindy [facility] Work Phone: Radiology Comment on above: Malignant neoplasm o f unspecified part of unspecified bronchus or lung (HCC) [C34.90] Start: 06-01-2022 End: 06-01-2022 Orders Only William Salazar MD Work Phone: Pulmonary Medicine Comment on above: COPD, severe (HCC) ( Primary Dx) Lung nodule Start: 05-19-2022 Patient encounter procedure Karen Riggins RN Pulmonary Medicine Comment on above: Lung nodule (Primary Dx) Start: 05-19-2022 Telephone encounter Karen Riggins RN Pulmonary Medicine Comment on above: Dr. Seven roper obey't w /MD or OBEY Start: 05-18-2022 End: 05-18-2022 ambulatory Pulm [facility] Pulmonary Medicine Comment on above: Spirometry Start: 05-18-2022 End: 05-18-2022 Patient encounter procedure Pulm [facility] 8 [facility] Comment on above: Malignant neoplasm o f unspecified part of unspecified bronchus or lung (HCC) (Primary Dx) Start: 05-17-2022 End: 05-17-2022 Subsequent hospital visit by physician Mindy [facility] Work Phone: Radiology Comment on above: Malignant neoplasm o f unspecified part of unspecified bronchus or lung (HCC) [C34.90] Start: 03-17-2022 End: 03-18-2022 ambulatory GROOMING ASSISTANT AIDEE RAMESH Facility: Start: 01-06-2022 End: 01-06-2022 Patient encounter procedure Jaden Whipple MD Work Phone: Radiation Oncology Comment on above: Malignant neoplasm o f upper lobe of right lung (HCC) (Primary Dx); Malignant neoplasm of unspecified part of unspecified bronchus or lung (HCC) Start: 12-24-2021 End: 12-24-2021 Patient encounter procedure Pulm [facility] 1 Work Phone: [facility] Start: 12-24-2021 Radiation Oncology Note Asher Whipple MD Work Phone: Radiation Oncology Comment on above: Simulation Note Treatment Planning Start: 12-24-2021 End: 12-24-2021 ambulatory Pulm [facility] 1 Work Phone: Pulmonary Medicine Comment on above: Spirometry Start: 12-24-2021 End: 12-24-2021 Nursing evaluation of patient and report Nurse Radt Main Work Phone: Radiation Oncology Comment on above: Malignant neoplasm o f upper lobe of right lung (HCC) (Primary Dx) Start: 12-21-2021 End: 12-21-2021 Orders Only Jaden Whipple MD Work Phone: Radiation Oncology Comment on above: Malignant neoplasm o f upper lobe of right lung (HCC) (Primary Dx) Start: 12-09-2021 Chart abstracting [place] FORM TAMPER.GROOMING ASSISTANT Work Phone: Radiation Oncology Start: 12-08-2021 Telephone encounter Karen Riggins RN Pulmonary Medicine Comment on above: Appointment (1st Rad -Onc visit) Start: 10-16-[address] DOCTOR JIANG Facility : Start: 09-24-2021 End: 09-24-2021 ambulatory Jethro Escoto Other [employer] Other Start: 09-24-2021 Telephone encounter Jethro VARGAS G G[facility] Start: 08-17-2021 End: 08-17-2021 ambulatory Jethro Escoto Other [employer] Other Start: 08-17-2021 Patient encounter procedure Jethro Escoto [facility] Start: 03-24-2017 End: 03-25-2017 Ambulatory LANA Arcos [facility] Start: 03-16-2017 End: 03-17-2017 Ambulatory DEFAULT PHYSICIAN Facility:[facility] Procedures Date Procedure Procedure Detail Performing Clinician Start: 05-07-2024 Radiologic exam ches t 2 views Shelia Blue MD Work Phone: Start: 04-30-2024 Ct thorax w/o contra st material Jaden Whipple MD Work Phone: Start: 10-20-2023 Ct thorax w/o contra st material Yessi Martins MD Work Phone: Start: 01-19-2023 Ct thorax w/o contra st material Soco Shelley FORM TAMPER.GROOMING ASSISTANT Work Phone: Start: 01-16-2023 Spmtry w/vc expirato ry mary w/wo mxml vol vntj [place] Shel[place] FORM TAMPER.GROOMING ASSISTANT Work Phone: Start: 09-21-2022 Cytp eval fine needl e aspirate interp & report Ihsan Shah MD Work Phone: Start: 09-21-2022 End: 09-21-2022 Brnchsc incl fluor gdnce dx w/cell washg spx Ihsan Shah MD Work Phone: Start: 09-21-2022 Brnchsc incl fluor g dnce dx w/cell washg spx Jaden Whipple MD Work Phone: Start: 09-20-2022 Ct thorax w/o contra st material Sumaya Peña PA-C Work Phone: Start: 08-12-2022 Ct thorax w/o contra st material Sarabjit Espino MD Work Phone: Start: 05-18-2022 Spmtry w/vc expirato ry mary w/wo mxml vol vntj Jaden Whipple MD Work Phone: Start: 05-17-2022 Ct thorax w/o contra st material Jaden Whipple MD Work Phone: Start: 05-15-2022 Adult depression scr eening assessment Pulm 8 Start: 12-24-2021 Pulmonary stress testing William Salazar MD Work Phone: Start: 12-24-2021 Brncdilat rspse spmt ry pre&post-brncdilat admn William Salazar MD Work Phone: Start: 12-23-2021 Adult depression scr eening assessment Nurse Main Work Phone: Start: 03-24-2017 CT LUNG SCREENING LANA EL Start: 06-30-2014 Transurethral cystoscopy Julita Lue Appendectomy Julita Lue Cataract (disorder) Julita michaels Knee region structur e (body structure) Julita Jameson Tonsillectomy Julita Jameson Plan of Treatment Date Care Activity Detail Author Start: 05-17-2025 DIABETES SCREEN DIABETES SCREEN [facility] Start: 05-19-2024 Covid-19 Vaccine () Covid-19 Vaccine () [facility] Start: 05-19-2024 Influenza vaccination [facility] Start: 05-07-2024 End: 05-07-2024 Admission to same day surgery center 05/07/2024 1:30 PM EDT - 05/07/2024 2:30 PM EDT Surgery Admitting [address] [place], [place] [id number] Shelia Blue MD [address] [id number] THORACENTESIS NEEDLE OR CATHETER ASPIRATION OF THE PLEURAL SPACE W IMAGING GUIDANCE Admitting Comment on above: THORACENTESIS NEEDLE OR CATHETER ASPIRATION OF THE PLEURAL SPACE W IMAGING GUIDANCE Start: 05-07-2024 Subsequent hospital visit by physician 05/07/2024 1:30 PM EDT Hospital Encounter Admitting [address] [place] [id number] Shelia Blue MD [address] [place] [address] Bronchiolar disease [J98.09] Admitting Comment on above: Bronchiolar disease [J98.09] Start: 05-07-2024 End: 05-07-2024 Thoracentesis needle/cath pleura w/imaging THORACENTESIS NEEDLE OR CATHETER ASPIRATION OF THE PLEURAL SPACE W IMAGING GUIDANCE Bronchiolar disease 05/07/2024 1:30 PM EDT [facility] Start: 02-06-2024 DIABETES SCREEN DIABETES SCREEN [facility] Start: 01-20-2024 BP CONTROLLED (<130/80) BP CONTROLLE D (<130/80) [facility] Start: 09-18-2023 Advance Directive Discussion Advance Directive Discussion [facility] Start: 09-18-2023 Behavioral Health Screening Behavioral Health Screening [facility] Start: 09-18-2023 Depression Assessment Depression Ass essment [facility] Start: 05-19-2023 Covid-19 Vaccine ( season) Covid-19 Vaccine ( season) [facility] Start: 05-19-2023 Influenza vaccination [facility] Start: 05-15-2023 Adult depression screening assessment DEPRESSION SCREENING [facility] Start: 04-21-2023 End: 02-18-2024 Ct thorax w/o contrast material CT CHEST WO IVCON Radiology Routine Malignant neoplasm of unspecified part of unspecified bronchus or lung (HCC) Expected: 04/21/2023, Expires: 02/18/2024 [facility] Work Phone: Comment on above: Expected: 04/21/2023 , Expires: 02/18/2024 Start: 01-15-2023 End: 11-16-2023 Ct thorax w/o contrast material CT CHEST WO IVCON Radiology Routine Neoplasm of lung Expected: 01/15/2023 (Approximate), Expires: 11/16/2023 [facility] Work Phone: Comment on above: Expected: 01/15/2023 (Approximate), Expires: 11/16/2023 Start: 01-15-2023 End: 11-17-2023 SPIROMETRY BASELINE ONLY SPIROMETRY BASELINE ONLY PFT Routine Malignant neoplasm of bronchus and lung (HCC) Expected: 01/15/2023 (Approximate), Expires: 11/17/2023 [facility] Work Phone: Comment on above: Expected: 01/15/2023 (Approximate), Expires: 11/17/2023 Start: 12-23-2022 Adult depression screening assessment DEPRESSION SCREENING [facility] Start: 11-15-2022 End: 11-17-2023 LUNG DIFFUSION CAPACITY (DLCO) LUNG DIFFUSION CAPACITY (DLCO) PFT Routine Malignant neoplasm of bronchus and lung (HCC) Expected: 11/15/2022 (Approximate), Expires: 11/17/2023 [facility] Work Phone: Comment on above: Expected: 11/15/2022 (Approximate), Expires: 11/17/2023 Start: 09-18-2022 ADVANCE DIRECTIVE DISCUSSION ADVANCE DIRECTIVE DISCUSSION [facility] Start: 09-18-2022 DEPRESSION ASSESSMENT DEPRESSION ASS ESSMENT [facility] Start: 09-07-2022 End: 11-07-2022 Basic metabolic 2000 panel - Serum or Plasma BASIC METABOLIC PNL Lab STAT Preoperative examination Expected: 09/07/2022, Expires: 11/07/2022 [facility] Work Phone: Comment on above: Expected: 09/07/2022 , Expires: 11/07/2022 Start: 09-07-2022 End: 11-07-2022 CBC W Auto Differential panel - Blood CBC + DIFF Lab STAT Preoperative examination Expected: 09/07/2022, Expires: 11/07/2022 [facility] Work Phone: Comment on above: Expected: 09/07/2022 , Expires: 11/07/2022 Start: 09-07-2022 End: 10-07-2023 Ct thorax w/o contrast material CT CHEST WO IVCON Radiology Routine Preoperative examination Expected: 09/07/2022, Expires: 10/07/2023 [facility] Work Phone: Comment on above: Expected: 09/07/2022 , Expires: 10/07/2023 Start: 09-07-2022 End: 09-07-2023 ECG COMPLETE ECG COMPLETE ECG STAT Preoperative examination Expected: 09/07/2022, Expires: 09/07/2023 [facility] Work Phone: Comment on above: Expected: 09/07/2022 , Expires: 09/07/2023 Start: 09-07-2022 End: 01-06-2023 SARS-CoV-2 (COVID-19) RNA [Presence] in Respiratory specimen by GABBY with probe detection INTERMEDIATE RAPID COVID Microbiology Routine Preoperative examination Expected: 09/07/2022, Expires: 01/06/2023 [facility] Work Phone: Comment on above: Expected: 09/07/2022 , Expires: 01/06/2023 Start: 05-19-2022 Influenza vaccination [facility] Start: 12-16-2021 COVID-19 VACCINE (3 - Booster for Pfizer series) COVID-19 VACCINE (3 - Booster for Pfizer series) [facility] Start: 09-18-2021 ADVANCE DIRECTIVE DISCUSSION ADVANCE DIRECTIVE DISCUSSION [facility] Start: 09-18-2021 DEPRESSION ASSESSMENT DEPRESSION ASS ESSMENT [facility] Start: 09-12-2021 COVID-19 VACCINE (3 - Booster for Pfizer series) COVID-19 VACCINE (3 - Booster for Pfizer series) [facility] Start: 09-12-2021 COVID-19 VACCINE (3 - Pfizer series) COVID-19 VACCINE (3 - Pfizer series) [facility] Start: 05-19-2021 Influenza vaccination INFLUENZA (#1) [facility] Start: 03-18-2019 Urine microalbumin profile DTaP,Tdap,Td Vaccine (2 - Td or Tdap) [facility] Start: 2016 PNEUMOVAX AGE 65 AND OVER WITH 5YR LOOKBACK (#1) PNEUMOVAX AGE 65 AND OVER WITH 5YR LOOKBACK (#1) [facility] Start: 2011 Hepatitis B Vaccine (1 of 3 - Risk 3-dose series) Hepatitis B Vaccine (1 of 3 - Risk 3-dose series) [facility] Start: 2011 RSV Vaccine (1 - 1-d ose 60+ series) RSV Vaccine (1 - 1-dose 60+ series) [facility] Start: 2001 SHINGRIX VACCINE (1 of 2) SHINGRIX VACCINE (1 of 2) [facility] Start: 1996 COLOGUARD (FIT-DNA) COLOGUARD (FIT-D NA) [facility] Start: 1996 Colonoscopy COLONOSCOPY [facility] Start: 1996 COLORECTAL CANCER SCREENING COLORECTAL CANCER SCREENING [facility] Start: [address] COLONOGRAPHY [facility] Start: 1996 FECAL OCCULT BLOOD FECAL OCCULT BLOO D [facility] Start: 1996 Screening for malign ant neoplasm of colon [facility] Start: 1996 SIGMOIDOSCOPY SIGMOIDOSCOPY [facility] Start: 1986 LIPID SCREEN LIPID SCREEN [facility] Start: 1981 Zoledronic acid therapy ALPHA- 1 ANTITRYPSIN DEFICIENCY SCREENING [facility] Start: 1970 Urine microalbumin profile [facility] Start: 1969 ANNUAL PCP TEAM ELDERLY COMPANION MK DISEASE VISIT ANNUAL PCP TEAM CHRONIC DISEASE VISIT [facility] Start: 1969 Anxiety Screening Anxiety Screening [facility] Start: 1969 BP CONTROLLED (<130/80) BP CONTROLLE D (<130/80) [facility] Start: 1969 Depression Screening Depression Scre ening [facility] Start: 1969 Hepatitis B surface antibody level LDL CHOLESTEROL [facility] Start: 1969 HEPATITIS C SCREENING HEPATITIS C SC [facility] Start: 1969 Hepatitis C screening Hepatitis C Sc [facility] Start: 1963 Adult depression screening assessment DEPRESSION SCREENING [facility] Start: 1961 3 comp foot exam completed DIABETIC FOOT EXAM [facility] Start: 1961 Diabetic foot examination Diabetic Foot Exam [facility] Start: 1961 Glaucoma screening Dilated Retinal E xam [facility] Start: 1961 Hepatitis B screening URINE AL BUMIN:CREATININE RATIO [facility] Start: 1961 Hepatitis C antibody , confirmatory test DILATED RETINAL EXAM [facility] Start: 1957 Pneumococcal Vaccine : 65+ (1 - PCV) Pneumococcal Vaccine: 65+ (1 - PCV) [facility] Start: 1957 PNEUMOCOCCAL: 65+ (1 - PCV) PNEUMOCOCCAL: 65+ (1 - PCV) [facility] Start: 1956 Hemoglobin A1c measurement HbA1C [facility] Start: 1956 Hemoglobin A1c/Hemoglobin.total in Blood HBA1C [facility] Start: 1951 ABDOMINAL AORTIC ANEURYSM SCREENING ABDOMINAL AORTIC ANEURYSM SCREENING [facility] Start: 1951 Abdominal aortic aneurysm screening Abdominal Aortic Aneurysm Screening [facility] End: 12-01-2024 CT Chest WO contrast CT CHEST WO IVCON Radiology Routine Malignant neoplasm of unspecified part of unspecified bronchus or lung (HCC) 1 Occurrences starting 11/02/2023 until 12/01/2024 [facility] Work Phone: Comment on above: 1 Occurrences starti ng 11/02/2023 until 12/01/2024 End: 06-23-2025 CT Chest WO contrast CT CHEST WO IVCON Radiology Routine Malignant neoplasm of unspecified part of unspecified bronchus or lung (HCC) 1 Occurrences starting 05/24/2024 until 06/23/2025 [facility] Work Phone: Comment on above: 1 Occurrences starti ng 05/24/2024 until 06/23/2025 CT SIM PLANNING RADIATION ONCOLOGY CT SIM PLANNING RADIATION ONCOLOGY Radiology Routine Malignant neoplasm of upper lobe of right lung (HCC) Ordered: 12/22/2021 [facility] Work Phone: Comment on above: Ordered: 12/22/2021 CT SIM PLANNING RADIATION ONCOLOGY CT SIM PLANNING RADIATION ONCOLOGY Radiology Routine Malignant neoplasm of upper lobe of right lung (HCC) Ordered: 09/29/2022 [facility] Work Phone: Comment on above: Ordered: 09/29/2022 End: 02-05-2023 Ct thorax w/o contrast material CT CHEST WO IVCON Radiology Routine Malignant neoplasm of unspecified part of unspecified bronchus or lung (HCC) 1 Occurrences starting 01/06/2022 until 02/05/2023 [facility] Work Phone: Comment on above: 1 Occurrences starti ng 01/06/2022 until 02/05/2023 End: 06-17-2023 Ct thorax w/o contrast material CT CHEST WO IVCON Radiology Routine Malignant neoplasm of unspecified part of unspecified bronchus or lung (HCC) 1 Occurrences starting 05/18/2022 until 06/17/2023 [facility] Work Phone: Comment on above: 1 Occurrences starti ng 05/18/2022 until 06/17/2023 End: 02-05-2023 LUNG DIFFUSION CAPACITY (DLCO) LUNG DIFFUSION CAPACITY (DLCO) PFT Routine Malignant neoplasm of upper lobe of right lung (HCC) 1 Occurrences starting 01/06/2022 until 02/05/2023 [facility] Work Phone: Comment on above: 1 Occurrences starti ng 01/06/2022 until 02/05/2023 End: 09-14-[address] attenuation skull base mid-thigh NM PET/CT SKULL-THIGH INITIAL Radiology Routine Lung nodules Neoplasm of lung 1 Occurrences starting 08/15/2022 until 09/14/2023 [facility] Work Phone: Comment on above: 1 Occurrences starti ng 08/15/2022 until 09/14/2023 Pulmonary rehabilita tion pro PULMONARY REHABILITATION PRO Procedures Routine COPD, severe (HCC) Ordered: 06/01/2022 [facility] Work Phone: Comment on above: Ordered: 06/01/2022 End: 02-05-2023 SPIROMETRY BASELINE ONLY SPIROMETRY BASELINE ONLY PFT Routine Malignant neoplasm of upper lobe of right lung (HCC) 1 Occurrences starting 01/06/2022 until 02/05/2023 [facility] Work Phone: Comment on above: 1 Occurrences starti ng 01/06/2022 until 02/05/2023 SPIROMETRY BASELINE ONLY SPIROME TRY BASELINE ONLY PFT Routine Malignant neoplasm of upper lobe of right lung (HCC) 05/18/2022 9:27 AM EDT [facility] Work Phone: SPIROMETRY BASELINE ONLY SPIROME TRY BASELINE ONLY PFT Routine Malignant neoplasm of bronchus and lung (HCC) 01/16/2023 10:20 AM EDT [facility] Work Phone: SPIROMETRY WITH DILA TOR IF OBSTRUCTED SPIROMETRY WITH DILATOR IF OBSTRUCTED PFT Routine Lung nodule Chronic obstructive pulmonary disease, unspecified COPD type (HCC) Nicotine dependence, chewing tobacco, with other nicotine-induced disorders 12/24/2021 12:09 PM EDT [facility] Work Phone: [facility] Immunizations Immunization Date Immunization Notes Care Provider Nanci chavez 06-20-2023 influenza virus vacc ine, unspecified formulation Lady GUILLEN [facility] 06-18-2022 influenza virus vacc ine, unspecified formulation Vesta Willard APRN.GROOMING ASSISTANT Work Phone: [facility] Payers Date Payer Category Payer Medicaid [place] [id number] 2023-Present [phone] [address] [place] [address] Medicaid [id number] 2023 Medicaid [id number] 2023 Private Health Insurance [id number] 2021 Medicare HUMANA MEDICARE HU[employer]NA MEDICARE PPO [id number] 2021-Present [phone] [address] [address] [place] [address] PPO [id number] 2021 Medicare [id number] 2016 Medicare [id number] 1959 Medicare [id number] 1959 Self-pay 1950 Unknown [id number] 1951 Unknown [id number] 93 1951 Unknown [id number] 93 1951 Unknown [id number] 259 1951 Unknown [id number] 1951 Unknown [id number] 259 1951 Unknown [id number] 27 1951 Unknown [id number] 27 1951 Unknown [id number] 27 Unknown Social History Date Type Detail Facility Start: 09-18-1972 End: 09-20-2022 Tobacco smoking status NHIS Smokes tobacco daily [facility] Start: 09-18-1972 History of tobacco use Cigarette Smo ker [facility] Start: 01-26-2021 End: 08-13-2022 Cigarettes smoked current (pack per day) - Reported 1 [facility] Start: 01-26-2021 End: 09-20-2022 Tobacco use and exposure Smokeless tobacco non-user [facility] Start: 02-05-2021 End: 01-19-2023 Alcohol intake Ex-drinker (finding) [facility] Start: 1950 Sex Assigned At Male [facility] Start: 12-11-2021 End: 05-18-2022 Exposure to SARS-CoV-2 (event) Not sure [facility] Start: 01-26-2021 End: 05-18-2022 Sex Assigned At [facility] Start: 06-01-2022 Tobacco Comment Currently smok ing 0.5 pack a day [facility] Start: 08-05-2022 End: 08-15-2022 Exposure to SARS-CoV-2 (event) Unable to assess [facility] Start: 09-20-2022 Tobacco Comment Currently smok ing 0.5 pack a day. 09/20/22 - smokes 1 pack over 3 days. [facility] Adult Depression Screening Assessment 1 [facility] Start: 11-25-2021 Gender identity Identifies as male gender (finding) [facility] Start: 11-25-2021 Sexual orientation Heterosexual (fin ding) [facility] Start: 02-28-2024 Tobacco smoking status Light t obacco smoker (finding) [facility] Functional Status Date Assessment Result Facility 02-28-2024 Functional Status N/A [facility] Clinical Notes 06-18-2021 to 05-24-2024 Jaden Whipple MD - 05/24/2024 7:50 AM Timmy Baird RT(R) - 05/07/2024 2:55 PM Wild Brasher RT(R) - 04/30/2024 1:15 PM EDTJaden Whipple MD - 11/01/2023 4:00 PM EST Note Date & Type Note Facility 05-24-2024 Note HNO ID: [id number] Author: JADEN WHIPPLE MD Service: ? Author Type: Physician Type: Progress Notes Filed: 05/24/2024 07:55 Note Text: AMBULATORY TELEPHONE VISIT Markel Riggins has consented to this telephone encounter. Persons Present: patient DIAGNOSIS: High risk operable [by PFTs] 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 S/p SBRT to the RUL 34 Gy in 1 fx completed on 10/18/22 Chief Complaint/Reason: surveillance HPI: says he notes increasing SOB, otherwise generally feeling OK Data Reviewed: Most recent imaging Results CT CHEST WO IVCON ([id number]) (Order [id number]) Patient Info Patient Name Sex Markel Riggins ([id number]) Male 1950 05/01/2024 3:35 PM - Radiology, Oru In Impression IMPRESSION: 1. Stable post radiation scarring in the right upper lobe. Interval increase in right low density pleural effusion, of uncertain etiology. 2. No new or enlarging pulmonary nodules/thoracic lymphadenopathy. Transcribe Date/Time: May 01 2024 1:27P Dictated by: ANGELES GAY MD This examination was interpreted and the report reviewed and electronically signed by: ROLANDO CORDOVA MD on May 01 2024 3:33PM EST Thank you for allowing us to participate in the care of your patient. Should there be any questions regarding this interpretation, please call [phone]. If you are unable to reach us at the number above, please feel free to contact [facility] at [phone]. Assessment: Worsening R pleural effusion, likely reactive as late SBRT effect Plan: Refer to pulmonary medicine to consider thoracentesis, dx and therapeutic Total Time Spent: 15 minutes Jaden Whipple MD [facility] 05-24-2024 History of Presen t illness Narrative AMBULATORY TELEPHONE VISIT Markel Riggins has consented to this telephone encounter. Persons Present: patient DIAGNOSIS: High risk operable [by PFTs] 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 S/p SBRT to the RUL 34 Gy in 1 fx completed on 10/18/22 Chief Complaint/Reason: surveillance HPI: says he notes increasing SOB, otherwise generally feeling OK Data Reviewed: Most recent imaging Results CT CHEST WO IVCON (Acc#[id number]) (Order [id number]) Patient Info Patient Name Sex Markel Riggins ([id number]) Male 1950 05/01/2024 3:35 PM - Radiology, Oru In Impression IMPRESSION: 1. Stable post radiation scarring in the right upper lobe. Interval increase in right low density pleural effusion, of uncertain etiology. 2. No new or enlarging pulmonary nodules/thoracic lymphadenopathy. Transcribe Date/Time: May 01 2024 1:27P Dictated by: ANGELES GAY MD This examination was interpreted and the report reviewed and electronically signed by: ROLANDO CORDOVA MD on May 01 2024 3:33PM EST Thank you for allowing us to participate in the care of your patient. Should there be any questions regarding this interpretation, please call [phone]. If you are unable to reach us at the number above, please feel free to contact [facility] at [phone]. Assessment: Worsening R pleural effusion, likely reactive as late SBRT effect Plan: Refer to pulmonary medicine to consider thoracentesis, dx and therapeutic Total Time Spent: 15 minutes Jaden Whipple MD documented in this encounter [facility] 05-07-2024 History of Presen t illness Narrative Radiology Service Progress Note PATIENT NAME: Markel Riggins DATE OF SERVICE: May 07, 2024 TIME: 3:09 PM PATIENT IDENTITY VERIFICATION COMPLETED USING TWO (2) IDENTIFIERS: Name and Date of confirmed by patient verbally. FALL SCREENING: Has the patient had 2 falls in the last year or 1 fall with injury or currently using an Ambulatory Assistive Device (Walker, Cane, Wheelchair, Crutches, etc.)? No PATIENT GENDER DATA: Male PATIENT RELEVANT IMPLANT DATA REVIEWED: Not Applicable PATIENT PRESENTS WITH AN IMPLANTABLE OR ATTACHED BIOMEDICAL EQUIPMENT TECH: No RADIOLOGY DEPARTMENT: General X-ray: Exam(s) Completed: Chest X-Ray PERIPHERAL IV DATA: Not applicable SIGNED BY: RT Marilu(Dereje) May 07, 2024 3:09 PM documented in this encounter [facility] 05-07-2024 Note HNO ID: [id number] Author: TIMMY DEL ROSARIO RT(Dereje) Service: ? Author Type: Bag Turner Type: Progress Notes Filed: 05/07/2024 15:09 Note Text: Radiology Service Progress Note PATIENT NAME: Markel Riggins DATE OF SERVICE: May 07, 2024 TIME: 3:09 PM PATIENT IDENTITY VERIFICATION COMPLETED USING TWO (2) IDENTIFIERS: Name and Date of confirmed by patient verbally. FALL SCREENING: Has the patient had 2 falls in the last year or 1 fall with injury or currently using an Ambulatory Assistive Device (Walker, Cane, Wheelchair, Crutches, etc.)? No PATIENT GENDER DATA: Male PATIENT RELEVANT IMPLANT DATA REVIEWED: Not Applicable PATIENT PRESENTS WITH AN IMPLANTABLE OR ATTACHED BIOMEDICAL EQUIPMENT TECH: No RADIOLOGY DEPARTMENT: General X-ray: Exam(s) Completed: Chest X-Ray PERIPHERAL IV DATA: Not applicable SIGNED BY: RT Marilu(Dereje) May 07, 2024 3:09 PM [facility] 04-30-2024 History of Presen t illness Narrative Radiology Service Progress Note PATIENT NAME: Markel Riggins DATE OF SERVICE: April 30, 2024 TIME: 1:46 PM PATIENT IDENTITY VERIFICATION COMPLETED USING TWO (2) IDENTIFIERS: Name and Date of confirmed by patient verbally. FALL SCREENING: Has the patient had 2 falls in the last year or 1 fall with injury or currently using an Ambulatory Assistive Device (Walker, Cane, Wheelchair, Crutches, etc.)? No PATIENT GENDER DATA: Male PATIENT RELEVANT IMPLANT DATA REVIEWED: Not Applicable PATIENT PRESENTS WITH AN IMPLANTABLE OR ATTACHED BIOMEDICAL EQUIPMENT TECH: No RADIOLOGY DEPARTMENT: CT; Exam(s) Completed: Chest PERIPHERAL IV DATA: Not applicable SIGNED BY: RT Anna(Dereje) April 30, 2024 1:46 PM documented in this encounter [facility] 04-30-2024 Note HNO ID: [id number] Author: WILD SAMSON RT(R) Service: ? Author Type: Technologist Type: Progress Notes Filed: 04/30/2024 13:46 Note Text: Radiology Service Progress Note PATIENT NAME: Markel Riggins DATE OF SERVICE: April 30, 2024 TIME: 1:46 PM PATIENT IDENTITY VERIFICATION COMPLETED USING TWO (2) IDENTIFIERS: Name and Date of confirmed by patient verbally. FALL SCREENING: Has the patient had 2 falls in the last year or 1 fall with injury or currently using an Ambulatory Assistive Device (Walker, Cane, Wheelchair, Crutches, etc.)? No PATIENT GENDER DATA: Male PATIENT RELEVANT IMPLANT DATA REVIEWED: Not Applicable PATIENT PRESENTS WITH AN IMPLANTABLE OR ATTACHED BIOMEDICAL EQUIPMENT TECH: No RADIOLOGY DEPARTMENT: CT; Exam(s) Completed: Chest PERIPHERAL IV DATA: Not applicable SIGNED BY: RT Anna(Dereje) April 30, 2024 1:46 PM [facility] 02-28-2024 Hospital Discharg e instructions Patient Education 02/28/2024 09:50:01 Health Risks of Smoking Health Risks of Smoking Smoking tobacco is very bad for your health. Tobacco smoke contains many toxic chemicals that can damage every part of your body. Secondhand smoke can be harmful to those around you. Tobacco or nicotine use can cause many long-term (chronic) diseases. Smoking is difficult to quit because a chemical in tobacco, called nicotine, causes addiction or dependence. When you smoke and inhale, nicotine is absorbed quickly into your bloodstream through your lungs. Both inhaled and non-inhaled nicotine may be addictive. How can quitting affect me? There are health benefits of quitting smoking. Some benefits happen right away and others take time. Benefits may include: Blood flow, blood pressure, heart rate, and lung capacity may begin to improve. However, any lung damage that has already occurred cannot be repaired. Respiratory symptoms from smoking, such as nasal congestion and cough, may improve over time. Your risk of heart disease, stroke, and cancer is reduced. The overall quality of your health may improve. You may save money, as you will not spend money on tobacco products and may spend less money on smoking-related health issues. What can increase my risk? Smoking harms nearly every organ in the body. People who smoke tobacco have a shorter life expectancy and an increased risk of many serious medical problems. These include: More respiratory infections, such as colds and pneumonia. Cancer. Heart disease. Stroke. Chronic respiratory diseases. Delayed wound healing and increased risk of complications during surgery. Problems with reproduction, , and childbirth, such as infertility, early (premature) births, stillbirths, and defects. Secondhand smoke exposure to children increases the risk of: Sudden infant syndrome (SIDS). Infections in the nose, throat, or airways (respiratory infections). Chronic respiratory symptoms. What actions can I take to quit? Smoking is an addiction that affects both your body and your mind, and long-time habits can be hard to change. Your health care provider can recommend: Nicotine replacement products, such as patches, gum, and nasal sprays. Use these products only as directed. Do not replace cigarette smoking with electronic cigarettes, which are commonly called e-cigarettes. The safety of e-cigarettes is not known, and some may contain harmful chemicals. Programs and community resources, which may include group support, education, or talk therapy. Prescription medicines to help reduce cravings. A combination of two or more quit methods, which may increase the success of quitting. Where to find support Follow the recommendations from your health care provider about support groups and other assistance. You can also visit: U.S. Department of Health and Human Services: www.smokefree.gov [place] [employer]: www.freedomfromsmoking.org [place] [employer]: www.heart.org Where to find more information Centers for Disease Control and Prevention: www.cdc.gov World Health Organization: www.who.int Summary Smoking tobacco is very bad for your health. Tobacco smoke contains many toxic chemicals that can damage every part of the body. Smoking is difficult to quit because a chemical in tobacco, called nicotine, causes addiction or dependence. There are immediate and long-term health benefits of quitting smoking. A combination of two or more quit methods may increase the success of quitting. This information is not intended to replace advice given to you by your health care provider. Make sure you discuss any questions you have with your health care provider. Document Revised: 09/06/2022 Document Reviewed: 09/06/2022 [employer] Patient Education 2022 [employer]. 02/28/2024 09:36:01 Prostate Cancer Screening Prostate Cancer Screening Prostate cancer screening is testing that is done to check for the presence of prostate cancer in men. The prostate gland is a walnut-sized gland that is located below the bladder and in front of the rectum in males. The function of the prostate is to add fluid to semen during ejaculation. Prostate cancer is one of the most common types of cancer in men. Who should have prostate cancer screening? Screening recommendations vary based on age and other risk factors, as well as between the professional organizations who make the recommendations. In general, screening is recommended if: You are age 50 to 70 and have an average risk for prostate cancer. You should talk with your health care provider about your need for screening and how often screening should be done. Because most prostate cancers are slow growing and will not cause , screening in this age group is generally reserved for men who have a 10- to 15-year life expectancy. You are younger than age 50, and you have these risk factors: ?Having a father, brother, or uncle who has been diagnosed with prostate cancer. The risk is higher if your family member's cancer occurred at an early age or if you have multiple family members with prostate cancer at an early age. ?Being a male who is Black or is of [place] or sub-Saharan descent. In general, screening is not recommended if: You are younger than age 40. You are between the ages of 40 and 49 and you have no risk factors. You are 70 years of age or older. At this age, the risks that screening can cause are greater than the benefits that it may provide. If you are at high risk for prostate cancer, your health care provider may recommend that you have screenings more often or that you start screening at a younger age. How is screening for prostate cancer done? The recommended prostate cancer screening test is a blood test called the prostate-specific antigen (PSA) test. PSA is a protein that is made in the prostate. As you age, your prostate naturally produces more PSA. Abnormally high PSA levels may be caused by: Prostate cancer. An enlarged prostate that is not caused by cancer (benign prostatic hyperplasia, or BPH). This condition is very common in older men. A prostate gland infection (prostatitis) or urinary tract infection. Certain medicines such as male hormones (like testosterone) or other medicines that raise testosterone levels. A rectal exam may be done as part of prostate cancer screening to help provide information about the size of your prostate gland. When a rectal exam is performed, it should be done after the PSA level is drawn to avoid any effect on the results. Depending on the PSA results, you may need more tests, such as: A physical exam to check the size of your prostate gland, if not done as part of screening. Blood and imaging tests. A procedure to remove tissue samples from your prostate gland for testing (biopsy). This is the only way to know for certain if you have prostate cancer. What are the benefits of prostate cancer screening? Screening can help to identify cancer at an early stage, before symptoms start and when the cancer can be treated more easily. There is a small chance that screening may lower your risk of dying from prostate cancer. The chance is small because prostate cancer is a slow-growing cancer, and most men with prostate cancer from a different cause. What are the risks of prostate cancer screening? The main risk of prostate cancer screening is diagnosing and treating prostate cancer that would never have caused any symptoms or problems. This is called overdiagnosisand overtreatment. PSA screening cannot tell you if your PSA is high due to cancer or a different cause. A prostate biopsy is the only procedure to diagnose prostate cancer. Even the results of a biopsy may not tell you if your cancer needs to be treated. Slow-growing prostate cancer may not need any treatment other than monitoring, so diagnosing and treating it may cause unnecessary stress or other side effects. Questions to ask your health care provider When should I start prostate cancer screening? What is my risk for prostate cancer? How often do I need screening? What type of screening tests do I need? How do I get my test results? What do my results mean? Do I need treatment? Where to find more information The [place] [employer]: www.cancer.org [place] [employer]: www.auanet.org Contact a health care provider if: You have difficulty urinating. You have pain when you urinate or ejaculate. You have blood in your urine or semen. You have pain in your back or in the area of your prostate. Summary Prostate cancer is a common type of cancer in men. The prostate gland is located below the bladder and in front of the rectum. This gland adds fluid to semen during ejaculation. Prostate cancer screening may identify cancer at an early stage, when the cancer can be treated more easily and is less likely to have spread to other areas of the body. The prostate-specific antigen (PSA) test is the recommended screening test for prostate cancer, but it has associated risks. Discuss the risks and benefits of prostate cancer screening with your health care provider. If you are age 70 or older, the risks that screening can cause are greater than the benefits that it may provide. This information is not intended to replace advice given to you by your health care provider. Make sure you discuss any questions you have with your health care provider. Document Revised: 02/28/2022 Document Reviewed: 02/28/2022 Ur[employer] Patient Education 2022 [employer]. Follow Up Care 01/23/2024 13:31:42 With:Trino AMANDA, NADIA Menendez, URO Address: When: Unknown [facility] 02-28-2024 Note Chief Complaint Referral *Elevated PSA HPI Staff New pt referred by Aidee Ramesh NP for rising PSA level. Last seen in office 10/13/[address] Lockwood. Dx: BPH with obstruction, renal mass. S/p Cysto 06/30/14. PSA 10/29/15 - 0.25 01/18/16 - 0.39 04/17/19 - 1.01 06/29/20 - 1.18 09/29/21 - 1.7 10/03/22 - 2.4 & 21.3% 01/17/24 - 3.0 & 12.3% Fam Hx of colon cancer (brother) & Renal Cancer (father) Current Smoker States he was scheduled for renal Bx around 2016, however did not follow through with procedure, at surgeons recommendation. Occasional slight burn at beginning of urination over the last few months. States he did have microscopic hematuria a yr ago. Voiding q2-3hrs during day. Denies getting up at night. Denies straining. Strong stream in morning, weakens throughout the day. Does state his is concerned with ED. Has tried Viagra 2yrs ago, had chest pulsations, DC'd med. History of Present Illness Tests reviewed: reviewed UA, external referral records including PSA I have reviewed the previous health record information and history for this patient from Aidee Ramesh NP . I have reviewed and verified the staff HPI to be accurate for this encounter. There have been no associated fever, chills, flank pain, or blood in the urine. Denies any urinary infections since last encounter. Review of Systems PHQ Score Initial Depression Screen Score: 0 SCORE ROS - Provider Constitutional: denies weight loss, denies hot flashes. Eyes: denies eye problems. Gastrointestinal: denies nausea, denies vomiting. Cardiovascular: denies chest pain or angina. Integumentary: no dryness Musculoskeletal: denies musculoskeletal symptoms. ENMT: denies otolaryngeal symptoms. Respiratory: no shortness of breath. Heme/Lymph: denies easy bleeding tendency, denies easy bruising tendency. Psychiatric: no confusion, no anxiety. Genitourinary: See HPI. Physical Exam Vitals & Measurements HR: 75(Peripheral) RR: 16 BP: 127/85 HT: 73 in HT: 185 cm WT: 96 kg WT: 211.2 lb BMI: 28.05 General Appearance: alert, no distress, well nourished, well developed male. Head: normocephalic . Eyes: normal orbit and globe. ENMT: normal examination of external ears. Chest: symmetric chest rise, respirations non labored. Cardiovascular: regular rate and rhythm. Abdomen: soft, non distended, no tenderness Genitourinary: Flank Pain: none. Bladder: nonpalpable. Skin: warm, dry, no bruising. Psychiatric: cooperative, affect appropriate for age, normal judgement, euthymic mood. Assessment/Plan Markel is a 73 yo male new pt referred by Aidee Ramesh NP due to rising PSA. Last seen in office 10/13/[address] Lockwood. 1. Rising PSA level (R97.20: Elevated prostate specific antigen [PSA]) PSA: 10/29/15 - 0.25 01/18/16 - 0.39 04/17/19 - 1.01 06/29/20 - 1.18 09/29/21 - 1.70 10/03/22 - 2.40 & 21.3% 01/17/24 - 3.00 & 12.3% and 4.02 (F&T and total done the same day) IPSS 12. No voiding complaints. Voids wo difficulty. Fine with his current urination. Pt did not do strenuous activity prior to PSA level. PSA not very elevated for age however increased from prior level. Percent free is less favorable. Discussed options including cont to monitor PSA vs proceed with prostate MRI vs biopsy. Pros and cons of options discussed. Pt does have metal in his knee and some claustrophobia but can tolerate MRI. He would like to proceed with close monitoring. Follow up 6 mos with PSA F&T or sooner if needed. Pt understands and agrees with plan. -If PSA cont to increase, proceed with MRI prostate -Pt knows to notify office if his urination were to become bothersome. 2. Current smoker (F17.200: Nicotine dependence, unspecified, uncomplicated) Elevated risk for bladder ca. Cysto 2013 neg. No gross hematuria. Shares he had a trace amount of blood per dip a few yrs ago. Educated pt smoking can also cause bladder ca. UA today negative for blood and infection. -Pt knows to notify office if he were to experience gross hematuria or clots. 3. Kidney stone (N20.0: Calculus of kidney) 48 hr urine 04/19/16 - Low volume, elevated Ca OX super saturation. VERONIKA 2016 - 7 mm L renal stone, no hydro. Pt passed stone from 2016. No renal pain. Educated pt on dietary modifications and fluid intake for stone prevention. -High fluid intake. Add lemon. Declines surveillance at this time 4. Bilateral renal cysts (N28.1: Cyst of kidney, acquired) BI renal simple cysts stable 2017 per report. Fam Hx of Renal Cancer (father). 5. Erectile dysfunction (N52.9: Male erectile dysfunction, unspecified) JONN 7. Tried Viagra one, caused chest palpitations. Discussed risks/benefits of ED options including try other oral med, pumps, and implant. Pt is not interested in trying other oral ED meds due to SEs from viagra. Would like to try JONAH. -Try JONAH. Educational pamphlet provided. 6. Family history of prostate cancer (Z80.42: Family history of malignant (more content not included)... [facility] Comment on above: Result Comment: Elec tronically Signed By: Julita Jameson MD\.br\Date and Time Signed: 02/28/24 10:15 EDT\.br\Electronically Co-Signed By: Yumiko Mims\.br\Date and Time Co-Signed: 02/28/24 10:11 EDT 11-01-2023 History of Presen t illness Narrative AMBULATORY TELEPHONE VISIT Markel Riggins has consented to this telephone encounter. Persons Present: patient Chief Complaint/Reason: surveillance HPI: he says he is keeping motivated , no major complaints or medical issues brought up today in our conversation. 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 S/p SBRT to the RUL 34 Gy in 1 fx completed on 10/18/22 Data Reviewed: Most recent imaging I personally reviewed and compared his current imaging to previous imaging. I concur with the radiology report. 10/20/2023 4:32 PM - Radiology, Oru In Impression IMPRESSION: 1. Evolving post radiation fibrotic changes in the RIGHT upper lobe. New low-density medium sized RIGHT pleural effusion, of uncertain etiology. 2. Interval resolution of previously noted bronchiolitis in the RIGHT lower lobe. Few small nodules in the LEFT lung are stable since the prior exam. No new or enlarging pulmonary nodules are noted. 3. No thoracic lymphadenopathy. 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 Total Time Spent: 10 minutes Jaden Whipple MD documented in this encounter [facility] 11-01-2023 Note HNO ID: [id number] Author: JADEN WHIPPLE MD Service: ? Author Type: Physician Type: Progress Notes Filed: 11/02/2023 11:02 Note Text: AMBULATORY TELEPHONE VISIT Markel Riggins has consented to this telephone encounter. Persons Present: patient Chief Complaint/Reason: surveillance HPI: he says he is keeping motivated , no major complaints or medical issues brought up today in our conversation. 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 S/p SBRT to the RUL 34 Gy in 1 fx completed on 10/18/22 Data Reviewed: Most recent imaging I personally reviewed and compared his current imaging to previous imaging. I concur with the radiology report. 10/20/2023 4:32 PM - Radiology, Oru In Impression IMPRESSION: 1. Evolving post radiation fibrotic changes in the RIGHT upper lobe. New low-density medium sized RIGHT pleural effusion, of uncertain etiology. 2. Interval resolution of previously noted bronchiolitis in the RIGHT lower lobe. Few small nodules in the LEFT lung are stable since the prior exam. No new or enlarging pulmonary nodules are noted. 3. No thoracic lymphadenopathy. 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 Total Time Spent: 10 minutes Jaden Whipple MD [facility] 10-20-2023 History of Presen t illness Narrative Radiology Service Progress Note PATIENT NAME: Markel Riggins DATE OF SERVICE: October 20, 2023 TIME: 8:28 AM PATIENT IDENTITY VERIFICATION COMPLETED USING TWO (2) IDENTIFIERS: Name and Date of confirmed by patient verbally. FALL SCREENING: Has the patient had 2 falls in the last year or 1 fall with injury or currently using an Ambulatory Assistive Device (Walker, Cane, Wheelchair, Crutches, etc.)? No PATIENT GENDER DATA: Male PATIENT RELEVANT IMPLANT DATA REVIEWED: Not Applicable PATIENT PRESENTS WITH AN IMPLANTABLE OR ATTACHED BIOMEDICAL EQUIPMENT TECH: No RADIOLOGY DEPARTMENT: CT; Exam(s) Completed: Chest PERIPHERAL IV DATA: Not applicable SIGNED BY: RT Guy(R) October 20, 2023 8:28 AM documented in this encounter [facility] 10-20-2023 Note HNO ID: [id number] Author: JOSH FIELDS RT(R) Service: ? Author Type: Technologist Type: Progress Notes Filed: 10/20/2023 08:28 Note Text: Radiology Service Progress Note PATIENT NAME: Markel Riggins DATE OF SERVICE: October 20, 2023 TIME: 8:28 AM PATIENT IDENTITY VERIFICATION COMPLETED USING TWO (2) IDENTIFIERS: Name and Date of confirmed by patient verbally. FALL SCREENING: Has the patient had 2 falls in the last year or 1 fall with injury or currently using an Ambulatory Assistive Device (Walker, Cane, Wheelchair, Crutches, etc.)? 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 S/p SBRT to the RUL 34 Gy in 1 fx completed on 10/18/22 INTERVAL HISTORY: Markel presents today 3 months after completion of SBRT to the RUL metachronous lung lesions. For the past month he has been coughing more and feeling very fatigued. Had night sweats about 3 weeks ago and severe coughing fits. His states he had low oxygen at home <90%. He did not seek medical attention and was taking OTC medications without much relief. He has felt some improvement the past 5 days- cough has reduced in frequency and severity. He states sometimes it is a dry cough other times the mucus gets stuck in his throat. He has never had a fever but did not take his temperature when he was having night sweats. CT Chest 01/19/23 IMPRESSION: -Decreased size of the two treated right upper lobe with evolving surrounding changes of radiation pneumonitis with new mild RIGHT pleural thickening. -New infectious/inflammatory findings in the RIGHT lower lobe, presumably secondary to aspiration given the presence of luminal opacification of the RIGHT lower lobe bronchi. -No thoracic lymphadenopathy. ALLERGIES No Known Allergies MEDICATIONS: albuterol (PROVENTIL) 2.5 mg /3 mL (0.083 %) nebulizer solution Use 3 mL via nebulizer three times daily as needed for wheezing/shortness of breath. Inhale over 5-15 minutes zcaehtqwyl-ljtztkez-nxlwmddqhn (BREZTRI AEROSPHERE) 160-9-4.8 mcg/actuation HFA aerosol inhaler Inhale 2 Puffs as instructed twice daily. aspirin (ASPIR-81 ORAL) Take by mouth. albuterol HFA (PROVENTIL HFA, VENTOLIN HFA) 90 mcg/actuation inhaler Inhale 2 Puffs as instructed every 6 hours as needed. amLODIPine (NORVASC) 5 mg tablet Take 5 mg by mouth. atorvastatin (LIPITOR) 20 mg tablet Take 20 mg by mouth. metFORMIN (GLUCOPHAGE) 500 mg tablet Take 2 tablets by mouth. REVIEW OF SYSTEMS: See HPI PHYSICAL EXAM: VS: BP 117/60 Pulse 93 Temp 36.6 C (97.8 F) (Temporal) Resp 20 Wt 117.6 kg (259 lb 3.2 oz) SpO2 93% BMI 35.15 kg/m KPS: 80 General Appearance: Alert and oriented. No acute distress. HEENT: NCAT. Sclera anicteric. EOMI. Neck: Normal ROM. Chest: No respiratory distress. Heart: No cyanosis. Abdomen: Nondistended. Musculoskeletal: No edema. Normal ROM in extremities. Neuro: Speech fluent. No focal deficits. Skin: No rashes noted TOXICITY ASSESSMENT CTC3: Yes. Pneumonitis: grade 1 (Asymptomatic, radiographic findings only), Date: 01/19/2023 . Greater than 90 days since last treatment. ASSESSMENT/PLAN: Markel has been having moderate-severe coughing for the past month with corresponding findings in the right lower lobe suggestive of infectious process. Unlikely related to radiation pneumonitis. Fortunately, his symptoms have started to improve over the past few days. Will prescribe medrol dose pack to help with the likely post infectious cough. CT demonstrates decreased size of the two treated right upper lobe with evolving surrounding changes of radiation pneumonitis. We will see him again in 3 months for followup with CT Chest. Yessi Martins MD Radiation Oncology Resident PGY-2 [facility] STAFF PHYSICAN NOTE OF PERSONAL INVOLVEMENT IN CARE I have personally participated in the delacruz components of the case including a review of imaging and agree with the above findings Jaden Whipple MD cc: Aidee Ramesh, GROOMING ASSISTANT ([facility]) [address] [place] [address] MICHELE Quesada MD documented in this encounter [facility] 01-19-2023 History of Presen t illness Narrative Radiology Service Progress Note PATIENT NAME: Markel Riggins DATE OF SERVICE: January 19, 2023 TIME: 10:01 AM PATIENT IDENTITY VERIFICATION COMPLETED USING TWO (2) IDENTIFIERS: Name and Date of confirmed by patient verbally and Name and Date of confirmed by identification band. FALL SCREENING: Has the patient had 2 falls in the last year or 1 fall with injury or currently using an Ambulatory Assistive Device (Walker, Cane, Wheelchair, Crutches, etc.)? No PATIENT GENDER DATA: Male PATIENT RELEVANT IMPLANT DATA REVIEWED: Yes RADIOLOGY DEPARTMENT: CT; Exam(s) Completed: Chest PERIPHERAL IV DATA: Not applicable SIGNED BY: Tonia Mitchell RT(R) January 19, 2023 10:01 AM documented in this encounter [facility] 01-16-2023 History of Presen t illness Narrative PULM FUNCTION SMARTBLOCK: Provider: Jaden Whipple MD Assisting Tech: Nikole Smith RRT Spirometry: 1 DLCO: 1 documented in this encounter [facility] 10-18-2022 History of Presen t illness Narrative Radiation Oncology - On Treatment Review (OTR) Note PATIENT NAME: Markel Riggins PATIENT DIAGNOSIS High risk operable [by PFTs] 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 PROTOCOL: no COURSE: definitive and SBRT (stereotactic body radiotherapy) AREA TREATED: RUL lung Current dose: 3400 cGy in 1 fx Planned dose: 3400 cGy in 1 fx SUBJECTIVE: Mr. Riggins presents for OTR after completing his/h single fraction treatment. He states that he has trouble lying on his back for a long period of time, but was able to tolerate SBRT well. He denies any new or worsening physical complaints or concerns today. PHYSICAL EXAM: BP 157/60 Pulse 76 Temp 36.4 C (97.5 F) (Oral) Resp 20 Wt 118 kg (260 lb 3.2 oz) SpO2 94% BMI 35.29 kg/m Area Assessed: Chest KPS: 80 General Appearance: Alert and oriented. No acute distress. Chest: No respiratory distress. IMAGING/LAB RESULTS: None TOXICITY ASSESSMENT (CTC v4.0): Fatigue: grade 0 - No symptoms Weight loss: grade 0 - No weight loss Nausea:Grade 0 - No Symptoms Radiation Dermatitis:grade 0 - No symptoms Dysphagia: grade 0 - No symptoms Esophageal Pain: Grade 0 - No symptoms Dyspnea: grade 0 (No symptoms) ASSESSMENT/PLAN: Clinically stable. No signs of toxicity. Acute and delayed side effects reviewed. The patient has completed radiotherapy and will be seen for follow up with Dr. Whipple in [address] chest wo contrast and pft/dlco. Pft's to be scheduled during the week prior to follow up at [facility] or [place] per request. Medication started: No Soco Shelley CNP STAFF NOTE: I have personally participated in the delacruz components of the case and agree with the above findings: Treatment chart checked: YES Patient treatment site reviewed and verified: YES Setup images reviewed and current: YES ASSESSMENT/PLAN: Clinically stable. No signs of toxicity. The patient has completed radiotherapy and will be seen in follow-up in ~12 weeks. Acute and delayed side effects reviewed. 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 CONCURRENT THERAPY: None DELIVERED DOSE: The RUL PTV contained 2 lesions treated with one isocenter and received a total dose of 3400 cGy in 1 fraction at 3400cGy/fraction using 6 FFF MV photons with SBRT coplanar VMAT technique prescribed to the 81.0% IDL. CBCT used for IGRT. Abdominal compression belt used for motion management. ELAPSED TIME: 0 days. TOLERANCE: tolerated treatment well. No toxicity reported. RESPONSE: To be assessed in outpatient clinic. REMARKS: The patient will be seen again in follow up after chest CT. Fellow Physician Cam Carter M.D. Staff Physician Jaden Whipple M.D 34:42 PM Electronically Signed cc: William Salazar MD, [facility] documented in this encounter [facility] 10-05-2022 Nurse Note Radiation Therapy - Patient Education Note PATIENT NAME: Markel Riggins PATIENT October 05, 2022 [facility] FACILITY/LOCATION: [facility] READINESS TO LEARN Cognitive Ability: Alert and oriented Motivation to learn: Interested Family Support: None - Unavailable/disinterested Instruction provide to: Patient Patient learns best by: Individual Instruction Written Instruction - Hand-outs Verbal Instruction Factors effecting learning: None Physical limitations effecting learning: None LEARNING RESPONSE Diagnosis: Pt simulated today for radiation therapy to right lung. Education Topic/Teaching Points: Radiation therapy, Side effects, and OTV: Method of instruction: Individual instruction Written instruction - handouts Verbal instruction Patient /Family response: Patient verbalized understanding of radiation treatments, side effects, OTV, and transportation. Follow-up plan: Patient instructed to call with any further issues Supplemental material: Informational handouts on SBRT lung. Referral (recommendation): None, Pt denied need for social work, van service, and set staff fitter. Was KP approved? KP completed on 08/13/22 scored 6 distress. Signed by: Naomi Garber LPN documented in this encounter [facility] 10-05-2022 History of Presen t illness Narrative Today seen in clinic for pre-CT simulation consent. Doing relatively well, no new complaints. Planned for SBRT to right lung two lesions as 34Gy/1Fx. The logistics of radiation were discussed including acute, subacute and chronic toxicities.The risks, benefits, alternatives, consent and personnel of radiation therapy were fully discussed with the patient.Consent was obtained. Cam Carter MD. Radiation Oncology Fellow. Reviewed and corroborated Jaden Whipple MD documented in this encounter [facility] 10-05-2022 History of Presen t illness Narrative MARKEL RIGGINS [id number] 10/05/2022 [facility] Department of Radiation Oncology [facility] RADIATION ONCOLOGY SIMULATION NOTE DATE OF SIMULATION: 10/05/2022 MACHINE: CT Simulator DIAGNOSIS: High risk operable [by PFTs] 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 AREA: RUL PATIENT POSITION: Supine. BLOCKS: MLC will be used. FIXATION DEVICE: A time-out was conducted and recorded by the therapist. The patient was immobilized in a custom created bodyfix device with abdominal compression (belt) adjusted to limit respiratory excursion. CT images were taken during quiet breathing, full inhale, full exhale, as well as a series of 4D CT images in order to characterize tumor motion during the respiratory cycle. 4DCT images were reviewed to assess respiratory excursion and immobilization was judged to be adequate. The patient tolerated the procedure without difficulty. Images were transferred to dosimetry for initiation of treatment planning. Beam arrangement and treatment dose will be determined during planning. Electronically Signed JADEN WHIPPLE M.D. 2:17 PM documented in this encounter [facility] 10-05-2022 History of Presen t illness Narrative MARKEL RIGGINS [id number] 10/05/2022 [facility] Department of Radiation Oncology Treatment Planning Note For reasons stated in the consult note, Markel Riggins is a candidate for radiation therapy. Based on review and interpretation of the relevant diagnostic studies together with the exam findings, Markel Riggins was simulated on 10/05/2022 at which time the target volume and/or requisite french were delineated, as indicated in the simulation note, to be treated according to the prescription. An ITV was created from all the phases of respiratory motion captured by the 4DCT image sets. Motion management allowed for design of patient specific planning target volume and reduced the radiation exposure to normal tissues. The treatment target and organs at risk were contoured on the simulation scan. Special consideration to these and other structures was given in light of the potential for increased toxicities of treatment of multiple sites concurrently/ stereotactic body radiation therapy (SBRT). Pulmonary function testing was reviewed. After reviewing multiple treatment plans with dosimetry, the best plan was approved to deliver the prescribed course of radiation to the target area using inverse planning to allow for the best isodose distribution, treating to the 81% isodose line with 6MVFFF and 2 french. Custom MLC s for IMRT were the treatment devices used to shape/modify the beams. Limiting dose to normal tissue was confirmed upon review of the calculated dose volume histogram. IMRT planning was used because it best met the dose/volume constraints for the organs at risk for this patient, better than what could be achieved using conventional or 3D planning. The specific dose requirements for the PTV, organs at risk and dose-volume histograms are contained in this treatment plan and/or elsewhere in the medical record. A completed summary of this plan dated 10/10/2022 incorporated herein by reference includes dose, beam arrangements, energy, blocking, isodose distribution, and/or ports and DVH. Electronically Signed Jaden Whipple M.D. 32:38 PM documented in this encounter [facility] 09-26-2022 Miscellaneous Notes Called pt to inform of the bronchoscopy results 2:46 PM 09/26/22 Clear nodes and atypical from lesions. D/W Dr Whipple as well. Plan on presenting at [facility] tomorrow and then moving forward, likely XRT. A detailed discussion followed, all questions were answered and the patient voiced understanding. Ihsan Shah MD documented in this encounter [facility] 09-21-2022 Nurse Note POST OP LEARNING RESPONSE INSTRUCTION PROVIDED TO: Patient and family member METHOD OF INSTRUCTION: Individual instruction Written instruction - handouts Verbal instruction PATIENT / FAMILY RESPONSE: Verbalizes understanding of: POST-PROCEDURE INSTRUCTIONS-Correct actions to take to reduce post procedure complications FOLLOW-UP PLAN: Complete - No need for follow-up SUPPLEMENTAL MATERIAL: Procedure discharge instructions REFERRAL (RECOMMENDATION): None Electronically Signed By: Arcelia Siddiqui RN In Department: ADMITTING AMBULATORY PATIENT EDUCATION TOPIC: Survival Skills: Bronchoscopy instruction READINESS TO LEARN COGNITIVE ABILITY: Alert and oriented MOTIVATION TO LEARN: Interested FAMILY SUPPORT: Unable to assess - Family not present INSTRUCTION PROVIDED TO: Patient PATIENT LEARNS BEST BY: Verbal Instruction FACTORS AFFECTING LEARNING: None PHYSICAL LIMITATIONS AFFECTING LEARNING: None LEARNING RESPONSE DIAGNOSIS: pulmonary disease METHOD OF INSTRUCTION: Verbal instruction PATIENT / FAMILY RESPONSE: Verbalizes understanding of: PRE-PROCEDURE INSTRUCTIONS-Correct action to take to follow pre-procedure instructions FOLLOW-UP PLAN: Complete - No need for follow-up Patient instructed to call with any further issues SUPPLEMENTAL MATERIAL: None REFERRAL (RECOMMENDATION): None Electronically Signed By: Medardo Queen RN In Department: ADMITTING documented in this encounter [facility] 09-20-2022 History of Presen t illness Narrative Radiology Service Progress Note PATIENT NAME: Markel Riggins DATE OF SERVICE: September 20, 2022 TIME: 11:35 AM PATIENT IDENTITY VERIFICATION COMPLETED USING TWO (2) IDENTIFIERS: Name and Date of confirmed by patient verbally and Name and Date of confirmed by identification band. FALL SCREENING: Has the patient had 2 falls in the last year or 1 fall with injury or currently using an Ambulatory Assistive Device (Walker, Cane, Wheelchair, Crutches, etc.)? Yes, Patient High Risk for Falls What interventions were put in place to prevent falls during this visit? Increased Observations by Caregivers PATIENT GENDER DATA: Male PATIENT RELEVANT IMPLANT DATA REVIEWED: Yes RADIOLOGY DEPARTMENT: CT; Exam(s) Completed: Chest PERIPHERAL IV DATA: Not applicable SIGNED BY: RT Thony(R) September 20, 2022 11:35 AM documented in this encounter [facility] 09-20-2022 History of Presen t illness Narrative Pulmonary Medicine Progress Note: Markel Riggins [id number] Chief Complaint: Abnormal lung imaging Reason for Visit: Preoperative evaluation HPI: Markel Riggins is a 72 year old male smoker with a history of COPD, DM, HTN, HLD, melanoma, and malignant neoplasm RUL of the lung, stage IA3, s/p SBRT completed in December 2021, who presents today for preoperative evaluation. Surveillance CT chest in July 2022 revealed and enlarging RUL nodules x 2, one superiorly measuring 13 x 11 mm and the other more inferiorly measuring 16 x 15 mm. Both nodules rapidly enlarged in sized when compared to imaging from April 2022. A PET was done on 09/01/22 showed again the two enlarging RUL lung nodules that are hypermetabolic. These nodules are concerning for metastatic disease. Patient has been referred to IP for further evaluation of nodules that are concerning for metastatic disease. Chute Boss: William Salazar MD/ Vesta Willard APRN. GROOMING ASSISTANT Referring Provider: Josh Whipple MD Bronch request placed by: William Salazar MD On CPAP at hs. SOB with exertion, walking. He is able to complete all ADL. He is not overly active, on couch during the day. He is using Bretzi 2x/day, albuterol nebs - once a day. Last used rescue inhaler months ago. He complaints of thick mucus, difficult to bring up, gets stuck in throat. Coughs, trying to bring up mucus. He saw his PCP last week who told him to use Mucinex but has not picked it up at store yet. No prior issues with anesthesia. Stiff neck, minimal abduction of head. No dysphagia, weight/appetite are stable. No hx cardiac issues per patient/. No LA, arrhythmias, stents, CVA, embolic events. Does have BLE edema most days. L knee replacement. Current smoker. Was 1 ppd, now down to 1 pack over 3 days. 49 pack year history. PAST MEDICAL HISTORY Diagnosis Date COPD (chronic obstructive pulmonary disease) (HCC) Diabetes (HCC) High cholesterol HTN (hypertension) Lung nodule 12/2020 Melanoma (HCC) left ear FAMILY HISTORY Problem Relation Age of Onset Heart disease Father other (kidney cancer) Father Cancer Sister Prostate Cancer Brother ALLERGIES No Known Allergies Social History Tobacco Use Smoking status: Every Day Packs/day: 1.00 Years: 49.00 Pack years: 49.00 Types: Cigarettes Start date: 1971 Smokeless tobacco: Never Tobacco comments: Currently smoking 0.5 pack a day. 09/20/22 - smokes 1 pack over 3 days. Substance Use Topics Alcohol use: Not Currently Drug use: Not Currently albuterol (PROVENTIL) 2.5 mg /3 mL (0.083 %) nebulizer solution Use 3 mL via nebulizer three times daily as needed for wheezing/shortness of breath. Inhale over 5-15 minutes obyfstmtcz-nioavhbs-rhdbvplawu (BREZTRI AEROSPHERE) 160-9-4.8 mcg/actuation HFA aerosol inhaler Inhale 2 Puffs as instructed twice daily. aspirin (ASPIR-81 ORAL) Take by mouth. albuterol HFA (PROVENTIL HFA, VENTOLIN HFA) 90 mcg/actuation inhaler Inhale 2 Puffs as instructed every 6 hours as needed. amLODIPine (NORVASC) 5 mg tablet Take 5 mg by mouth. atorvastatin (LIPITOR) 20 mg tablet Take 20 mg by mouth. metFORMIN (GLUCOPHAGE) 500 mg tablet Take 2 tablets by mouth. Labs: Hemoglobin (g/dL) Date Value 05/17/2022 15.4 02/05/2021 14.9 Hematocrit (%) Date Value 05/17/2022 50.4 02/05/2021 47.4 WBC (k/uL) Date Value 05/17/2022 10.96 02/05/2021 9.31 Platelet Count (k/uL) Date Value 05/17/2022 204 02/05/2021 224 CMP: Glucose 184 05/17/2022 BUN 14 05/17/2022 Creatinine 0.92 05/17/2022 Sodium 140 05/17/2022 Potassium 4.8 05/17/2022 Chloride 100 05/17/2022 CO2 30 05/17/2022 Protein, Total 7.4 05/17/2022 Albumin 4.4 05/17/2022 Calcium 9.8 05/17/2022 Alkaline Phosphatase 82 05/17/2022 Bilirubin, Total 0.3 05/17/2022 AST 14 05/17/2022 ALT 21 05/17/2022 Imaging: PET (09/01/22) RESULT: Note- The SUV value is for reference purposes. Due to technical factors and uncontrolled variables, caution is advised when using SUV to differentiate malignant from nonmalignant processes, or to assess follow-up/treatment response. Reference max SUV: Mediastinum blood pool activity: max SUV 3.2 Background liver activity: max SUV 3.1 HEAD AND NECK: No pathologically enlarged or hypermetabolic cervical lymphadenopathy. Uptake in the oral cavity, tonsils, salivary glands, extraocular muscles is likely physiologic. limited evaluation of the intracranial structures due to the physiologic mark matter uptake. CHEST: Devices/lines and tubes: None Lungs and tracheobronchial tree: Redemonstration of predominantly groundglass mildly FDG avid (max SUV of 2.7) opacities within the lateral aspect of the right upper lobe with treated right upper lobe nodule measuring 0.8 x 0.8 cm with central lucency (7:108), similar to prior CT chest 08/12/2022 likely representing post radiation changes. Compared to prior PET/CT there has been new interval development of 2 right upper lobe lung nodules, for reference: * 1.8 x 1.3 cm nodule (7:103), with max SUV of 12.6 * 1.5 x 1.6 cm nodule (7:111) with max SUV of 12.6. No hypermetabolic nodules or consolidation. Since FDG PET may have decreased sensitivity for pulmonary nodules <0.8 cm, follow-up chest CT would be suggested, as clinically indicated. Pleura and pericardium: No pleural effusion.No pericardial effusion Mediastinum and Lymph nodes: No hypermetabolic axillary, hilar, or mediastinal lymphadenopathy. Coronary atherosclerosis. Aortic atherosclerosis. Chest wall: No hypermetabolic lesion ABDOMEN AND PELVIS: Physiologic uptake seen in the and GI tracts. Liver: Mildly heterogeneous uptake, no definite hypermetabolic lesion. Biliary: No bile duct dilation. Gallbladder is unremarkable. Spleen: No splenomegaly or FDG avidity. Pancreas: No abnormal FDG avidity or duct dilation. Adrenals: No FDG avid lesion. Kidneys: No obstructing calculi, hydronephrosis, or hypermetabolic lesions. . Bilateral renal cysts. Non-FDG avid exophytic lesion right kidney. GI tract: No dilation or wall thickening. Lymph nodes: No abdominal or pelvic hypermetabolic lymphadenopathy. Mesentery/Peritoneum: No ascites or hypermetabolic mass. Vasculature: Vascular patency cannot be assessed due to lack of IV contrast. There are atherosclerotic calcifications without aneurysmal dilation. Pelvis: No hypermetabolic mass, ascites or fluid collection. Scattered activity in the rectosigmoid regions can be physiological or inflammatory. Mild focus of uptake in the right posterior prostatic region (Max SUV 3.7). Correlation with PSA suggested. Abdominopelvic wall: No hypermetabolic lesion MUSCULOSKELETAL: There are no hypermetabolic osseous lesions. Parts Consultant (topogram) images: No additional findings. Impression IMPRESSION: Head and Neck: * No hypermetabolic foci Chest: * interval development of 2 new hypermetabolic nodules within the right upper lobe compared to prior PET/CT concerning for metastatic disease. * Evolving postradiation changes within the right upper lobe with mild FDG activity * No hypermetabolic thoracic lymphadenopathy. Abdomen and pelvis: * No evidence of FDG avid metastases. * Mild hypermetabolic focus in the right posterior prostatic region. Correlation with PSA suggested. Musculoskeletal: * No neoplastic hypermetabolic lesions CT Chest (08/12/22) RESULT: Limitations: Minimal cardiac pulsation related motion noted. Parts Consultant (topogram) images: No additional findings. Lines, tubes, and devices: None. Lung parenchyma: On lung windows, mostly clear central airways aside from dependent retained secretions within the right main bronchus suspected on image 89 series 4. Minimal-mild bronchial wall thickening noted, right worse than left. Heterogeneous opacities noted within the right upper lobe, increased since 05/17/2022, most likely related to evolving post radiation pneumonitis/early fibrosis, with treated nodule estimated to be about 10 x 6 mm, previously about the same with central intrinsic lucency. However, there are 2 enlarging nodules, one located superiorly on image 48 measuring 13 x 11 mm, and more inferiorly on image 62 measuring 16 x 15 mm, rapidly enlarging in size compared to 05/17/2022 exam, concerning for aggressive metastatic nodules. Metachronous neoplasms less likely. Centrilobular and paraseptal emphysematous lucencies, upper lobe predominant noted. Mild passive atelectasis of the right lower lobe visible posterolaterally and inferiorly noted. Punctate peripheral/subpleural lingular level nodule noted on image 124. Pleural space: Interval development of trace right pleural effusion layering posteriorly (of low-attenuation). No pleural nodules noted. No pneumothorax. Lower neck, lymph nodes, and mediastinum: Visualized portions of the thyroid appear stable, with tiny left medial nodule. No progressive axillary or supraclavicular lymphadenopathy meeting size criteria noted. Fatty bilateral, benign axillary lymph nodes noted. Intrathoracically, no progressive intrathoracic lymphadenopathy meeting size criteria noted. Calcified mediastinal and right hilar/perihilar lymph nodes presumably related to prior granulomatous infection. Heart, pericardium, and thoracic vessels: Focal atherosclerotic calcifications of the aorta and its branches noted. Pulmonary trunk is 32 mm, mildly dilated. Normal caliber ascending aorta noted. Normal heart size noted. No pericardial effusion. Prominent fat in the interatrial septum is suggestive of lipomatous hypertrophy. Multivessel focal coronary artery calcifications involving LAD, diagonal, circumflex and right coronary arteries. Aortic root calcifications with possible focal valve leaflet calcifications. Stable esophagus with some endoluminal gas. Bones and soft tissues: Chest wall soft tissues are stable with intramuscular lipoma suspected involving right infraspinatus muscle and minimal asymmetric retroareolar glandular tissues. On bone window images, degenerative changes of the spine noted. Osteopenia. Upper abdomen: Focal splenic calcified granulomata noted. Vague low-attenuation changes of the right hepatic lobe could be associated with regional hepatic steatosis. Low-attenuation lesion of the right inferior hepatic lobe, image 240 could represent volume averaging artifact with adjacent right renal cysts, incompletely evaluated, but visible on 11/29/2021 PET/CT exam. Nonspecific left perinephric fat stranding noted. 10 mm (short axis) portacaval level lymph node noted on image 236 series 3, similar to 11/29/2021 PET/CT exam (non-FDG avid). Impression IMPRESSION: 1. Evolving post radiation changes of the right upper lobe with treated nodule redemonstrated. However, rapidly enlarging right upper lobe nodules x2 are noted, highly concerning for rapidly growing metastatic nodules (aggressive growth). Short 2. No enlarging lymph nodes noted. Stable borderline (11 mm) subaortic level lymph node. Old granulomatous disease. 3. Emphysema. REVIEW OF SYSTEMS GENERAL: No weight loss, malaise or fevers HEENT: Negative for frequent or significant headaches, No changes in hearing or vision, no nose bleeds or other nasal problems NECK: Negative for lumps, goiter, pain and significant neck swelling RESPIRATORY: See HPI CARDIOVASCULAR: See HPI GI: No nausea, vomiting, or diarrhea : No history of dysuria, frequency or incontinence MUSCULOSKELETAL: Negative for joint pain or swelling, back pain or muscle pain SKIN: Negative for lesions, rash, and itching PSYCH: Negative for sleep disturbance, mood disorder and recent psychosocial stressors, See HPI HEMATOLOGY/LYMPHOLOGY: Negative for prolonged bleeding, bruising easily or swollen nodes ENDOCRINE: Negative for cold or heat intolerance, polyuria, polydipsia and goiter NEURO: No history of headaches, syncope, paralysis, seizures or tremors OR 10 systems reviewed and all other negative except as documented in the HPI BP 136/59 Pulse 85 Temp 36 C (96.8 F) Resp 16 SpO2 94% General appearance: Somewhat wan and fatigued appearing, alert, in no acute distress, well-hydrated, well nourished. Protuberant abdomen. Accompanied by his . Skin: Skin color, texture, turgor normal, no suspicious rashes or lesions of visible skin Head: Normocephalic, no masses, lesions, tenderness or abnormalities Eyes: Anicteric sclera. Pupils are equally round and reactive to light. Extraocular movements are intact. Nose/Sinuses/Oropharynx: Face mask in place due to COVID precautions Neck: Limited abduction of head, limited left lateral rotation, no adenopathy; thick Back: Normal exam Lungs: + rhonchi in RUL, some mild scattered expiratory wheezing, bibasilar rales. Heart: RRR without murmur, gallop, or rubs. No ectopy Extremities: No deformities, edema, skin discoloration, clubbing or cyanosis. Good capillary refill. Musculoskeletal: No joint swelling, deformity, or tenderness Peripheral pulses: Normal Neuro: Gait normal. Sensation grossly intact. Assessment/Plan: 72 year old male smoker with a history of COPD, DM, HTN, HLD, melanoma, and malignant neoplasm RUL of the lung, stage IA3, s/p SBRT completed in December 2021, with rapidly enlarging PET avid RUL nodules x 2, concerning for metastatic disease. (Z01.818) Preoperative examination (R91.8) Abnormal finding on lung imaging (C34.11) Malignant neoplasm of upper lobe of right lung (HCC) (J44.9) Chronic obstructive pulmonary disease, unspecified COPD type (HCC) (primary encounter diagnosis) (F17.210) Nicotine dependence, cigarettes, uncomplicated I spent a total of 30 minutes on the date of the service which included preparing to see the patient, [id number] patient care, completing clinical documentation, obtaining and/or reviewing separately obtained history, counseling and educating the patient/family/caregiver, ordering medications, tests, or procedures, communicating with other HCPs (not separately reported), independently interpreting results (not separately reported), communicating results to the patient/family/caregiver and care coordination (not separately reported) -On preoperative examination, there are no clear contraindications for the patient to undergo general anesthesia. Request bedside check of blood glucose prior to procedure, same day. -Not on anticoagulation/anti-platelet therapy. -Risks, benefits, alternatives and personnel discussed with patient. All questions answered. -NPO as of midnight on the day before the planned procedure. -Plan to proceed for airway evaluation and Navigational/Robotic bronchoscopy + Staging EBUS under GA, interventions to be performed as needed/indicated during the time of the procedure. -Pending preoperative testing (COVID test, blood work, EKG, and CT chest). He will proceed for testing following this visit. - Patient instructed to use his nebulizer/inhalers tonight and in AM, prior to procedure, in order to optimize his lung function. - Reinforced PCP recommendation for Mucinex to help to loosen his pulmonary secretions. May add Acapella flutter valve; printout given to patient as well as teaching regarding usage and indications. Sumaya Peña PA-C 09/20/22 10:30 AM CC: Ihsan Shah MD documented in this encounter [facility] 09-08-2022 Miscellaneous Notes 09/08 Spoke with Markel Scheduled bronch 09/21/2022 Covid,EKG, CT and Labs 09/20 documented in this encounter [facility] 09-06-2022 Note HNO ID: [id number] Author: William Salazar MD Service: ? Author Type: Physician Type: Progress Notes Filed: 09/07/2022 11:49 AM Note Text: Bronchoscopy Request: Cleared for scheduling September 07, 2022 Please schedule patient for the following: Staging EBUS Navigation Bronchoscopy (Illumisite) to RUL nodule Robotic Bronchoscopy Auris (ARSEN/SS/MM/FA) Robotic Bronchoscopy ION (TG/CG/LL/AM/MA/SL/SS/ARSEN/SG) HANDP with established patient Clinical Trial Candidate: No Visit and Bronchoscopy: Different Day Time Allotment/Tier: If Robot AND Staging EBUS, TIER 3: 3 HOUR; Otherwise (Illumisite + Staging EBUS), TIER 2: 2 HOUR Physician Performing Bronchoscopy: If ION Robot, TG, SS, ARSEN CG, MA, SG, SL, Blue or [place]; If Robot ([place]), MM, FA, ARSEN, SS, CG, SL or LL; Otherwise, Bronch A, B or C Anesthesia Type: General Special Requests: None Needs Labs: Yes, CBC and CMP Needs EKG: Yes Needs CT prior: Yes EMN Bronchoscopy Protocol Chest CT Does the pt need cardiac clearance? No Is he/she on anticoagulants/anti-plt therapy? No Nursing Considerations: (ie: chcf, TB, respiratory isolation, etc.) none Diagnosis/Reason for Bronchoscopy: lung nodules, lung cancer Referred by: Dr Josh Whipple Reviewed by: MD William Navarro MD September 06, 2022 3:33 PM Addendum: CBC with diff: WBC 10.96 05/17/2022 RBC 5.31 05/17/2022 Hemoglobin 15.4 05/17/2022 Hematocrit 50.4 05/17/2022 MCV 94.9 05/17/2022 MCH 29.0 05/17/2022 MCHC 30.6 05/17/2022 RDW-CV 13.1 05/17/2022 Platelet Count 204 05/17/2022 MPV 11.3 05/17/2022 Potassium Date Value Ref Range Status 05/17/2022 4.8 3.7 - 5.1 mmol/L Final 02/05/2021 4.6 3.7 - 5.1 mmol/L Final Sodium Date Value Ref Range Status 05/17/2022 140 136 - 144 mmol/L Final 02/05/2021 144 136 - 144 mmol/L Final BUN Date Value Ref Range Status 05/17/2022 14 9 - 24 mg/dL Final Creatinine Date Value Ref Range Status 05/17/2022 0.92 0.73 - 1.22 mg/dL Final [facility] 09-06-2022 Miscellaneous Notes Pulmonary Cancer Referral Request: Dr. Salazar has reviewed/approved case by email w Dr. Whipple. Request request bronch A or B service. Patient Name: Markel Riggins Please schedule patient for the following: New consultation for: Staging Bronchoscopy and navigation/robotic bronchoscopy for biopsy attempt. Will require CT chest super D format/navigation per Dr. Salazar. Reason for referral: Lung nodule- undiagnosed Referred to: Dr. Salazar Surgery Planned: No Imaging: Available in [facility] The following are ordered or available: 08/12/22 CT chest and 09/01/22 PET/CT resulted. PFT/DLCO from 05/18/22. Patients Medical Records: [facility] Is the patient on anticoagulants/anti-plt therapy? No Diagnosis: Hx of high risk operable malignant neoplasm [non-dx bx] RUL lung, cT1c [2.1 cm, SUV 12.9] N0 [by EBUS] M0 - stage IA3, s/p SBRT 34 Gy/1 fx completed 01/06/22. Now with two new hypermetabolic RUL lung nodules, concerning for recurrent disease. Referred by: Dr. Jaden Shelley APRN.CNP September 06, 2022 11:08 AM documented in this encounter [facility] 09-06-2022 Miscellaneous Notes Contacted pt with results of PET revealing 2 hypermetabolic lung nodules, have recommended repeat bx after discussion with DR Salazar, he is agreeable to attempt bx by bronchoscopy. Pt agreeable. Jaden Whipple MD documented in this encounter [facility] 08-12-2022 History of Presen t illness Narrative Radiology Service Progress Note PATIENT NAME: Markel Riggins DATE OF SERVICE: August 12, 2022 TIME: 9:46 AM PATIENT IDENTITY VERIFICATION COMPLETED USING TWO (2) IDENTIFIERS: Name and Date of confirmed by patient verbally. FALL SCREENING: Has the patient had 2 falls in the last year or 1 fall with injury or currently using an Ambulatory Assistive Device (Walker, Cane, Wheelchair, Crutches, etc.)? No PATIENT GENDER DATA: Male PATIENT RELEVANT IMPLANT DATA REVIEWED: Not Applicable RADIOLOGY DEPARTMENT: CT; Exam(s) Completed: Chest PERIPHERAL IV DATA: Not applicable SIGNED BY: MINDY Smith August 12, 2022 9:46 AM documented in this encounter [facility] 06-01-2022 Instructions Vesta Willard APRN.GROOMING ASSISTANT - 06/01/2022 11:31 AM EDT COPD- Patient to uses Breztri 2 puffs twice a day. Uses the Albuterol inhaler 2 pffs every 6 hours or Albuterol nebulizer up to three times a day 2. Enroll in Pulmonary Rehabilitation 3. Smoking Cessation- Working on quitting smoking. Vesta Willard APRN.GROOMING ASSISTANT [phone] Nicotine Patch Instructions Step 1: Use 21 mg patch for 6 weeks Step 2: Use 14mg patch for 2 weeks Step 3: Use 7 mg patch for 2 weeks Use one patch daily. Rotate patch location each day. Do not smoke any nicotine or tobacco products while using nicotine patches. Nicotine Gum Instructions Use 1 piece of nicotine gum every 1-2 hours for 6 weeks Cut back nicotine gum use for the next 6 weeks Nicotine gum can be used for a total of 12 weeks Chew gum until nicotine flavor is present. Then place gum against cheek until flavor disappears. At that point gum should be chewed again until flavor reappears. Place gum against cheek again and discard one flavor is gone. This process should be take about 30 minuets. Chewing gum too quickly can cause stomach irritation and malabsorption and full strength of gum will not be absorbed. Do not drink acidic or carbonated beverages (orange juice, coffee, soda ect...) prior to or while chewing nicotine gum. This will decrease the effectivness of the medication. 4mg gum for patients who smoke more then 25 cigarettes per day 2mg gum for patients who smoke 25 or less cigarettes per day Nicotine Lozenge Instructions Use 1 nicotine lozenge every 1-2 hours for 6 weeks Cut back nicotine lozenge use over the next 6 weeks Nicotine lozenge can be used for a total of [address] lozenge in mouth, dissolve over 30 minuets. Do not chew Nicotine Lozenge Do not use more the 5 Nicotine lozenges over a 6 hour period. Do not use more then 20 Nicotine lozenges over a 24 hour period. documented in this encounter [facility] 06-01-2022 History of Presen t illness Narrative Pulmonary Post Operative Follow-up Lung Cancer History: Stage IA3(J0xQ2T3 ) Treatment History: SBRT completed 01/06/2022 Chief Compliant: Markel Riggins is a pleasant 71 year old male seen for shortness of breath. HPI: He admit to shortness of breath with exertion and at rest. He does have shortness of breath at rest when tempeture is hot and humid outside. He has a daily dry cough. He has occasional wheezing at night. He uses a CPAP at home and is able to lay flat to sleep. He is using Breztri 2 puffs twice daily. He is using his Albuterol inhaler approximately once a week.He currently is not using his nebulizer machine. No recent respiratory infections. He had COVID-19 in June 2021. He did not require any treatment. No occupational exposures[place] He has had chickens in the past. He denies any night sweats, fevers or chills. His appetite is good and weight is stable. He admits to having issues when he is drinking coffee. He blows on the coffee to cool it off and then takes a ships and it causes him to choke and causes him to cough. He denies any choking cessation when he eats food or drinks other liquid. He denies any GERD symptoms. He eats his last meal between 7-8 and night and goes to bed a midnight. He is able to walk a couple hundred yards without stopping. Currently not climbing any stairs at home. He currently is not doing any routine daily exercises. He uses a riding guest relations coordinator to cut his grass. Patient is currently smoking about 1/2 pack of cigarettes a day. He is working on quitting. PMH and Past Surgical Hx is significant for COPD, DM, HTN, HLD, Lung Cancer and melanoma. Social History Tobacco Use: 1 packs/day, for 45 years. Types: Cigarettes Allergies ALLERGIES No Known Allergies PHYSICAL EXAMINATION: BP 143/80 Pulse 71 Ht 6' 0 (1.83m) Wt 264 lb (119.8kg) SpO2 93% BMI 35.80 kg/(m^2). Physical Exam Constitutional: Appearance: Normal appearance. Cardiovascular: Rate and Rhythm: Normal rate. Pulses: Normal pulses. Pulmonary: Effort: Pulmonary effort is normal. Breath sounds: Normal breath sounds. Skin: General: Skin is warm and dry. Neurological: General: No focal deficit present. Mental Status: He is alert and oriented to person, place, and time. General appearance: well appearing, in no acute distress, and alert Skin: Skin color, texture, turgor normal, no suspicious rashes or lesions, skin color, texture, turgor normal, no rashes or lesions surgical site Respiratory: lungs clear to auscultation no wheezing or rhonchi Cardiovascular: Negative. RRR without murmur, gallop, or rubs. No ectopy Data Review: I have visually reviewed imaging and testing below. Assessment and Plan: 1. Lung Cancer: Patient to have a repeat CT Chest and follow up with Dr. Holley in July 2022. 2. COPD/SOB: Patient to continue to use Breztri 2 puffs twice daily. He can uses his Albuterol HFA inhaler 2 puffs every 6 hours as needed or Albuterol nebulizer up to three times a day. Encouraged patient to start getting outside for a walk. Order will be placed for the patient to start pulmonary rehabilitation. 3.Smoking Cessation- Patient is working on quitting. He is currently smoking 1/2 pack a day. I have encouraged him to quit and to reach out for assistance if needed. 11:00 am June 01, 2022 Vesta Willard CNP documented in this encounter [facility] 05-19-2022 History of Presen t illness Narrative Pulm obey't s/p SBRT documented in this encounter [facility] 05-19-2022 Miscellaneous Notes 05/19/22: Dr. Seven roper'julius I call Mr. Riggins to make a pulm office obey't with either MD or OBEY. He judson'lewis Zhang. Booked w/Vesta Willard 06/01 @ 11am. Karen Riggins RN Respiratory [facility] documented in this encounter [facility] 05-18-2022 History of Presen t illness Narrative Radiation Oncology - Follow Up Note PATIENT NAME: Markel Riggins PATIENT DIAGNOSIS: high risk operable [by PFTs] malignant neoplasm [non-dx bx] RUL lung, cT1c [2.1 cm, SUV 12.9] N0 [by EBUS] M0 - stage IA3 s/p SBRT 34 Gy/1 fx completed 01/06/22 INTERVAL HISTORY: The patient presents for first post-SBRT follow up accompanied by his . Since completing treatment, he has had a progressive decline in his respiratory status. He has significant dyspnea on exertion limiting his daily activities. He is able to mow the lawn on a rider, but can only ambulate about 100 yards before needing a break. He also states that he is using his albuterol breathing treatment more frequently. He has a worsening cough productive of clear sputum. He notes that when he swallows, he frequently has a choking sensation and feels like he aspirates. He continues to smoke 1 pack every 2-3 days. He denies fatigue, hemoptysis, and weight loss. ALLERGIES No Known Allergies MEDICATIONS: vjgupknwgh-flcbyqtp-ourpvwbbcw (BREZTRI AEROSPHERE) 160-9-4.8 mcg/actuation HFA aerosol inhaler Inhale 2 Puffs as instructed twice daily. ipratropium-albuterol (DUONEB) 0.5 mg-3 mg(2.5 mg base)/3 mL nebu aspirin (ASPIR-81 ORAL) Take by mouth. albuterol HFA (PROVENTIL HFA, VENTOLIN HFA) 90 mcg/actuation inhaler Inhale 2 Puffs as instructed every 6 hours as needed. amLODIPine (NORVASC) 5 mg tablet Take 5 mg by mouth. atorvastatin (LIPITOR) 20 mg tablet Take 20 mg by mouth. metFORMIN (GLUCOPHAGE) 500 mg tablet Take 2 tablets by mouth. msvtmrgzheb-nnmglkuqv-lsobtkxa (TRELEGY ELLIPTA) 200-62.5-25 mcg dsdv Inhale 1 Inhalation as instructed once daily. REVIEW OF SYSTEMS: GENERAL: Negative for weight loss, fevers, chills, or night sweats. HEENT: Negative for sudden vision or hearing changes. NECK: Negative for masses in the neck. RESPIRATORY: See HPI. CARDIAC: Negative for chest pain, palpitations, murmurs, or syncopal episodes. GI: Negative for nausea, vomiting, diarrhea, constipation, blood per rectum, or melena. : Negative for dysuria, hematuria, urgency, frequency or incontinence. MUSCULOSKELETAL: Negative for limitations in movement, pain, or swelling. NEURO: Negative for dizziness, headache, weakness or numbness. HEMATOLOGIC: Negative for bleeding or easy bruising. SKIN: Negative for rashes or other skin changes. PHYSICAL EXAM: VS: BP 137/82 Pulse 71 Temp 36.6 C (97.8 F) (Oral) Resp 20 Wt 119.9 kg (264 lb 6.4 oz) SpO2 95% BMI 36.65 kg/m KPS: 70 General Appearance: Alert and oriented. No acute distress. HEENT: NCAT. Sclera anicteric. EOMI. Neck: Normal ROM. Chest: No respiratory distress on room air. Heart: Regular rate and rhythm. Abdomen: Soft. Nontender. Nondistended. Musculoskeletal: Normal ROM in extremities. Neuro: Speech fluent. Gait normal. No focal deficits. Skin: No rashes noted ASSESSMENT AND PLAN: Clinically stable, although he has had a decline in his respiratory status with evidence of COPD progression. FEV1 today is down to 45% predicted from 54% predicted in 12/2021. CT imaging demonstrates good response in treated RUL lesion with 2 new nodules in the RUL. Given the progressive COPD and possible aspiration events, these nodules may be inflammatory in nature. The patient has agreed to monitor with repeat imaging in 3 months. In the interim, we will arrange for follow up with pulmonary medicine to optimize his respiratory status. He was counseled on smoking cessation. Sarabjit Espino MD Radiation Oncology, PGY-2 [facility] STAFF PHYSICAN NOTE OF PERSONAL INVOLVEMENT IN CARE I have personally participated in the delacruz components of the case including a review ofimaging and agree, with the following amendments: pt on first post SBRT visit, excellent response at treated lesion, CT shows 2 new RUL nodules of which one 8mm, may be new met but cannot R/O inflammatory given his poor COPD status, will contatct Dr. Salazar for his opinion if pt's COPD status can be better managed medically, repeat CT in in [place] then call Jaden Whipple MD cc: Aidee Ramesh, GROOMING ASSISTANT ([facility]) [address] [place] [address] William Salazar [id number] [facility] [id number] documented in this encounter [facility] 05-18-2022 Nurse Note Additional intake questions: Has the patient had fever, nausea, vomiting, diarrhea, constipation, fatigue for > 1 week? Yes, fatigue Does the patient have a decreased appetite? No Does patient want to see a Hoop Bender Tank? No (yes to any of above refer patient to schedulers for dietitian appointment) ) Does patient have any new or increased numbness or tingling of extremities? No Is patient interested in fertility information? No Does patient need any prescription refills? No Does patient have an advanced directive in place? No, Patient refused referral to Social Work or Resource Center Electronically Signed By: Victorina Klein LPN documented in this encounter [facility] 05-18-2022 History of Presen t illness Narrative PULM FUNCTION SMARTBLOCK: Provider: Jaden Whipple MD Spirometry: 1 DLCO: 1 System: [id number] documented in this encounter [facility] 01-06-2022 History of Presen t illness Narrative Radiation Oncology - On Treatment Review (OTR) Note PATIENT NAME: Markel Riggins PATIENT DIAGNOSIS: high risk operable [by PFTs] malignant neoplasm [non-dx bx] RUL lung, cT1c [2.1 cm, SUV 12.9] N0 [by EBUS] M0 - stage IA3. PROTOCOL: no COURSE: definitive and SBRT (stereotactic body radiotherapy) Current dose: 3400 cGy in 1 fx Planned dose: 3400 cGy in 1 fx Status: Patient is male SUBJECTIVE: no treatment related complaints on completion PHYSICAL EXAM:BP 152/57 Pulse 81 Temp 36.6 C (97.8 F) (Oral) Resp 18 Wt 121.4 kg (267 lb 11.2 oz) SpO2 95% BMI 37.11 kg/m Area Assessed: Chest KPS: 100 General Appearance: Alert and oriented. No acute distress. Chest: No respiratory distress. IMAGING/LAB RESULTS: None TOXICITY ASSESSMENT (CTC v4.0): Fatigue: grade 0 - No symptoms Weight loss: grade 0 - No weight loss Nausea:Grade 0 - No Symptoms Radiation Dermatitis:grade 0 - No symptoms Dysphagia: grade 0 - No symptoms Esophageal Pain: Grade 0 - No symptoms Dyspnea: grade 0 (No symptoms) Treatment chart checked: Yes Patient treatment site reviewed and verified:Yes Port films reviewed and current:Yes Medications started: None ASSESSMENT/PLAN: Clinically stable. No signs of toxicity. The patient has completed radiotherapy and will be seen in follow-up in ~12 weeks. Acute and delayed side effects reviewed. Jaden Whipple MD documented in this encounter [facility] 12-24-2021 History of Presen t illness Narrative PULM FUNCTION SMARTBLOCK: Provider: William Salazar MD Spirometry w/BD: 1 DLCO: 1 System: [id number] documented in this encounter [facility] 12-24-2021 Procedure note Associated Order(s): SIX MINUTE WALK RESPIRATORY THERAPY SIX MINUTE WALK TEST OXIMETRY REPORT Six Minute Walk Test for This Encounter Oxygen Device Liters FIO2 SpO2% HR Activity Feet Speed (MPH) Flag R/A 98 79 Resting R/A 94 107 Six Minute Walk 755 1.4 R/A 96 90 Recovery 1 minute post R/A 98 89 Recovery 2 minute post R/A 99 87 Recovery 3 minute post General Information Height Weight Smoking Status Pulse Oximetry Site Oximeter Pre Blood Pressure Post Blood Pressure Total Time Spent (min) 180.9 cm (5' 11.22 ) 118.3 kg (260 lb 11.2 oz) Current Smoker Forehead Masimo 142/64 162/70 30 _ Distance Walked (meters) Distance Walked (feet) Male Predicted Walk Distance (feet) Male Lower Limit of Normal (feet) Male % Predicted Total Duration Of The Stops (seconds) 230.12 755 1643.37 1141.37 45.9 -- _ Lowest SpO2 During 6 Minute Walk Pre-Torres Dyspnea Rating Pre-Torres Fatigue Rating Post Torres Dyspnea Rating Post Torres Fatigue Rating O2 Supply Carrier Walking Assistance/Device 94 % 2 0 3 4 -- None Six Minute Walk Trend (Previous Encounters) None SIGNATURE: Yusra Stark RRT PATIENT NAME: Markel Riggins DATE: December 24, 2021 TIME: 1:10 PM The patient completed the six minute walk test with No stops. . The patient required Room Air to complete the test. The distance the patient walked in six minutes is extremely reduced. This is the first time patient takes the six minute walk test. The patient perceived their dyspnea during the six minute walk test to be 3-Moderate on the modified Torres scale. The patient perceived their fatigue during the six minute walk test to be 4-Somewhat severe on the modified Torres scale. I have reviewed the findings and made appropriate revisions as needed. SIGNATURE: Ochoa Alba MD PATIENT NAME: Markel Riggins DATE: December 24, 2021 TIME: 3:04 PM documented in this encounter [facility] 12-24-2021 History of Presen t illness Narrative PULM FUNCTION SMARTBLOCK: Provider: William Salazar MD Spirometry w/BD: 1 DLCO: 1 6 MW: 1 System: [id number] documented in this encounter [facility] 12-24-2021 Nurse Note Radiation Therapy - Patient Education Note PATIENT NAME: Markel Riggins PATIENT December 24, 2021 [facility] FACILITY/LOCATION: [facility] READINESS TO LEARN Cognitive Ability: Alert and oriented Motivation to learn: Eager Family Support: High - Very involved in pt care Instruction provide to: Patient and family member Patient learns best by: Individual Instruction Written Instruction - Hand-outs Verbal Instruction Factors effecting learning: None Physical limitations effecting learning: None LEARNING RESPONSE Diagnosis: Pt simulated today for radiation therapy to right lung. Education Topic/Teaching Points: Radiation therapy, Side effects and OTV: Method of instruction: Individual instruction Written instruction - handouts Verbal instruction Patient /Family response: Patient and family verbalized understanding of radiation treatments, side effects, OTV, and transportation. Follow-up plan: Patient instructed to call with any further issues Supplemental material: Informational handouts on SBRT lung. Referral (recommendation): None, Pt denied need for social work, van service, and set staff fitter. Was approved? Yes Signed by: Lana Hogan RN documented in this encounter [facility] 12-24-2021 History of Presen t illness Narrative MARKEL RIGGINS [id number] 12/24/2021 [facility] Department of Radiation Oncology [facility] RADIATION ONCOLOGY SIMULATION NOTE DATE OF SIMULATION: 12/24/2021 MACHINE: CT Simulator DIAGNOSIS: high risk operable [by PFTs] malignant neoplasm [non-dx bx] RUL lung, cT1c [2.1 cm, SUV 12.9] N0 [by EBUS] M0 - stage IA3. AREA: R lung PATIENT POSITION: Supine. BLOCKS: MLC will be used. FIXATION DEVICE: A time-out was conducted and recorded by the therapist. The patient was immobilized in a custom created bodyfix device with abdominal compression (belt) adjusted to limit respiratory excursion. CT images were taken during quiet breathing, full inhale, full exhale, as well as a series of 4D CT images in order to characterize tumor motion during the respiratory cycle. 4DCT images were reviewed to assess respiratory excursion and immobilization was judged to be adequate. The patient tolerated the procedure without difficulty. Images were transferred to dosimetry for initiation of treatment planning. Beam arrangement and treatment dose will be determined during planning. Electronically Signed JADEN WHIPPLE M.D. 0:44 AM documented in this encounter [facility] 12-24-2021 History of Presen t illness Narrative MARKEL RIGGINS [id number] 12/24/2021 [facility] Department of Radiation Oncology Treatment Planning Note For reasons stated in the consult note, Markel Riggins is a candidate for radiation therapy. Based on review and interpretation of the relevant diagnostic studies together with the exam findings, Markel Riggins was simulated on 12/24/2021 at which time the target volume and/or requisite french were delineated, as indicated in the simulation note, to be treated according to the prescription. An ITV was created from all the phases of respiratory motion captured by the 4DCT image sets. Motion management allowed for design of patient specific planning target volume and reduced the radiation exposure to normal tissues. The treatment target and organs at risk were contoured on the simulation scan. Special consideration to these and other structures was given in light of the potential for increased toxicities of stereotactic body radiation therapy (SBRT). After reviewing multiple treatment plans with dosimetry, the best plan was approved to deliver the prescribed course of radiation to the target area using inverse planning to allow for the best isodose distribution, treating to the 75.0% isodose line with 6 MV (FFF) and 2 french. Custom MLC for VMAT was the treatment device used to shape/modify the beams. Limiting dose to normal tissue was confirmed upon review of the calculated dose volume histogram. IMRT planning was used because it best met the dose/volume constraints for the organs at risk for this patient, better than what could be achieved using conventional or 3D planning. The specific dose requirements for the PTV, organs at risk and dose-volume histograms are contained in this treatment plan and/or elsewhere in the medical record. A completed summary of this plan dated 12/30/2021 incorporated herein by reference includes dose, beam arrangements, energy, blocking, isodose distribution, and/or ports and DVH. Electronically Signed Jaden Whipple M.D. 1:55 AM documented in this encounter [facility] 12-21-2021 Nurse Note Additional intake questions: Has the patient had fever, nausea, vomiting, diarrhea, constipation, fatigue for > 1 week? Yes, fatigue Does the patient have a decreased appetite? No Does patient want to see a [employer]op Bender Tank? No (yes to any of above refer patient to schedulers for dietitian appointment) ) Does patient have any new or increased numbness or tingling of extremities? No Is patient interested in fertility information? No Does patient need any prescription refills? No Does patient have an advanced directive in place? No, Patient referred to [facility] documented in this encounter [facility] 12-21-2021 History of Presen t illness Narrative Radiation Oncology - New Patient/Consult Note PATIENT NAME: Markel Riggins PATIENT REQUESTING PROVIDER: Dr. William Salazar. DIAGNOSIS: 71 year old male with malignant neoplasm RUL lung, [id number] - stage IA3. HPI: 71 year old male current 45 py smoker with a pmh significant for COPD, DM, HTN, HLD, and excised melanoma of skin. He presents with above diagnosis, for an opinion regarding the role of radiation therapy in the management of the patient's disease. Final recommendations will be communicated back to the requesting physician by way of the shared medical record, or letter to requesting physician via US mail. Mr. Markel Riggins underwent LDCT chest at OSH for lung cancer screening on 11/19/20 which identified a lobular, mildly spiculated RUL lung nodule, measuring 10.7 x 6.9 x 11.1 mm. PET/CT on 12/02/20 showed hypermetabolic uptake associated with the RUL nodule (SUV 6.1) and a few right hilar lymph nodes (SUV 3.4). CT chest on 02/19/21 described the unchanged 1.2 x 0.7 cm RUL lung nodule and stable indeterminate <5 mm nodules. Stable borderline enlarged AP window and right hilar lymph nodes also noted. 02/23/21 Bronch/EBUS TBBx of the RUL lesion returned respiratory bronchiolitis. Brushings/FNA were non diagnostic. FNA from station 11R, 4R, and 2R yielded benign lymphoid samples. CT chest performed on 10/12/21 described interval increase in the 1.6 x 1.0 cm spiculated RUL nodule, a stable 3 mm nodule in the left apex, and unchanged 1 cm AP window lymph node. Bronch/EBUS on 11/03/21 yielded non diagnostic samples from the RUL nodule FNA/brushing. FNA from stations 4L, 4R, 7, and 11Rs returned benign lymphoid samples. PET/CT on 11/29/21 described an increase in size and hypermetabolic uptake associated with the 2.1 x 1.3 cm RUL lung nodule (SUV 12.9). PFT's performed on 11/24/21 reported a FEV1 of 1.63L / 43% and DLCO of 68% of predicted. Mr. Markel Riggins presents with his spouse for consultation. He is a pleasant, well nourished, and functionally independant gentleman in [facility]. He notes mild fatigue at baseline and an excellent appetite. No unintentional weight loss within the past 3 months. He admits to an intermittent mild cough which is non productive. He admits to unchanged baseline exertional dyspnea. He denies hemoptysis or pain. Focused ROS: Fatigue: mild Weight loss: None Appetite: excellent Nausea: no Shortness of breath: On Exertion Cough: Intermittent (primarily AM), non productive Hemoptysis: No Dysphagia: No Pain with swallowing: No ALLERGIES No Known Allergies MEDICATIONS: pfsqzuhbpa-pnjkbukw-ekqcbjpijz (BREZTRI AEROSPHERE) 160-9-4.8 mcg/actuation HFA aerosol inhaler Inhale 2 Puffs as instructed twice daily. ntppuxcnnsr-wjlsyhouw-tnkobzds (TRELEGY ELLIPTA) 200-62.5-25 mcg dsdv Inhale 1 Inhalation as instructed once daily. ipratropium-albuterol (DUONEB) 0.5 mg-3 mg(2.5 mg base)/3 mL nebu aspirin (ASPIR-81 ORAL) Take by mouth. albuterol HFA (PROVENTIL HFA, VENTOLIN HFA) 90 mcg/actuation inhaler Inhale 2 Puffs as instructed every 6 hours as needed. amLODIPine (NORVASC) 5 mg tablet Take 5 mg by mouth. atorvastatin (LIPITOR) 20 mg tablet Take 20 mg by mouth. metFORMIN (GLUCOPHAGE) 500 mg tablet Take 2 tablets by mouth. PAST MEDICAL HISTORY Diagnosis Date COPD (chronic obstructive pulmonary disease) (HCC) Diabetes (HCC) High cholesterol HTN (hypertension) Lung nodule 12/2020 Melanoma (HCC) left ear Prior radiation therapy, collagen vascular disease, or inflammatory bowel disease: No status: NA PAST SURGICAL HISTORY Procedure Laterality Date APPENDECTOMY KNEE SURGERY HX 2018 left knee replacement FAMILY HISTORY Problem Relation Age of Onset Heart disease Father other (kidney cancer) Father Social History Tobacco Use Smoking status: Current Every Day Smoker Packs/day: 1.00 Years: 45.00 Pack years: 45.00 Types: Cigarettes Smokeless tobacco: Never Used Substance Use Topics Alcohol use: Not Currently Drug use: Not on file COMPLETE REVIEW OF SYSTEMS: GENERAL: See HPI HEENT: denies JOHANSEN, change in hearing or vision, no other ENT complaints NECK: denies swelling or pain in neck RESPIRATORY: See HPI CARDIOVASCULAR: no chest pain, no palpitations GI: no dysphagia, nausea, vomiting, abdominal pain, bowel changes, PRBPR or melena : + urinary frequency d/t enlarged prostate MUSCULOSKELETAL: denies any painful or swollen joints, no muscle aches, mild bilateral ankle edema SKIN: no rash HEMATOLOGY/LYMPHOLOGY: negative for prolonged bleeding, no swollen lymph nodes NEURO: no numbness or paresthesias, no weakness of the extremities and no headache PHYSICAL EXAM: VS: BP 142/62 Pulse 73 Temp 36.3 C (97.4 F) (Oral) Resp 20 Ht 181.6 cm (5' 11.5 ) Wt 118.6 kg (261 lb 8 oz) SpO2 97% BMI 35.97 kg/m KPS: 80 General Appearance: Alert and oriented. No acute distress. HEENT: NCAT. Sclera anicteric.EOMI. Neck: Normal ROM. No palpable cervical or supraclavicular adenopathy. Chest: No respiratory distress. Fine expiratory wheezes all french Heart: Regular rate and rhythm. Abdomen: Soft. Nondistended. Musculoskeletal: Trace edema bilateral ankles. Normal ROM in extremities. No bone or spine tenderness. Neuro: Speech fluent. Gait normal. No focal deficits. Skin: No rashes noted Lymphatics: No palpable lymphadenopathy. Hematologic: No signs of active bleeding. RADIOLOGY/LABORATORY DATA: see HPI ASSESSMENT AND PLAN: Mr. Markel Riggins is a pleasant 71 yr old gentleman who presents for consultation to to discuss treatment recommendations for management of an growing RUL lung lesion. Attempts at bronchoscopic sampling for tissue confirmation have yielded non diagnostic samples. Interval growth confirmed on serial CT scans and confirmed PET avidity satisfies radiographic criteria for malignancy. SBRT is recommended with 34Gy in 1 fx to be delivered to the ([id number]) - stage IA3 radiographic RUL lung malignant neoplasm with curative intent. SBRT SIM, rationale, admin, moa, risks, anticipated outcomes, acute and delayed SE, OTR, and follow up discussed. Questions answered to satisfaction. Written info and contact info given for further questions or concerns. Signed by: Soco Shelley APRN.[facility] STAFF PHYSICAN NOTE OF PERSONAL INVOLVEMENT IN CARE I have personally participated in the delacruz components of the case including a review of imaging and agree, with the following amendments: We discussed the risks, beneftits, alternatives, side effects and personnel of stereotactic body radiation therapy to this site with excellent chance of local control, as well as small chance of adeel or distant failure in non-treated regions. We also reviewed the potential toxicity profile though the majority of patients will have no measurable toxicity from treatment including no statistically significant change in PFT's. Given the size and peripheral location of the lesion I would recommend treatment to 34 Gy in 1 fraction. There are no trials for which this pt is eligible. We also reviewed the fact that biopsy was non diagnostic, however that based on CT and PET results the chances of this lesion representing lung malignancy is much greater than the minimal chance of treating an inflammatory lesion or other condition. Given the limited toxicity profile of treatment and high likelihood of a lung cancer we discussed the RBAP of proceeding with therapy at this point in comparison with repeat attempt at biopsy. The patient demonstrated his understanding of the pertinent issues and gave his informed consent to proceed. We will schedule simulation and initiation of radiation therapy in the upcomming days. [facility] Lung SBRT literature was provided to the pt today. Jaden Whipple MD cc: Aidee Ramesh, GROOMING ASSISTANT ([facility]) [address] [place] [address] William Salazar MD [facility] documented in this encounter [facility] 12-08-2021 Miscellaneous Notes 12/08 Karen Araujo called & req'd I call Mr. Riggins--she working outside of [facility] main & experiencing phone issues. I spoke w/Mr. Riggins & relayed Karen Hammer's info: She offered him 12/21/21 @ 10am with Dr. Whipple for his Rad-Onc visit -vs- him going his local facility @ [facility]. He chose [facility]. I confirmed w/Karen Hammer Of his choice. She will notify appropriate dept. From this point. documented in this encounter [facility] 08-17-2021 Evaluation note Encounter Date Diagnosis Assessment Notes 30 Nov, 2021 Diarrhea (ICD-10 - R19.7) Jul, Black stools (ICD-10 - K92.1) [employer] Other 10-01-2021 History general Narrative - Reported* Type Description Date Medical History diabetic type 2 Medical History HTN Medical History SLEEP APNEA Medical History HYPERLIPIDEMIA Medical History COPD Medical History COVID-06/2021 Surgical History APPENDECTOMY Surgical History TONSILECTOMY Surgical History LEFT KNEE REPLACED Surgical History BILATERAL KNEE SURGERIES Surgical History LESION ON L EAR Surgical History R EYE LENS REPLACED [employer] Other Evaluation + Plan note Future Appointments Appointment Date:06/05/2024 10:45:00 AM Scheduled Provider:Trino AMANDA, Julita Davis Location:[facility] Appointment Type:URO Office Visit Diagnostic Tests Pending * PSA Free & Total 02/28/24 [facility] evaluation note* Diagnosis Neoplasm of upper lobe of right lung- [facility] Diagnosis Malignant neoplasm of upper lobe of right lung (HCC)- Primary Malignant neoplasm of upper lobe, bronchus or lung [facility] Diagnosis Malignant neoplasm of upper lobe of right lung (HCC)- Primary Malignant neoplasm of upper lobe, bronchus or lung [facility] Diagnosis Malignant neoplasm of upper lobe of right lung (HCC)- Primary Malignant neoplasm of upper lobe, bronchus or lung [facility] Diagnosis Chronic obstructive pulmonary disease, unspecified COPD type (HCC)- Primary Lung nodule Solitary pulmonary nodule Nicotine dependence, chewing tobacco, with other nicotine-induced disorders [facility] Diagnosis Chronic obstructive pulmonary disease, unspecified COPD type (HCC)- Primary Lung nodule Solitary pulmonary nodule Nicotine dependence, chewing tobacco, with other nicotine-induced disorders [facility] Diagnosis Chronic obstructive pulmonary disease, unspecified COPD type (HCC)- Primary Lung nodule Solitary pulmonary nodule Nicotine dependence, chewing tobacco, with other nicotine-induced disorders [facility] Malignant neoplasm of upper lobe of right lung (HCC)- Primary Malignant neoplasm of upper lobe, bronchus or lung Malignant neoplasm of unspecified part of unspecified bronchus or lung (HCC) documented in this encounter [facility] noteNo [facility] [employer] Other Evaluation note* Diagnosis Malignant neoplasm of upper lobe of right lung (HCC)- Primary Malignant neoplasm of upper lobe, bronchus or lung documented in this encounter [facility] note* Diagnosis Malignant neoplasm of upper lobe of right lung (HCC)- Primary Malignant neoplasm of upper lobe, bronchus or lung documented in this encounter [facility] note* Diagnosis Malignant neoplasm of unspecified part of unspecified bronchus or lung (HCC)- Primary [facility]* Diagnosis Lung nodule- Primary Solitary pulmonary nodule documented in this encounter [facility] note* Diagnosis COPD, severe (HCC)- Primary Chronic airway obstruction, not elsewhere classified documented in this encounter [facility] note* Diagnosis Lung nodule Solitary pulmonary nodule [facility]* Diagnosis Lung nodules- Primary Other nonspecific abnormal finding of lung field Neoplasm of lung Neoplasm of unspecified nature of respiratory system [facility]* Diagnosis Preoperative examination- Primary Preoperative examination, unspecified [facility]* Diagnosis Lung nodules- Primary Other nonspecific abnormal finding of lung field Malignant neoplasm of upper lobe of right lung (HCC) Malignant neoplasm of upper lobe, bronchus or lung Bronchiolar disease Other diseases of trachea and bronchus documented in this encounter [facility] note* Diagnosis Chronic obstructive pulmonary disease, unspecified COPD type (HCC)- Primary Preoperative examination Preoperative examination, unspecified Abnormal finding on lung imaging Other nonspecific abnormal finding of lung field Malignant neoplasm of upper lobe of right lung (HCC) Malignant neoplasm of upper lobe, bronchus or lung Nicotine dependence, cigarettes, uncomplicated [facility]* Diagnosis Preoperative examination Preoperative examination, unspecified documented in this encounter [facility] note* Diagnosis Lung nodule Solitary pulmonary nodule Lung cancer (HCC) Malignant neoplasm of bronchus and lung, unspecified site Type 2 diabetes mellitus without complications (HCC) Type II or unspecified type diabetes mellitus without mention of complication, not stated as uncontrolled documented in this encounter [facility] note* Diagnosis Malignant neoplasm of upper lobe of right lung (HCC)- Primary Malignant neoplasm of upper lobe, bronchus or lung [facility] Diagnosis Lung nodules- Primary Other nonspecific abnormal finding of lung field Malignant neoplasm of upper lobe of right lung (HCC) Malignant neoplasm of upper lobe, bronchus or lung [facility] Diagnosis Lung nodules- Primary Other nonspecific abnormal finding of lung field Malignant neoplasm of upper lobe of right lung (HCC) Malignant neoplasm of upper lobe, bronchus or lung [facility] Diagnosis Malignant neoplasm of upper lobe of right lung (HCC)- Primary Malignant neoplasm of upper lobe, bronchus or lung [facility] Diagnosis Malignant neoplasm of bronchus and lung (HCC)- Primary Malignant neoplasm of bronchus and lung, unspecified site Neoplasm of lung Neoplasm of unspecified nature of respiratory system documented in this encounter [facility] note* Diagnosis Malignant neoplasm of bronchus and lung (HCC)- Primary Malignant neoplasm of bronchus and lung, unspecified site [facility] Diagnosis Neoplasm of lung Neoplasm of unspecified nature of respiratory system [facility] Diagnosis Malignant neoplasm of unspecified part of unspecified bronchus or lung (HCC)- Primary documented in this encounter [facility] note* Diagnosis Malignant neoplasm of unspecified part of unspecified bronchus or lung (HCC) [facility]* Diagnosis Malignant neoplasm of unspecified part of unspecified bronchus or lung (HCC) [facility]* Diagnosis Malignant neoplasm of unspecified part of unspecified bronchus or lung (HCC)- Primary [facility] Diagnosis Pleural effusion Unspecified pleural effusion [facility] Diagnosis Malignant neoplasm of unspecified part of unspecified bronchus or lung (HCC)- Primary Pleural effusion Unspecified pleural effusion [facility]* Diagnosis Malignant neoplasm of unspecified part of unspecified bronchus or lung (HCC)- Primary [facility] Diagnosis Malignant neoplasm of unspecified part of unspecified bronchus or lung (HCC) documented in this encounter [facility] course Narrative No data available for this section [facility] progress note No data available for this section [facility] reason for referral (narrative)* Outpatient Procedure (Routine) - Pending Review Specialty Diagnoses / Procedures Referred By Melindaac t Referred To Contact [facility] Diagnoses Malignant neoplasm of upper lobe of right lung (HCC) Procedures LUNG DIFFUSION CAPACITY (DLCO) DIFFUSING CAPACITY Jaden Whipple MD [address] [place] [address] [place] [address] Referral ID Status Reason Start Date Expiration Date Visits Requested Visits Authorized Pending Review Auto-Generat ed Referral 01/06/2022 02/05/2023 1 1 * Outpatient Procedure (Routine) - Pending Review Specialty Diagnoses / Procedures Referred By Contac t Referred To Contact [facility] Diagnoses Malignant neoplasm of upper lobe of right lung (HCC) Procedures SPIROMETRY BASELINE ONLY SPMTRY W/VC EXPIRATORY AMRY W/WO MXML VOL VNTJ Jaden Whipple MD [address] [place] [address] [place] [address] Referral ID Status Reason Start Date Expiration Date Visits Requested Visits Authorized Pending Review Auto-Generat ed Referral 01/06/2022 02/05/2023 1 1 * MRI/CT (Routine) - Pending Review Specialty Diagnoses / Procedures Referred By Contac t Referred To Contact CT IMAGING Diagnoses Malignant neoplasm of unspecified part of unspecified bronchus or lung (HCC) Procedures CT CHEST WO IVCON DIAGNOSTIC COMPUTED TOMOGRAPHY THORAX W/O CNTRST Jaden Whipple MD [address] [place] [address] Ct Imaging Referral ID Status Reason Start Date Expiration Date Visits Requested Visits Authorized [id number] Pending Review Auto-Generat ed Referral 01/06/2022 02/05/2023 1 1 [facility] for referral (narrative)* Diagnostic Procedure Only (Routine) - Pending Review Specialty Diagnoses / Procedures [facility] To [facility] MOLECULAR & FUNCTIONAL IMAGING Diagnoses Lung nodules Neoplasm of lung Procedures NM PET/CT SKULL-THIGH INITIAL PET IMAGING CT ATTENUATION SKULL [place] [address] [id number] Molecular & Functional Imaging [address] [id number] Referral ID Status Reason Start Date Expiration Date Visits Requested Visits Authorized [id number] Pending Review Auto-Generat ed Referral 09/14/2023 1 1 [facility] for referral (narrative)* Outpatient Procedure (Routine) - Pending Review Specialty Diagnoses / Procedures [facility] Diagnoses Malignant neoplasm of bronchus and lung (HCC) Procedures LUNG DIFFUSION CAPACITY (DLCO) DIFFUSING CAPACITY Soco Shelley, FORM TAMPER.GROOMING ASSISTANT [address] [place] [address] [facility] [address] [place] [id number] Referral ID Status Reason Start Date Expiration Date Visits Requested Visits Authorized [id number] Pending Review Auto-Generat ed Referral 11/15/2022 11/17/2023 1 1 * Outpatient Procedure (Routine) - Pending Review Specialty Diagnoses / Procedures [facility] To [facility] Diagnoses Malignant neoplasm of bronchus and lung (HCC) Procedures SPIROMETRY BASELINE ONLY SPMTRY W/VC EXPIRATORY MARY W/WO MXML VOL VNTJ Soco Shelley, FORM TAMPER.GROOMING ASSISTANT [address] [place] [address] [facility] [address] [place] [address] Referral ID Status Reason Start Date Expiration Date Visits Requested Visits Authorized [id number] Pending Review Auto-Generat ed Referral 01/15/2023 11/17/2023 1 1 * MRI/CT (Routine) - Pending Review Specialty Diagnoses / Procedures Referred By Robert damon Referred To Contact CT IMAGING Diagnoses Neoplasm of lung Procedures CT CHEST WO IVCON DIAGNOSTIC COMPUTED TOMOGRAPHY THORAX W/O Soco Dietz, DORETHA.GROOMING ASSISTANT [address] [place] [address] Ct Imaging Referral ID Status Reason Start Date Expiration Date Visits Requested Visits Authorized [id number] Pending Review Auto-Generat ed Referral 01/15/2023 11/17/2023 1 1 [facility] for visit NarrativePT HERE AT REQUEST OF AIDEE HOWARD FOR EVALUATION AND TREATMENT OF DIARRHEA, REFERRAL NOTE [facility] [employer] Other Summary Purpose Family History No Family History Records FoundNo Family History Records FoundNo Family History Records FoundNo Family History Records FoundNo Family History Records Found No data available for this section No Family History Records FoundNo Family History Records FoundNo Family History Records Found Advance Directives Documents on File Type Date Recorded 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 Advance Directive(s) 10/15/2021 1:59 PM Advance Directive(s) 02/18/2021 12:29 PM Documents on File Type Date Recorded 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 Advance Directive(s) 10/15/2021 1:59 PM Advance Directive(s) 02/18/2021 12:29 PM Reason for Referral Specialty Diagnoses / Procedures Referred By Robert damon Referred To Contact CT IMAGING Diagnoses Neoplasm of lung Procedures CT CHEST WO IVCON DIAGNOSTIC COMPUTED TOMOGRAPHY THORAX W/O CNTSoco Iglesias, DORETHA.GROOMING ASSISTANT [address] [place] [address] Ct Imaging Referral ID Status Reason Start Date Expiration Date V isits Requested Visits Authorized [id number] Closed Auto-Generate d Referral 01/15/2023 11/17/2023 1 1 Specialty Diagnoses / Procedures Referred By Contac t Referred To Contact RADIATION ONCOLOGY Diagnoses Malignant neoplasm of upper lobe of right lung (HCC) Procedures CT SIM PLANNING RADIATION ONCOLOGY THER RAD SIMULAJ-AIDED FIELD SETTING COMPLEX STEREOTACTIC BODY RADIATION DELIVERY Jaden Whipple MD [id number] [place] [address] [address] [place] [address] Referral ID Status Reason Start Date Expiration Date Visits Requested Visits Authorized [id number] Pending Review PCP Requested Referral 09/29/2022 12/27/2022 2 2 Specialty Diagnoses / Procedures Referred By Contac t Referred To Contact Diagnoses Malignant neoplasm of upper lobe of right lung (HCC) Procedures CT SIM PLANNING RADIATION ONCOLOGY THER RAD SIMULAJ-AIDED FIELD SETTING COMPLEX Jaden Whipple MD [address] [place] [address] Referral ID Status Reason Start Date Expiration Date Visits Requested Visits Authorized [id number] Pending Review PCP Requested Referral 09/29/2022 12/27/2022 1 1 Specialty Diagnoses / Procedures Referred By Contac t Referred To Contact CT IMAGING Diagnoses Preoperative examination Procedures CT CHEST WO IVCON DIAGNOSTIC COMPUTED TOMOGRAPHY THORAX W/O CNTRST Sumaya Peña PA-C [address] [place] [place] [address] Ct Imaging Referral ID Status Reason Start Date Expiration Date Visits Requested Visits Authorized [id number] Pending Review Auto-Generat ed Referral 2 10/07/2023 1 1 Specialty Diagnoses / Procedures Referred By Contac t Referred To [facility] Diagnoses Preoperative examination Procedures ECG COMPLETE ECG ROUTINE ECG W/LEAST 12 LDS W/I&R Sumaya Peña PA-C [address] [place] [address] [facility] [address] [place] [address] Referral ID Status Reason Start Date Expiration Date Visits Requested Visits Authorized [id number] Pending Review Auto-Generat ed Referral 09/07/2023 1 1 Specialty Diagnoses / Procedures Referred By Contac t Referred To Contact Pulmonary Disease Diagnoses Lung nodule Procedures CONSULT TO LUNG NODULE CLINIC OFFICE/OUTPATIENT [facility] HIGH MDM 60-74 MINUTES Wendy Hansen, DORETHA.GROOMING ASSISTANT [address] [place] [address] Referral ID Status Reason Start Date Expiration Date Visits Requested Visits Authorized [id number] Authorized PCP Requested Referral 05/19/2022 05/19/2023 1 1 Specialty Diagnoses / Procedures Referred By Contac t Referred To Contact CT IMAGING Diagnoses Malignant neoplasm of unspecified part of unspecified bronchus or lung (HCC) Procedures CT CHEST WO IVCON DIAGNOSTIC COMPUTED TOMOGRAPHY THORAX W/[place] [id number] Imaging Referral ID Status Reason Start Date Expiration Date Visits Requested Visits Authorized [id number] Authorized Auto-Generat ed Referral 05/18/2022 06/17/2023 1 1 Health Concerns Infection Onset Date Last Indicated Resolved Time COVID-19 Rule-Out 09/20/2022 09/20/2022 09/20/2022 10:15 PM EST Medications Administered Section Inactive Administered Medications - up to 3 most recent administrations Medication Order MAR Action Action Date Dose Rate Site acetaminophen 650 mg tab(s) (TYLENOL) 650 mg, ORAL, NEEDED, 1 dose, Starting on Mon09/21/22 at 1140, Until Marielena 09/22/22 at 0304, Mild Pain (1-3) - Enteral, Moderate Pain (4-6) - Enteral, Severe Pain (>/=7) - Enteral, If ordered PRN for pain, patient/guardian may elect to receive this medication for higher pain levels INSTEAD of the opioid, if preferred: Yes albuterol 2.5 mg /3 mL (0.083 %) 2.5 mg (PROVENTIL) 2.5 mg, INHALATION, NEEDED, 1 dose, Starting on 09/21/22 at 1140, Until Marielena 09/22/22 at 0304, wheezing/shortness of breath, cough/wheezing Additional Source Comments (unrecognized sect ion and content) No Status Records FoundNo Status Records FoundNo Status Records FoundNo Status Records FoundNo Status Records FoundNo Status Records FoundNo Status Records FoundNo Status Records Found INFORMATION SOURCE (unrecogn ized section and content) DATE CREATED AUTHOR 03/14/2018 [facility] DATE CREATED AUTHOR AUTHOR'S ORGANIZ ATION 03/14/2018 [facility] DATE CREATED AUTHOR AUTHOR'S ORGANIZ ATION 10/29/2021 [facility] DATE CREATED AUTHOR AUTHOR'S ORGANIZ ATION 09/10/2022 [facility] DATE CREATED AUTHOR AUTHOR'S ORGANIZ ATION 10/04/2022 [facility] DATE CREATED AUTHOR AUTHOR'S ORGANIZ ATION 04/25/2024 [facility] dical [facility] DATE CREATED AUTHOR AUTHOR'S ORGANIZ ATION 05/24/2024 [facility] DATE CREATED AUTHOR AUTHOR'S ORGANIZ ATION 05/25/2024 [facility] Source Comments (unrecognize d section and content) In the event this informatio n is protected by the Federal Confidentiality of Alcohol and Drug Abuse Patient Records regulations: The Federal rules restrict any use of the information to criminally investigate or prosecute any alcohol or drug abuse patient.[facility] HealthIn the event this information is protected by the Federal Confidentiality of Alcohol and Drug Abuse Patient Records regulations: The Federal rules restrict any use of the information to criminally investigate or prosecute any alcohol or drug abuse patient.[facility] HealthIn the event this information is protected by the Federal Confidentiality of Alcohol and Drug Abuse Patient Records regulations: The Federal rules restrict any use of the information to criminally investigate or prosecute any alcohol or drug abuse patient.[facility] HealthIn the event this information is protected by the Federal Confidentiality of Alcohol and Drug Abuse Patient Records regulations: The Federal rules restrict any use of the information to criminally investigate or prosecute any alcohol or drug abuse patient.[facility] HealthIn the event this information is protected by the Federal Confidentiality of Alcohol and Drug Abuse Patient Records regulations: The Federal rules restrict any use of the information to criminally investigate or prosecute any alcohol or drug abuse patient.[facility] HealthIn the event this information is protected by the Federal Confidentiality of Alcohol and Drug Abuse Patient Records regulations: The Federal rules restrict any use of the information to criminally investigate or prosecute any alcohol or drug abuse patient.[facility] HealthIn the event this information is protected by the Federal Confidentiality of Alcohol and Drug Abuse Patient Records regulations: The Federal rules restrict any use of the information to criminally investigate or prosecute any alcohol or drug abuse patient.[facility] HealthIn the event this information is protected by the Federal Confidentiality of Alcohol and Drug Abuse Patient Records regulations: The Federal rules restrict any use of the information to criminally investigate or prosecute any alcohol or drug abuse patient.[facility] HealthIn the event this information is protected by the Federal Confidentiality of Alcohol and Drug Abuse Patient Records regulations: The Federal rules restrict any use of the information to criminally investigate or prosecute any alcohol or drug abuse patient.[facility] HealthIn the event this information is protected by the Federal Confidentiality of Alcohol and Drug Abuse Patient Records regulations: The Federal rules restrict any use of the information to criminally investigate or prosecute any alcohol or drug abuse patient.[facility] HealthIn the event this information is protected by the Federal Confidentiality of Alcohol and Drug Abuse Patient Records regulations: The Federal rules restrict any use of the information to criminally investigate or prosecute any alcohol or drug abuse patient.[facility] HealthIn the event this information is protected by the Federal Confidentiality of Alcohol and Drug Abuse Patient Records regulations: The Federal rules restrict any use of the information to criminally investigate or prosecute any alcohol or drug abuse patient.[facility] HealthIn the event this information is protected by the Federal Confidentiality of Alcohol and Drug Abuse Patient Records regulations: The Federal rules restrict any use of the information to criminally investigate or prosecute any alcohol or drug abuse patient.[facility] HealthIn the event this information is protected by the Federal Confidentiality of Alcohol and Drug Abuse Patient Records regulations: The Federal rules restrict any use of the information to criminally investigate or prosecute any alcohol or drug abuse patient.[facility] HealthIn the event this information is protected by the Federal Confidentiality of Alcohol and Drug Abuse Patient Records regulations: The Federal rules restrict any use of the information to criminally investigate or prosecute any alcohol or drug abuse patient.[facility] HealthIn the event this information is protected by the Federal Confidentiality of Alcohol and Drug Abuse Patient Records regulations: The Federal rules restrict any use of the information to criminally investigate or prosecute any alcohol or drug abuse patient.[facility] HealthIn the event this information is protected by the Federal Confidentiality of Alcohol and Drug Abuse Patient Records regulations: The Federal rules restrict any use of the information to criminally investigate or prosecute any alcohol or drug abuse patient.[facility] HealthIn the event this information is protected by the Federal Confidentiality of Alcohol and Drug Abuse Patient Records regulations: The Federal rules restrict any use of the information to criminally investigate or prosecute any alcohol or drug abuse patient.[facility] HealthIn the event this information is protected by the Federal Confidentiality of Alcohol and Drug Abuse Patient Records regulations: The Federal rules restrict any use of the information to criminally investigate or prosecute any alcohol or drug abuse patient.[facility] HealthIn the event this information is protected by the Federal Confidentiality of Alcohol and Drug Abuse Patient Records regulations: The Federal rules restrict any use of the information to criminally investigate or prosecute any alcohol or drug abuse patient.[facility] HealthIn the event this information is protected by the Federal Confidentiality of Alcohol and Drug Abuse Patient Records regulations: The Federal rules restrict any use of the information to criminally investigate or prosecute any alcohol or drug abuse patient.[facility] HealthIn the event this information is protected by the Federal Confidentiality of Alcohol and Drug Abuse Patient Records regulations: The Federal rules restrict any use of the information to criminally investigate or prosecute any alcohol or drug abuse patient.[facility] HealthIn the event this information is protected by the Federal Confidentiality of Alcohol and Drug Abuse Patient Records regulations: The Federal rules restrict any use of the information to criminally investigate or prosecute any alcohol or drug abuse patient.[facility] HealthIn the event this information is protected by the Federal Confidentiality of Alcohol and Drug Abuse Patient Records regulations: The Federal rules restrict any use of the information to criminally investigate or prosecute any alcohol or drug abuse patient.[facility] HealthIn the event this information is protected by the Federal Confidentiality of Alcohol and Drug Abuse Patient Records regulations: The Federal rules restrict any use of the information to criminally investigate or prosecute any alcohol or drug abuse patient.[facility] HealthIn the event this information is protected by the Federal Confidentiality of Alcohol and Drug Abuse Patient Records regulations: The Federal rules restrict any use of the information to criminally investigate or prosecute any alcohol or drug abuse patient.[facility] HealthIn the event this information is protected by the Federal Confidentiality of Alcohol and Drug Abuse Patient Records regulations: The Federal rules restrict any use of the information to criminally investigate or prosecute any alcohol or drug abuse patient.[facility] HealthIn the event this information is protected by the Federal Confidentiality of Alcohol and Drug Abuse Patient Records regulations: The Federal rules restrict any use of the information to criminally investigate or prosecute any alcohol or drug abuse patient.[facility] HealthIn the event this information is protected by the Federal Confidentiality of Alcohol and Drug Abuse Patient Records regulations: The Federal rules restrict any use of the information to criminally investigate or prosecute any alcohol or drug abuse patient.[facility] HealthIn the event this information is protected by the Federal Confidentiality of Alcohol and Drug Abuse Patient Records regulations: The Federal rules restrict any use of the information to criminally investigate or prosecute any alcohol or drug abuse patient.[facility] HealthIn the event this information is protected by the Federal Confidentiality of Alcohol and Drug Abuse Patient Records regulations: The Federal rules restrict any use of the information to criminally investigate or prosecute any alcohol or drug abuse patient.[facility] HealthIn the event this information is protected by the Federal Confidentiality of Alcohol and Drug Abuse Patient Records regulations: The Federal rules restrict any use of the information to criminally investigate or prosecute any alcohol or drug abuse patient.[facility] HealthIn the event this information is protected by the Federal Confidentiality of Alcohol and Drug Abuse Patient Records regulations: The Federal rules restrict any use of the information to criminally investigate or prosecute any alcohol or drug abuse patient.[facility] HealthIn the event this information is protected by the Federal Confidentiality of Alcohol and Drug Abuse Patient Records regulations: The Federal rules restrict any use of the information to criminally investigate or prosecute any alcohol or drug abuse patient.[facility] HealthIn the event this information is protected by the Federal Confidentiality of Alcohol and Drug Abuse Patient Records regulations: The Federal rules restrict any use of the information to criminally investigate or prosecute any alcohol or drug abuse patient.[facility] HealthIn the event this information is protected by the Federal Confidentiality of Alcohol and Drug Abuse Patient Records regulations: The Federal rules restrict any use of the information to criminally investigate or prosecute any alcohol or drug abuse patient.[facility] HealthIn the event this information is protected by the Federal Confidentiality of Alcohol and Drug Abuse Patient Records regulations: The Federal rules restrict any use of the information to criminally investigate or prosecute any alcohol or drug abuse patient.[facility] HealthIn the event this information is protected by the Federal Confidentiality of Alcohol and Drug Abuse Patient Records regulations: The Federal rules restrict any use of the information to criminally investigate or prosecute any alcohol or drug abuse patient.[facility] HealthIn the event this information is protected by the Federal Confidentiality of Alcohol and Drug Abuse Patient Records regulations: The Federal rules restrict any use of the information to criminally investigate or prosecute any alcohol or drug abuse patient.[facility] HealthIn the event this information is protected by the Federal Confidentiality of Alcohol and Drug Abuse Patient Records regulations: The Federal rules restrict any use of the information to criminally investigate or prosecute any alcohol or drug abuse patient.[facility] HealthIn the event this information is protected by the Federal Confidentiality of Alcohol and Drug Abuse Patient Records regulations: The Federal rules restrict any use of the information to criminally investigate or prosecute any alcohol or drug abuse patient.[facility] HealthIn the event this information is protected by the Federal Confidentiality of Alcohol and Drug Abuse Patient Records regulations: The Federal rules restrict any use of the information to criminally investigate or prosecute any alcohol or drug abuse patient.[facility] HealthIn the event this information is protected by the Federal Confidentiality of Alcohol and Drug Abuse Patient Records regulations: The Federal rules restrict any use of the information to criminally investigate or prosecute any alcohol or drug abuse patient.[facility] HealthIn the event this information is protected by the Federal Confidentiality of Alcohol and Drug Abuse Patient Records regulations: The Federal rules restrict any use of the information to criminally investigate or prosecute any alcohol or drug abuse patient.[facility] HealthIn the event this information is protected by the Federal Confidentiality of Alcohol and Drug Abuse Patient Records regulations: The Federal rules restrict any use of the information to criminally investigate or prosecute any alcohol or drug abuse patient.[facility] HealthIn the event this information is protected by the Federal Confidentiality of Alcohol and Drug Abuse Patient Records regulations: The Federal rules restrict any use of the information to criminally investigate or prosecute any alcohol or drug abuse patient.[facility] HealthIn the event this information is protected by the Federal Confidentiality of Alcohol and Drug Abuse Patient Records regulations: The Federal rules restrict any use of the information to criminally investigate or prosecute any alcohol or drug abuse patient.[facility] HealthIn the event this information is protected by the Federal Confidentiality of Alcohol and Drug Abuse Patient Records regulations: The Federal rules restrict any use of the information to criminally investigate or prosecute any alcohol or drug abuse patient.[facility] HealthIn the event this information is protected by the Federal Confidentiality of Alcohol and Drug Abuse Patient Records regulations: The Federal rules restrict any use of the information to criminally investigate or prosecute any alcohol or drug abuse patient.[facility] HealthIn the event this information is protected by the Federal Confidentiality of Alcohol and Drug Abuse Patient Records regulations: The Federal rules restrict any use of the information to criminally investigate or prosecute any alcohol or drug abuse patient.[facility] Reason for Visit (unrecogniz ed section and content) Reason Comments Radiology NM Specialty Diagnoses / Procedures Referred By Contac t Referred To Contact CT IMAGING Diagnoses Malignant neoplasm of unspecified part of unspecified bronchus or lung (HCC) Procedures CT CHEST WO IVCON DIAGNOSTIC COMPUTED TOMOGRAPHY THORAX W/[place] [address] [place] [address] [place] [address] Referral ID Status Reason Start Date Expiration Date V isits Requested Visits Authorized [id number] Closed Auto-Generate d Referral 10/20/2023 11/19/2023 1 1 Reason Comments Appointment 1st Rad-Onc visit Reason Onset Date Comments Simulation Request Form 12/21/2021 Reason Comments Consult Specialty Diagnoses / Procedures Referred By Contac t Referred To Contact Radiation Oncology Diagnoses Lung nodule Procedures RAD/ONC CONSULT OFFICE/OUTPATIENT NEW HIGH MDM 60-74 MINUTES William Salazar MD [address] [place] [address] Referral ID Status Reason Start Date Expiration Date V isits Requested Visits Authorized [id number] Closed PCP Requested Referral 12/07/2021 12/07/2022 1 1 Reason Comments Patient Education Reason Comments Spirometry Specialty Diagnoses / Procedures Referred By Contac t Referred To [facility] Diagnoses Lung nodule Chronic obstructive pulmonary disease, unspecified COPD type (HCC) Nicotine dependence, chewing tobacco, with other nicotine-induced disorders Procedures SIX MINUTE WALK CARDIOPULMONARY EXERCISE STRESS William Salazar MD [address] [place] [address] [address] Referral ID Status Reason Start Date Expiration Date V isits Requested Visits Authorized [id number] Closed Auto-Generate d Referral 10/12/2021 11/11/2022 1 1 Specialty Diagnoses / Procedures Referred By Contac t Referred To [facility] Diagnoses Lung nodule Chronic obstructive pulmonary disease, unspecified COPD type (HCC) Nicotine dependence, chewing tobacco, with other nicotine-induced disorders Procedures LUNG DIFFUSION CAPACITY (DLCO) DIFFUSING CAPACITY William Salazar MD [address] [place] [address] [address] Referral ID Status Reason Start Date Expiration Date V isits Requested Visits Authorized [id number] Closed Auto-Generate d Referral 10/12/2021 11/11/2022 1 1 Specialty Diagnoses / Procedures Referred By Contac t Referred To [facility] Diagnoses Lung nodule Chronic obstructive pulmonary disease, unspecified COPD type (HCC) Nicotine dependence, chewing tobacco, with other nicotine-induced disorders Procedures SPIROMETRY WITH DILATOR IF OBSTRUCTED BRNCDILAT RSPSE SPMTRY PRE&POST-BRNCDILAT ADMN William Salazar MD [address] [place] [address] [address] Referral ID Status Reason Start Date Expiration Date V isits Requested Visits Authorized [id number] Closed Auto-Generate d Referral 10/12/2021 11/11/2022 1 1 Reason Comments Radiotherapy On-treatment Visit Specialty Diagnoses / Procedures Referred By Contac t Referred To Contact [facility] Diagnoses Malignant neoplasm of upper lobe of right lung (HCC) Procedures SPIROMETRY BASELINE ONLY SPMTRY W/VC EXPIRATORY MARY W/[place] [address] [place] [address] [place] [address] Referral ID Status Reason Start Date Expiration Date V isits Requested Visits Authorized [id number] Closed Auto-Generate d Referral 01/06/2022 02/05/2023 1 1 Specialty Diagnoses / Procedures Referred By Contac t Referred To Contact [facility] Diagnoses Malignant neoplasm of upper lobe of right lung (HCC) Procedures LUNG DIFFUSION CAPACITY (DLCO) DIFFUSING CAPACITY Jaden Whipple MD [address] [place] [address] [place] [address] Referral ID Status Reason Start Date Expiration Date V isits Requested Visits Authorized [id number] Closed Auto-Generate d Referral 01/06/2022 02/05/2023 1 1 Reason Comments Established Patient Reason Comments Dr. Salazar realvarado obey't w/ or OBEY Reason Comments Nodule Specialty Diagnoses / Procedures Referred By Contac t Referred To Contact Pulmonary Disease Diagnoses Lung nodule Procedures CONSULT TO LUNG NODULE CLINIC OFFICE/OUTPATIENT [facility] 60-74 MINUTES Wendy Hansen APRN.GROOMING ASSISTANT [address] [place] [address] Referral ID Status Reason Start Date Expiration Date V isits Requested Visits Authorized [id number] Closed PCP Requested Referral 05/19/2022 05/19/2023 1 1 Reason Comments pre op bronch Schedule and confirm Reason Comments Bronchoscopy Scheduling Reason Comments Radiology CT Specialty Diagnoses / Procedures Referred By Contac t Referred To Contact CT IMAGING Diagnoses Preoperative examination Procedures CT CHEST WO IVCON DIAGNOSTIC COMPUTED TOMOGRAPHY THORAX W/O CNTRST Sumaya Peña PA-C [address] [place] [address] Ct Imaging Referral ID Status Reason Start Date Expiration Date V isits Requested Visits Authorized [id number] Closed Auto-Generate d Referral 09/20/2022 10/20/2022 1 1 Specialty Diagnoses / Procedures Referred By Robert damon Referred To Contact [facility] Diagnoses Bronchiolar disease Procedures [facility] INCL FLUOR GDNCE DX W/CELL WASHG SPX BRONCHOSCOPY [facility] [address] [place] [address] Referral ID Status Reason Start Date Expiration Date Visits Re quested Visits Authorized [id number] 1 1 Reason Comments Results Reason Onset Date Comments Simulation Request Form 09/28/2022 Specialty Diagnoses / Procedures Referred By Robert damon Referred To Contact [facility] Diagnoses Malignant neoplasm of bronchus and lung (HCC) Procedures SPIROMETRY BASELINE ONLY SPMTRY W/VC EXPIRATORY MARY W/WO MXML VOL VNTJ Soco Shelley, FORM TAMPER.GROOMING ASSISTANT [id number] [facility] [address] [place] [address] Referral ID Status Reason Start Date Expiration Date V isits Requested Visits Authorized [id number] Closed Auto-Generate d Referral 01/15/2023 11/17/2023 1 1 Specialty Diagnoses / Procedures Referred By Robert damon Referred To Contact CT IMAGING Diagnoses Neoplasm of lung Procedures CT CHEST WO IVCON DIAGNOSTIC COMPUTED TOMOGRAPHY THORAX W/O CNTRST Soco Shelley, FORM TAMPER.GROOMING ASSISTANT [address] [place] [address] Ct Imaging Referral ID Status Reason Start Date Expiration Date V isits Requested Visits Authorized [id number] Closed Auto-Generate d Referral 01/15/2023 11/17/2023 [address] Radiology Service Pr ogangela NotePATIENT NAME: Markel RigginsMRN: [id number] OF SERVICE: May 17, 2022TIME: 1:27 PMPATIENT IDENTITY VERIFICATION COMPLETED USING TWO (2) IDENTIFIERS: Name and Date of confirmed by patient verbally.FALL SCREENING: Has the patient had 2 falls in the last year or 1 fall with injury or currently using an Ambulatory Assistive Device (Walker, Cane, Wheelchair, Crutches, etc.)? NoPATIENT GENDER DATA: MalePATIENT RELEVANT IMPLANT DATA REVIEWED: Specialty Diagnoses / Procedures Referred By Contac t Referred To Contact CT IMAGING Diagnoses Malignant neoplasm of unspecified part of unspecified bronchus or lung (HCC) Procedures CT CHEST WO IVCON DIAGNOSTIC COMPUTED TOMOGRAPHY THORAX W/O Jaden Elder [place] [id number] [place] [address] Ct Imaging Referral ID Status Reason Start Date Expiration Date V isits Requested Visits Authorized [id number] Closed Auto-Generate d Referral 01/06/2022 02/05/2023 1 1 Referral ID Status Reason Start Date Expiration Date V isits Requested Visits Authorized [id number] Closed Auto-Generate d Referral 05/18/2022 06/17/2023 1 1 Reason Comments Refill Request Reason Comments Radiotherapy Follow-up Reason Comments Appointment Thoracentesis Reason Comments Radio Gen HB6 Specialty Diagnoses / Procedures Referred By Contac t Referred To Contact ADMITTING Diagnoses Bronchiolar disease Procedures THORACENTESIS NEEDLE/CATH PLEURA W/IMAGING THORACENTESIS NEEDLE OR CATHETER ASPIRATION OF THE PLEURAL SPACE W IMAGING GUIDANCE [facility] H[address] [address] Referral ID Status Reason Start Date Expiration Date Visits Re quested Visits Authorized [id number] 1 1 Reason Comments Radiotherapy Follow-up Specialty Diagnoses / Procedures Referred By Contac t Referred To Contact CT IMAGING Diagnoses Malignant neoplasm of unspecified part of unspecified bronchus or lung (HCC) Procedures CT CHEST WO IVCON DIAGNOSTIC COMPUTED TOMOGRAPHY THORAX W/O Jaden Elder MD [address] [place] [address] [address] [place] [address] Referral ID Status Reason Start Date Expiration Date V isits Requested Visits Authorized [id number] Closed Auto-Generate d Referral 11/02/2023 12/01/2024 1 1 Reason Comments Radiology [place] Referral ID Status Reason Start Date Expiration Date V isits Requested Visits Authorized [id number] Closed Auto-Generate d Referral 10/20/2023 11/19/2023 1 1 Care Teams (unrecognized sec tion and content) Scientific Programmer Analyst Relationship Specialty Start Date End Date Aidee Ramesh, GROOMING ASSISTANT [address] [place] [address] PCP - General Family Practice 01/19/21 Scientific Programmer Analyst Relationship Specialty Start Date End Date Aidee Ramesh, GROOMING ASSISTANT [address] [place] [address] PCP - General Family Practice 01/19/21 Scientific Programmer Analyst Relationship Specialty Start Date End Date [facility] GROOMING ASSISTANT [address] [place] [address] PCP - General Family Practice 01/19/21 Scientific Programmer Analyst Relationship Specialty Start Date End Date Aidee Ramesh, GROOMING ASSISTANT [address] [place] [address] PCP - General Family Practice 01/19/21 Scientific Programmer Analyst Relationship Specialty Start Date End Date Aidee Ramesh, GROOMING ASSISTANT [address] [place] [address] PCP - General Family Practice 01/19/21 Scientific Programmer Analyst Relationship Specialty Start Date End Date Aidee Ramesh, GROOMING ASSISTANT [address] [place] [address] PCP - General Family Practice 01/19/21 Scientific Programmer Analyst Relationship Specialty Start Date End Date Aidee Ramesh, GROOMING ASSISTANT [address] [place] [address] PCP - General Family Practice 01/19/21 Scientific Programmer Analyst Relationship Specialty Start Date End Date Aidee Ramesh, GROOMING ASSISTANT [address] [place] [address] PCP - General Family Practice 01/19/21 Scientific Programmer Analyst Relationship Specialty Start Date End Date Aidee Ramesh, GROOMING ASSISTANT [address] [place] [address] PCP - General Family Practice 01/19/21 Scientific Programmer Analyst Relationship Specialty Start Date End Date Aidee Ramesh, GROOMING ASSISTANT [address] [place] [address] PCP - General Family Practice 01/19/21 Scientific Programmer Analyst Relationship Specialty Start Date End Date Aidee Ramesh, GROOMING ASSISTANT [address] [place] [address] PCP - General Family Practice 01/19/21 Scientific Programmer Analyst Relationship Specialty Start Date End Date Aidee Ramesh, GROOMING ASSISTANT [address] [place] [address] PCP - General Family Practice 01/19/21 Scientific Programmer Analyst Relationship Specialty Start Date End Date Aidee Ramesh, GROOMING ASSISTANT [address] [place] [address] PCP - General Family Medicine 01/19/21 Scientific Programmer Analyst Relationship Specialty Start Date End Date Aidee Ramesh, GROOMING ASSISTANT [address] [place] [address] PCP - General Family Medicine 01/19/21 Scientific Programmer Analyst Relationship Specialty Start Date End Date Aidee Ramesh, GROOMING ASSISTANT [address] [place] [address] PCP - General Family Medicine 01/19/21 Scientific Programmer Analyst Relationship Specialty Start Date End Date Aidee Ramesh, GROOMING ASSISTANT [address] [place] [address] PCP - General Family Medicine 01/19/21 Scientific Programmer Analyst Relationship Specialty Start Date End Date Aidee Ramesh, GROOMING ASSISTANT [address] [place] [address] PCP - General Family Medicine 01/19/21 Scientific Programmer Analyst Relationship Specialty Start Date End Date Aidee Ramesh, GROOMING ASSISTANT [address] [place] [address] PCP - General Family Medicine 01/19/21 Scientific Programmer Analyst Relationship Specialty Start Date End Date Aidee Ramesh, GROOMING ASSISTANT [address] [place] [address] PCP - General Family Medicine 01/19/21 Scientific Programmer Analyst Relationship Specialty Start Date End Date Aidee Ramesh, GROOMING ASSISTANT [address] [place] [address] PCP - General Family Medicine 01/19/21 Scientific Programmer Analyst Relationship Specialty Start Date End Date Aidee Ramesh, GROOMING ASSISTANT [address] [place] [address] PCP - General Family Medicine 01/19/21 Scientific Programmer Analyst Relationship Specialty Start Date End Date Aidee Ramesh, GROOMING ASSISTANT [address] [place] [address] PCP - General Family Medicine 01/19/21 Scientific Programmer Analyst Relationship Specialty Start Date End Date Aidee Ramesh, GROOMING ASSISTANT [address] [place] [address] PCP - General Family Medicine 01/19/21 Scientific Programmer Analyst Relationship Specialty Start Date End Date Aidee Ramesh, GROOMING ASSISTANT [address] [place] [address] PCP - General Family Medicine 01/19/21 [place] [address] [place] [address] Specialty Insulator Helper Radiation Oncology 10/17/22 Scientific Programmer Analyst Relationship Specialty Start Date End Date [facility] GROOMING ASSISTANT [address] [place] [address] PCP - General Family Medicine 01/19/21 Robin Mark, RN [address] [place] [address] Specialty Insulator Helper Radiation Oncology 10/17/22 Scientific Programmer Analyst Relationship Specialty Start Date End Date JohnnyAidee muñoz, GROOMING ASSISTANT [address] [place] [address] PCP - General Family Medicine 01/19/21 Robin Mark, [place] [id number] [place] [address] Specialty Insulator Helper Radiation Oncology 10/17/22 Scientific Programmer Analyst Relationship Specialty Start Date End Date Aidee Ramesh, GROOMING ASSISTANT [address] [place] [address] PCP - General Family Medicine 01/19/21 Robin Mark, EARNEST [address] [place] [address] Specialty Insulator Helper Radiation Oncology 10/17/22 Scientific Programmer Analyst Relationship Specialty Start Date End Date Aidee Ramesh, GROOMING ASSISTANT [address] [place] [address] PCP - General Family Medicine 01/19/21 Robin Mark, EARNEST [id number] [place] [address] Specialty Insulator Helper Radiation Oncology 10/17/22 Scientific Programmer Analyst Relationship Specialty Start Date End Date Aidee Ramesh CNP [address] [place] [address] PCP - General Family Medicine 01/19/21 Scientific Programmer Analyst Relationship Specialty Start Date End Date Aidee Ramesh CNP [address] [place] [address] PCP - General Family Medicine 01/19/21 [place] [address] [place] [address] Specialty Insulator Helper Radiation Oncology 10/17/22 Scientific Programmer Analyst Relationship Specialty Start Date End Date Aidee Ramesh GROOMING ASSISTANT [address] [place] [address] PCP - General Family Medicine 01/19/21 [place] [address] [place] [address] Specialty Insulator Helper Radiation Oncology 10/17/22 Scientific Programmer Analyst Relationship Specialty Start Date End Date Aidee Ramesh CNP [address] [place] [address] PCP - General Family Medicine 01/19/21 [place] [address] [place] [address] Specialty Insulator Helper Radiation Oncology 10/17/22 Scientific Programmer Analyst Relationship Specialty Start Date End Date Aidee Ramesh, GENO [address] [place] [address] PCP - General Family Medicine 01/19/21 [place] [address] [place] [address] Specialty Insulator Helper Radiation Oncology 10/17/22 Scientific Programmer Analyst Relationship Specialty Start Date End Date JohnnydeniAidee GROOMING ASSISTANT [address] [place] [address] PCP - General Family [facility] 01/19/21 [place] [address] [place] [address] Specialty Insulator Helper Radiation Oncology 10/17/22 Scientific Programmer Analyst Relationship Specialty Start Date End Date [facility] GROOMING ASSISTANT [address] [place] [address] PCP - General Family [facility] 01/19/21 [place] [address] [place] [address] Specialty Insulator Helper Radiation Oncology 10/17/22 PRN Active and Recently Administ ered Medications (unrecognized section and content) Medication Order 09/19/2022 09/20/2022 09/21/2022 acetaminophen 650 mg tab(s) (TYLENOL) 650 mg, ORAL, NEEDED, 1 dose, Starting on Mon09/21/22 at 1140, Until Marielena 09/22/22 at 0304, Mild Pain (1-3) - Enteral, Moderate Pain (4-6) - Enteral, Severe Pain (>/=7) - Enteral, If ordered PRN for pain, patient/guardian may elect to receive this medication for higher pain levels INSTEAD of the opioid, if preferred: Yes albuterol 2.5 mg /3 mL (0.083 %) 2.5 mg (PROVENTIL) 2.5 mg, INHALATION, NEEDED, 1 dose, Starting on Mon09/21/22 at 1140, Until Marielena 09/22/22 at 0304, wheezing/shortness of breath, cough/wheezing FOR RECORDS PERTAINING TO PATIENTS WHO ARE OR HAVE BEEN ENROLLED IN A CHEMICAL DEPENDENCY/SUBSTANCEABUSE PROGRAM, SOME INFORMATION MAY BE OMITTED. This clinical summary was aggregated from multiple sources. Caution should be exercised in using it in the provision of clinical care. This summary normalizes information from multiple sources, and as a consequence, information in this document may materially change the coding, format and clinical context of patient data. In addition, data may be omitted in some cases. CLINICAL DECISIONS SHOULD BE BASED ON THE PRIMARY CLINICAL RECORDS. [facility]. provides no warranty or guarantee of the accuracy or completeness of information in this document.
--- NOTE | 2024-06-10 21:53 | PC.NURSE ---
pt O2 bumped up to 4L for better O2 sats
[2024-06-10 22:15] LABS: Basophils Absolute Auto 0.1 10^3/uL (0.0-0.1); Basophils Percent Auto 1.1 % (0.2-2.0); Eosinophils Absolute Auto 0.3 10^3/uL (0.0-0.7); Eosinophils Percent Auto 3.6 % (0.9-7.0); Hematocrit 47.1 % (42.0-54.0); Hemoglobin 14.1 g/dL (14.0-18.0); Immature Granulocytes Abs Auto 0.01 10^3/uL (0.00-0.03); Immature Granulocytes Pct Auto 0.1 % (0.0-0.5); Lymphocytes Absolute Auto 1.8 10^3/uL (1.2-3.8); Lymphocytes Percent Auto 25.7 % (20.5-60.0); Mean Corpuscular HGB Conc 29.9 g/dL (29.9-35.2); Mean Corpuscular Hemoglobin 29.3 pg (25.9-34.0); Mean Corpuscular Volume 97.7 fL (80.0-94.0); Mean Platelet Volume 10.6 fL (9.5-13.5); Monocytes Absolute Auto 0.7 10^3/uL (0.3-0.8); Monocytes Percent Auto 9.8 % (1.7-12.0); Neutrophils Absolute Auto 4.2 10^3/uL (1.4-6.5); Neutrophils Percent Auto 59.7 % (43.0-75.0); Platelet Count 177 10^3/uL (150-450); Red Blood Count 4.82 10^6/uL (4.70-6.10); Red Cell Distribution Width 14.8 % (11.0-15.0)
[2024-06-10 22:41] LABS: Internal Control Within Normal Limits; SARS-CoV-2 Ag NEGATIVE (NEGATIVE)
[2024-06-10 22:46] LABS: Anion Gap 3.6; BUN Creatinine Ratio 17.8; Calcium 9.9 mg/dL (8.5-10.1); Carbon Dioxide 42.9 mmol/L (21.0-32.0); Chloride 100 mmol/L (98-107); Estimated GFR (African America >60 (>=60); Estimated GFR (Non-African Ame >60 (>=60); Glucose 69 mg/dL (74-106); Potassium 4.5 mmol/L (3.5-5.1); Sodium 142 mmol/L (136-145); Troponin I High Sensitivity 7.7 pg/mL (4.0-76.1)
--- NOTE | 2024-06-10 23:10 | ED.GENADUL1 ---
HPI HPI - General Adult General Chief complaint: Shortness of Breath/Dyspnea Stated complaint: SOB Time Seen by Provider: 06/10/24 21:29 Source: patient Mode of arrival: Wheelchair History of Present Illness HPI narrative: 73-year-old male presents for shortness of breath. He has a history of lung cancer and over the past few days has gotten more short of breath. He is on home oxygen but it has not been helping. He has had a thoracentesis 1 time before. He has not had a fever and he has been coughing up a small amount of clear phlegm. No vomiting or diarrhea or fever. Exertion makes it much worse. Related Data Home Medications ?Medication ?Instructions ?Recorded ?Confirmed albuterol sulfate 2.5 mg/3 mL 2.5 mg inhalation Q4H PRN 06/10/24 06/10/24 (0.083 %) solution for nebulization shortness of breath or wheezing amlodipine 5 mg tablet 5 mg PO DAILY 06/10/24 06/10/24 atorvastatin 20 mg tablet 20 mg PO DAILY 06/10/24 06/10/24 bupropion HCl 150 mg 24 hr tablet, 150 mg PO DAILY 06/10/24 06/10/24 extended release fluticasone fur. 100 mcg-umeclid 1 inh inhalation DAILY 06/10/24 06/10/24 62.5 mcg-vilant 25 mcg inhalat.powder (Trelegy Ellipta) losartan 25 mg tablet 25 mg PO DAILY 06/10/24 06/10/24 metformin 500 mg tablet 500 mg PO BID 06/10/24 06/10/24 omeprazole 40 mg capsule,delayed 40 mg PO DAILY 06/10/24 06/10/24 release sertraline 100 mg tablet 100 mg PO DAILY 06/10/24 06/10/24 Allergies Allergy/AdvReac Type Severity Reaction Status Date / Time No Known Drug Allergies Allergy Verified 06/10/24 21:32 Opioid HPI Opioid Management Most Recent Opioid Data: No Data to Display Review of Systems ROS Narrative A ten point review of systems is negative except as noted above. [facility] Medical History (Updated 06/11/24 @ 00:24 by Devin Martin MD) Emphysema lung ?J43.9 - Emphysema, unspecified (ICD-10) High cholesterol ?E78.00 - Pure hypercholesterolemia, unspecified (ICD-10) Diabetes ?E11.9 - Type 2 diabetes mellitus without complications (ICD-10) Hypertension ?I10 - Essential (primary) hypertension (ICD-10) Lung cancer ?C34.90 - Malignant neoplasm of unspecified part of unspecified bronchus or lung (ICD-10) Exam Narrative Exam Narrative: Nurses note and vital signs reviewed and patient is not hypoxic. General: The patient appears somewhat dyspneic. When I walked into the room he is standing and speaking in short sentences. No cyanosis. Skin: Warm, dry, no pallor noted. There is no rash noted. Head: Normocephalic, atraumatic Eye: Normal conjunctiva, no drainage Ears, Nose, Mouth, and Throat: oral mucosa is moist. Nares patent. Cardiovascular: Regular Rate and Rhythm Respiratory: Dyspneic, breath sounds are diminished bilaterally Back: non-tender GI: Soft and nontender Musculoskeletal: The patient has no evidence of calf tenderness, no pitting edema, symmetrical pulses noted bilaterally Neurological: A&O, normal speech Psychiatric: Cooperative Constitutional Vital Signs, click to edit/add: Last Vital Signs Temp 97.8 F 06/10/24 21:32 Pulse 79 06/10/24 23:50 Resp 18 06/10/24 23:50 BP 101/53 06/10/24 23:30 Pulse Ox 96 06/10/24 23:50 O2 Del Method Nasal Cannula 06/10/24 21:53 O2 Flow Rate 4 06/10/24 21:53 Course Vital Signs Vital signs: Vital Signs Temperature 97.8 F 06/10/24 21:32 Pulse Rate 76 06/10/24 21:32 Respiratory Rate 24 H 06/10/24 21:32 Blood Pressure 122/58 06/10/24 21:32 Pulse Oximetry 92 L 06/10/24 21:32 Oxygen Delivery Method Nasal Cannula 06/10/24 21:32 Oxygen Delivery Flow Rate 2 06/10/24 21:32 Temperature 97.8 F 06/10/24 21:32 Pulse Rate 79 06/10/24 23:50 Respiratory Rate 18 06/10/24 23:50 Blood Pressure 101/53 06/10/24 23:30 Pulse Oximetry 96 06/10/24 23:50 Oxygen Delivery Method Nasal Cannula 06/10/24 21:53 Oxygen Delivery Flow Rate 4 06/10/24 21:53 Medical Decision Making MDM Narrative Medical decision making narrative: Pleural effusion on the right is identified and he is quite symptomatic. We do not have availability of thoracentesis here and family and the patient are requesting transfer to [facility]. I have spoken to Dr. Mckenzie at [facility] who accepts the patient. The patient is agreeable and stable for transfer. Findings were discussed thoroughly. Differential Diagnosis Differential Diagnosis: Pleural effusion, pneumonia, COVID, pneumothorax Lab Data Lab results reviewed: Yes I reviewed the patient's lab results Labs: Lab Results 06/10/24 06/10/24 06/10/24 Range/Units 21:45 21:49 23:32 WBC 7.0 (4.0-11.0) 10^3/uL RBC 4.82 (4.70-6.10) 10^6/uL Hgb 14.1 (14.0-18.0) g/dL Hct 47.1 (42.0-54.0) % MCV 97.7 H (80.0-94.0) fL MCH 29.3 (25.9-34.0) pg MCHC 29.9 (29.9-35.2) g/dL RDW 14.8 (11.0-15.0) % Plt Count 177 (150-450) 10^3/uL MPV 10.6 (9.5-13.5) fL Neut % (Auto) 59.7 (43.0-75.0) % Lymph % (Auto) 25.7 (20.5-60.0) % [place] % (Auto) 9.8 (1.7-12.0) % Eos % (Auto) 3.6 (0.9-7.0) % Baso % (Auto) 1.1 (0.2-2.0) % Neut # (Auto) 4.2 (1.4-6.5) 10^3/uL Lymph # (Auto) 1.8 (1.2-3.8) 10^3/uL [place] # (Auto) 0.7 (0.3-0.8) 10^3/uL Eos # (Auto) 0.3 (0.0-0.7) 10^3/uL Baso # (Auto) 0.1 (0.0-0.1) 10^3/uL Abs Immat Gran (auto) 0.01 (0.00-0.03) 10^3/uL Imm/Tot Granulo (auto) 0.1 (0.0-0.5) % Sodium 142 (136-145) mmol/L Potassium 4.5 (3.5-5.1) mmol/L Chloride 100 (98-107) mmol/L Carbon Dioxide 42.9 H (21.0-32.0) mmol/L Anion Gap 3.6 BUN 16.0 (7.0-18.0) mg/dL Creatinine 0.90 (0.70-1.30) mg/dL Est GFR ( Amer) >60 (>=60) Est GFR (Non-Af Amer) >60 (>=60) BUN/Creatinine Ratio 17.8 Glucose 69 L (74-106) mg/dL Calcium 9.9 (8.5-10.1) mg/dL Troponin I High Sens 7.7 (4.0-76.1) pg/mL NT-Pro-B Natriuret Pep 216.0 (<=900.0) pg/mL SARS-CoV-2 Ag (CV2AG) Negative (NEGATIVE) POC Glucose 67 L (74-106) mg/dL 06/11/24 Range/Units 00:15 WBC (4.0-11.0) 10^3/uL RBC (4.70-6.10) 10^6/uL Hgb (14.0-18.0) g/dL Hct (42.0-54.0) % MCV (80.0-94.0) fL MCH (25.9-34.0) pg MCHC (29.9-35.2) g/dL RDW (11.0-15.0) % Plt Count (150-450) 10^3/uL MPV (9.5-13.5) fL Neut % (Auto) (43.0-75.0) % Lymph % (Auto) (20.5-60.0) % [place] % (Auto) (1.7-12.0) % Eos % (Auto) (0.9-7.0) % Baso % (Auto) (0.2-2.0) % Neut # (Auto) (1.4-6.5) 10^3/uL Lymph # (Auto) (1.2-3.8) 10^3/uL [place] # (Auto) (0.3-0.8) 10^3/uL Eos # (Auto) (0.0-0.7) 10^3/uL Baso # (Auto) (0.0-0.1) 10^3/uL Abs Immat Gran (auto) (0.00-0.03) 10^3/uL Imm/Tot Granulo (auto) (0.0-0.5) % Sodium (136-145) mmol/L Potassium (3.5-5.1) mmol/L Chloride (98-107) mmol/L Carbon Dioxide (21.0-32.0) mmol/L Anion Gap BUN (7.0-18.0) mg/dL Creatinine (0.70-1.30) mg/dL Est GFR ( Amer) (>=60) Est GFR (Non-Af Amer) (>=60) BUN/Creatinine Ratio Glucose (74-106) mg/dL Calcium (8.5-10.1) mg/dL Troponin I High Sens (4.0-76.1) pg/mL NT-Pro-B Natriuret Pep (<=900.0) pg/mL SARS-CoV-2 Ag (CV2AG) (NEGATIVE) POC Glucose 99 (74-106) mg/dL Imaging Data Chest x-ray: Radiologist's impression: ITS Impressions Chest X-Ray 06/10/24 21:35 IMPRESSION: 1.Moderate right and small left pleural effusions with adjacent hazy opacities. 2. Vertical chronic scarring along the right lateral hemithorax is similar to CT 10/20/2023. 3. Spiculated opacity/mass in the right upper chest is also better visualized on prior CT. Electronically authenticated by: LADONNA PISANO Date: 06/10/2024 22:57 ECG Data Attestation: I personally reviewed and interpreted this ECG as follows: (EKG on my interpretation shows sinus rhythm with a rate of 77 and no acute change.) Discharge Plan Discharge Chief Complaint: Shortness of Breath/Dyspnea Clinical Impression: Pleural effusion [facility] Time of Disposition Decision: 00:24 Discharge location: [facility] Condition: Fair Mode of Transportation: EMS
[2024-06-10 23:34] LABS: Glucometer 67 mg/dL (74-106)
[2024-06-11] VITALS (70 sets, daily range): BP systolic 98–136; BP diastolic 44–82; PULSE 63–86; O2SAT 83–99
[2024-06-11 00:17] LABS: Glucometer 99 mg/dL (74-106)
[2024-06-11 04:27] LABS: Glucometer 126 mg/dL (74-106)
[2024-06-11 06:48] LABS: Glucometer 132 mg/dL (74-106)
[2024-06-11] MEDS: IPRATROPIUM/ALBUTEROL SULFATE 3 ML AMPUL.NEB IH (10:25)
[2024-06-11] MEDS: METHYLPREDNISOLONE SOD SUCC PF 125 MG/2 ML VIAL IVP (10:40)
== END 2024-06-11 11:12 | disposition home or self-care (01) ==
PROVIDERS: Emergency Provider Emergency Medicine; PCP Nurse Practitioner
DX: J90 Pleural effusion, not elsewhere classified (principal); Z85.118 Personal history of other malignant neoplasm of bronchus and lung; Z99.81 Dependence on supplemental oxygen; E11.9 Type 2 diabetes mellitus without complications; Z20.822 Contact with and (suspected) exposure to COVID-19
CPT/HCPCS: 36415; 71045; 80048; 82948; 83880; 84484; 85025; 87811; 93005; 94640; 96374; 99285; J2919

== ENCOUNTER 2024-08-19 16:35 | Outpatient (OUT) | payer MEDICARE, MEDICAID, SELFPAY ==
[2024-08-21 08:12] LABS: PSA, Free 0.44 ng/mL; Prostate Specific Ag 3.3 ng/mL (0.0-4.0)
== END 2024-08-19 16:36 | disposition home or self-care (01) ==
LOC: LAB 16:35
PROVIDERS: PCP Nurse Practitioner; Visit Provider Urology
DX: R97.20 Elevated prostate specific antigen [PSA] (principal); Z80.42 Family history of malignant neoplasm of prostate
CPT/HCPCS: 36415; 84153; 84154

== ENCOUNTER 2024-12-30 14:09 | Outpatient (OUT) | payer MEDICARE, MEDICAID, SELFPAY ==
[2024-12-30 14:49] LABS: Basophils Absolute Auto 0.1 10^3/uL (0.0-0.1); Basophils Percent Auto 1.2 % (0.2-2.0); Eosinophils Absolute Auto 0.2 10^3/uL (0.0-0.7); Eosinophils Percent Auto 2.9 % (0.9-7.0); Hematocrit 37.9 % (42.0-54.0); Hemoglobin 11.7 g/dL (14.0-18.0); Immature Granulocytes Abs Auto 0.02 10^3/uL (0.00-0.03); Immature Granulocytes Pct Auto 0.3 % (0.0-0.5); Lymphocytes Absolute Auto 1.5 10^3/uL (1.2-3.8); Mean Corpuscular HGB Conc 30.9 g/dL (29.9-35.2); Mean Corpuscular Hemoglobin 29.7 pg (25.9-34.0); Mean Corpuscular Volume 96.2 fL (80.0-94.0); Mean Platelet Volume 10.4 fL (9.5-13.5); Monocytes Absolute Auto 0.6 10^3/uL (0.3-0.8); Monocytes Percent Auto 8.1 % (1.7-12.0); Neutrophils Absolute Auto 5.2 10^3/uL (1.4-6.5); Neutrophils Percent Auto 68.5 % (43.0-75.0); Platelet Count 172 10^3/uL (150-450); Red Blood Count 3.94 10^6/uL (4.70-6.10); Red Cell Distribution Width 13.2 % (11.0-15.0); White Blood Count 7.6 10^3/uL (4.0-11.0)
[2024-12-30 15:04] LABS: Creatinine Urine Random 195.82 mg/dL (20.00-300.00); Microalbum Creatinine Ratio Ur 39.8 mg/g (0.0-29.9); Microalbumin Urine Random 7.8 mg/dL (<=30.0)
[2024-12-30 15:06] LABS: Alanine Aminotransferase 12 U/L (16-63); Albumin Globulin Ratio 0.7; Albumin Level 3.2 g/dL (3.4-5.0); Alkaline Phosphatase 103 U/L (46-116); Anion Gap 5.7; Aspartate Amino Transferase 13 U/L (15-37); BUN Creatinine Ratio 15.4; Bilirubin Total 0.4 mg/dL (0.2-1.0); Calcium 9.1 mg/dL (8.5-10.1); Carbon Dioxide 37.6 mmol/L (21.0-32.0); Chloride 102 mmol/L (98-107); Chol HDL Ratio 2.5; Cholesterol 131 mg/dL (<=200); Estimated GFR (African America >60 (>=60 mL/min/1.73m^2); Estimated GFR (Non-African Ame >60 (>=60 mL/min/1.73m^2); Globulin 4.5 g/dL; Glucose 157 mg/dL (74-106); HDL Cholesterol 53 mg/dL (40-60); Potassium 4.3 mmol/L (3.5-5.1); Sodium 141 mmol/L (136-145); Total Protein 7.7 g/dL (6.4-8.2); Triglycerides 85 mg/dL (<=150)
[2024-12-30 15:48] LABS: Bilirubin Urine NEGATIVE (NEGATIVE); Blood Urine NEGATIVE (NEGATIVE); Clarity Urine CLEAR (CLEAR); Color Urine YELLOW (YELLOW); Glucose Urine UA NEGATIVE (NEGATIVE); Ketones Urine NEGATIVE (NEGATIVE); Leukocyte Esterase Urine NEGATIVE (NEGATIVE); Nitrite Urine NEGATIVE (NEGATIVE); Protein Urine TRACE mg/dL (NEG/TRACE); Specific Gravity Urine 1.025 (1.005-1.025); Urobilinogen Urine 0.2 EU/dL (0.2-1.0)
[2024-12-30 15:51] LABS: Urine Microscopic Indicated NO
== END 2024-12-30 14:10 | disposition home or self-care (01) ==
LOC: LAB 14:12
PROVIDERS: PCP Nurse Practitioner; Visit Provider Nurse Practitioner
DX: G47.33 Obstructive sleep apnea (adult) (pediatric) (principal); J96.11 Chronic respiratory failure with hypoxia; K21.9 Gastro-esophageal reflux disease without esophagitis; E11.69 Type 2 diabetes mellitus with other specified complication; I10 Essential (primary) hypertension; E11.9 Type 2 diabetes mellitus without complications; E78.2 Mixed hyperlipidemia
CPT/HCPCS: 36415; 80053; 80061; 81003; 82043; 82570; 85025

== ENCOUNTER 2025-01-07 16:20 | Outpatient (OUT) | payer MEDICARE, MEDICAID, SELFPAY ==
[2025-01-07 17:31] LABS: Percent Iron Saturation 17.2 %
[2025-01-09 03:07] LABS: Vitamin B12 354 pg/mL (232-1245)
[2025-01-09 05:12] LABS: Transferrin 200 mg/dL (177-329)
== END 2025-01-07 16:21 | disposition home or self-care (01) ==
PROVIDERS: PCP Nurse Practitioner; Visit Provider Nurse Practitioner
DX: D50.8 Other iron deficiency anemias (principal)
CPT/HCPCS: 36415; 82607; 82728; 83540; 83550; 84466

== ENCOUNTER 2025-09-01 09:58 | Outpatient (OUT) | payer MEDICARE, MEDICAID, SELFPAY ==
[2025-09-01 10:38] LABS: Hematocrit 41.3 % (42.0-54.0); Hemoglobin 12.5 g/dL (14.0-18.0); Immature Granulocytes Abs Auto 0.02 10^3/uL (0.00-0.03); Immature Granulocytes Pct Auto 0.2 % (0.0-0.5); Lymphocytes Absolute Auto 1.9 10^3/uL (1.2-3.8); Mean Corpuscular HGB Conc 30.3 g/dL (29.9-35.2); Mean Corpuscular Hemoglobin 29.6 pg (25.9-34.0); Mean Corpuscular Volume 97.6 fL (80.0-94.0); Platelet Count 182 10^3/uL (150-450); Red Blood Count 4.23 10^6/uL (4.70-6.10); White Blood Count 9.3 10^3/uL (4.0-11.0)
[2025-09-01 11:17] LABS: Anion Gap 9.3; Blood Urea Nitrogen 19.0 mg/dL (7.0-18.0); Calcium 9.0 mg/dL (8.5-10.1); Carbon Dioxide 39.2 mmol/L (21.0-32.0); Chloride 102 mmol/L (98-107); Estimated GFR (African America >60 (>=60 mL/min/1.73m^2); Estimated GFR (Non-African Ame 58 (>=60 mL/min/1.73m^2); Glucose 96 mg/dL (74-106); Potassium 4.5 mmol/L (3.5-5.1); Sodium 146 mmol/L (136-145)
[2025-09-01 11:38] LABS: Iron 36.0 ug/dL (65.0-175.0); Percent Iron Saturation 13.0 %; Total Iron Binding Capacity 277.0 ug/dL (250.0-450.0)
[2025-09-01 12:29] LABS: Ferritin 96.0 ng/mL (26.0-388.0)
== END 2025-09-01 09:59 | disposition home or self-care (01) ==
LOC: LAB 10:04
PROVIDERS: PCP Nurse Practitioner; Visit Provider Nurse Practitioner
DX: D50.9 Iron deficiency anemia, unspecified (principal); E11.9 Type 2 diabetes mellitus without complications; I10 Essential (primary) hypertension; K21.9 Gastro-esophageal reflux disease without esophagitis; R06.81 Apnea, not elsewhere classified
CPT/HCPCS: 36415; 80048; 82728; 83540; 83550; 85025